=== PATIENT | female | born 1945 | race Caucasian/White ===

== ENCOUNTER → 2018-05-04 01:12 | Outpatient (CLI) | payer MEDICARE, SELFPAY ==
--- NOTE | 2018-05-04 10:30 | MERGE_ITS ---
*[facility]* *[facility]* [address] [place] [address] Date of study: 05/04/2018 Transthoracic Echocardiography M-mode, complete 2D, complete spectral Doppler, and color Doppler *STUDY CONCLUSIONS* Impressions: Cardiomyopathy, improved from the study of 10/2017. Summary: 1. Left ventricle: The cavity size was normal. Wall thickness was increased in a pattern of mild LVH. Systolic function was mildly to moderately reduced. The estimated ejection fraction was 40%. Diffuse hypokinesis. 2. Ventricular septum: Septal motion showed paradoxical motion consistent with Bundle Branch Block. 3. Aortic valve: There was trivial regurgitation. 4. Mitral valve: Mildly calcified annulus. Mildly thickened leaflets. There was mild regurgitation. 5. Left atrium: The atrium was mildly dilated. 6. Right ventricle: The cavity size was normal. Wall thickness was normal. Systolic function was reduced. 7. Pulmonary arteries: Pulmonary systolic pressure was moderately increased, in the range of 45mm Hg to 50mm Hg. *PATIENT PRESENTATION* Height: 167.6cm ((66in) ) S/D Pressure: 127 / 48 Weight: 108.9kg ((239.5lb) ) BSA: 2.3m^2 Test start time: 10:46 AM. Test stop time: 11:35 AM. PERFORMING Unknown ORDERING Tong Ray REFERRING Tong Ray PERFORMING [facility] SKI GUIDE RT Lucrecia (R)(CT)MAR *PROCEDURE DATA* Procedure information: This study was interpreted by [facility]. Pertinent images and digital data are archived for permanent storage and are available for subsequent review. Comparison was made to the study of 11/02/2017. Study status: Routine. Transthoracic echocardiography. M-mode, complete 2D, complete spectral Doppler, and color Doppler. A Transthoracic Echocardiogram was performed. Scanning was performed from the parasternal, apical, subcostal, and suprasternal notch acoustic windows. Images were obtained using an [id number] cardiac ultrasound machine. Image quality was adequate. Study completion: The patient tolerated the procedure well. There were no complications. History: PMH: Cardiomyopathy. CAD with no angina pectoris. *CARDIAC ANATOMY* Left ventricle: The cavity size was normal. Wall thickness was increased in a pattern of mild LVH. Systolic function was mildly to moderately reduced. The estimated ejection fraction was 40%. Diffuse hypokinesis. Aortic valve: Trileaflet; normal thickness leaflets. Mobility was not restricted. Doppler: Transvalvular velocity was within the normal range. There was no stenosis. There was trivial regurgitation. VTI ratio of LVOT to aortic valve: 0.53. Valve area (VTI): 1.7cm^2. Indexed valve area (VTI): 0.7cm^2/m^2. Peak velocity ratio of LVOT to aortic valve: 0.5. Valve area (Vmax): 1.6cm^2. Indexed valve area (Vmax): 0.7cm^2/m^2. Mean velocity ratio of LVOT to aortic valve: 0.6. Valve area (Vmean): 1.9cm^2. Indexed valve area (Vmean): 0.8cm^2/m^2. Mean gradient (S): 9.1mm Hg. Peak gradient (S): 18.9mm Hg. Aorta: Aortic root: The aortic root was normal in size. Ascending aorta: The ascending aorta was normal in size. Mitral valve: Mildly calcified annulus. Mildly thickened leaflets. Mobility was not restricted. Doppler: Transvalvular velocity was within the normal range. There was no evidence for stenosis. There was mild regurgitation. Valve area by pressure half-time: 3.3cm^2. Indexed valve area by pressure half-time: 1.4cm^2/m^2. Peak gradient (D): 2.1mm Hg. Left atrium: The atrium was mildly dilated. Right ventricle: The cavity size was normal. Wall thickness was normal. Systolic function was reduced. Ventricular septum: Septal motion showed paradoxical motion consistent with Bundle Branch Block. Pulmonic valve: Structurally normal valve. Doppler: Transvalvular velocity was within the normal range. There was no evidence for stenosis. There was trivial regurgitation. Peak gradient (S): 9.3mm Hg. Tricuspid valve: Structurally normal valve. Doppler: Transvalvular velocity was within the normal range. There was no evidence for stenosis. There was mild regurgitation. Pulmonary artery: Pulmonary systolic pressure was moderately increased, in the range of 45mm Hg to 50mm Hg. Right atrium: The atrium was normal in size. Pericardium: There was no pericardial effusion. Systemic veins: Inferior vena cava: Well visualized. The vessel was patent and normal in size. The respirophasic diameter changes were in the normal range (greater than or equal to 50%). Baseline ECG: Sinus bradycardia. Measurements Left ventricle Value 11/02/2017 Reference LV ID, ED, PLAX 5.0 cm 4.9 3.5 - 6.0 LV ID, ES, PLAX (H) 4.1 cm 4.1 2.1 - 4.0 LV PW thickness, ED, PLAX 1.1 cm 1.1 LV end-diastolic volume, 101 ml 128 1-p A2C LV ejection fraction, 1-p 34 % 43 A2C LV end-diastolic volume, 90 ml 105 1-p A4C LV ejection fraction, 1-p 34 % 34 A4C LV e', lateral 0.074 m/sec LV E/e', lateral 10 LV e', medial 0.058 m/sec LV E/e', medial 13 LV e', average 0.066 m/sec LV E/e', average 11 Ventricular septum Value 11/02/2017 Reference IVS thickness, ED, PLAX 1.1 cm 1.2 LVOT Value 11/02/2017 Reference LVOT ID, A-P 2.0 cm 2.0 LVOT area 3.2 cm^2 3.2 LVOT peak velocity, S 1.09 m/sec 1.22 LVOT mean velocity, S 0.87 m/sec LVOT VTI, S 27.6 cm 29.1 LVOT peak gradient, S 4.8 mm Hg 5.9 LVOT mean gradient, S 3.2 mm Hg 2.9 Stroke volume (SV), LVOT 89 ml DP Stroke index (SV/bsa), 39 ml/m^2 LVOT DP Aortic valve Value 11/02/2017 Reference Aortic valve peak 2.2 m/sec 2.1 velocity, S Aortic valve mean 1.44 m/sec 0.02 velocity, S Aortic valve VTI, S 52.5 cm Aortic mean gradient, S 9.1 mm Hg 10.2 Aortic peak gradient, S 18.9 mm Hg 18 VTI ratio, LVOT/AV 0.53 0.54 Aortic valve area, VTI 1.7 cm^2 1.7 Velocity ratio, peak, 0.5 0.57 LVOT/AV Aortic valve area, peak 1.6 cm^2 1.8 velocity Velocity ratio, mean, 0.6 LVOT/AV Aortic valve area, mean 1.9 cm^2 velocity Aortic valve area/bsa, 0.8 cm^2/m^2 mean velocity Aorta Value 11/02/2017 Reference Aortic root ID, ED 2.6 cm 2.6 Ascending aorta ID, A-P, S 3.1 cm 3.0 RVOT Value 11/02/2017 Reference RVOT VTI, S 19.0 cm 17.4 Left atrium Value 11/02/2017 Reference LA ID, A-P, ES 4.1 cm LA ID/bsa, A-P 1.8 cm/m^2 <=2.2 LA area, ES, A4C 20 cm^2 20 8.8 - 23.4 LA area, ES, A2C 21 cm^2 LA volume/bsa, ES, 1-p A4C 32 ml/m^2 29 LA volume, ES, 2-p 70 ml LA volume/bsa, ES, 2-p 31 ml/m^2 LA/aortic root ratio 1.61 1.43 Mitral valve Value 11/02/2017 Reference Mitral E-wave peak 0.73 m/sec 0.62 velocity Mitral A-wave peak 0.93 m/sec 0.85 velocity Mitral deceleration time 229 ms 290 150 - 230 Mitral pressure half-time 66 ms 84 Mitral peak gradient, D 2.1 mm Hg Mitral E/A ratio, peak 0.79 0.73 Mitral valve area, PHT, DP 3.3 cm^2 2.6 Pulmonary veins Value 11/02/2017 Reference Pulmonary vein peak 0.67 m/sec 0.53 velocity, S Pulmonary vein peak 0.41 m/sec 0.55 velocity, D Pulmonary vein velocity 1.64 0.96 ratio, peak, S/D Pulmonary vein A-wave 0.31 m/sec 0.33 reversal peak velocity Pulmonary vein A-wave 141 ms 141 reversal duration Tricuspid valve Value 11/02/2017 Reference Tricuspid regurg peak 4.1 m/sec 3.9 velocity Tricuspid peak RV-RA 68 mm Hg 59.7 gradient Right atrium Value 11/02/2017 Reference RA area, ES, A4C 17.9 cm^2 21 8.3 - 19.5 Pulmonic valve Value 11/02/2017 Reference Pulmonic peak gradient, S 9.3 mm Hg 6.6 Legend: (L) and (H) rakel values outside specified reference range. I have personally reviewed the images and have reviewed and edited the reported findings. Electronically signed by Tong Ray 05/04/2018 12:09
== END ==
PROVIDERS: PCP Nurse Practitioner Family; Visit Provider Student in an Organized Health Care Education/Training Program
DX: I25.10 Atherosclerotic heart disease of native coronary artery without angina pectoris (principal); I42.9 Cardiomyopathy, unspecified; I08.0 Rheumatic disorders of both mitral and aortic valves; Z98.61 Coronary angioplasty status
CPT/HCPCS: 93306

== ENCOUNTER 2018-06-21 01:09 | Outpatient (CLI) | payer MEDICARE, SELFPAY ==
--- NOTE | 2018-06-21 08:15 | DI.CTLCSR_ITS ---
SYMPTOMS/DIAGNOSIS: COPD STAGE III, SEVERE, J44.9; FORMER SMOKER, Z87.891, H/O 50-60 YEARS SMOKING, ? LUNG CA CT SCAN OF THE CHEST: Noncontrast CT scan of the chest was performed according to the low dose CT protocol. There are no priors for comparison. There is atherosclerosis of the thoracic aorta, but no aneurysmal dilatation is present. The heart size is within normal limits. No significant pericardial effusion is seen. Coronary artery calcifications are identified. No significant mediastinal or hilar adenopathy is seen on this noncontrast examination. No pleural effusion or pneumothorax is present. Moderately severe central lobular emphysematous changes are present in the lungs. No focal consolidating infiltrates are seen. Several noncalcified nodular densities are present in the lungs, the largest is 8 mm in diameter, the smallest is 4 mm in diameter. Note is made of a calcified granuloma in the left upper lobe laterally. The tracheobronchial tree is unremarkable. Upper abdominal images show multiple stones within the gallbladder. Findings consistent with DISH in the thoracic spine are noted. IMPRESSION: 1. Multiple pulmonary nodules. The largest measures 8 mm in diameter. Category 4B. 2. Moderately severe emphysematous changes in the lungs. 3. Cholelithiasis. Lung-RAD Category: 4B- Suspicious Lung- RAD Management of Findings: Chest CT, PET/CT, and/or tissue sampling
== END 2018-06-21 01:29 ==
PROVIDERS: PCP Nurse Practitioner Family; Visit Provider Nurse Practitioner Family
DX: Z12.2 Encounter for screening for malignant neoplasm of respiratory organs (principal); J44.9 Chronic obstructive pulmonary disease, unspecified; R91.8 Other nonspecific abnormal finding of lung field; J43.9 Emphysema, unspecified; K80.20 Calculus of gallbladder without cholecystitis without obstruction
CPT/HCPCS: G0297

== ENCOUNTER 2018-07-04 17:09 | Inpatient (IN) | payer MEDICARE, SELFPAY ==
[2018-07-04 17:13] VITALS: BP 163/46; PULSE 104; RESP 21; TEMP 37.8; O2SAT 90
[2018-07-04 17:17] VITALS: RESP 15
--- NOTE | 2018-07-04 17:31 | W.ED.GENAD ---
Discharge Plan Discharge Details Chief Complaint: SOB Reason For Visit: PNEUMONIA, COPD EXACERBATION Admit Date/Time: 07/04/18 19:42 Admit Provider: Nithin De Leon Attending Provider: Nithin De Leon Primary Care Provider: Gissel Carbone ED Provider: Atul Moralez Medical Decision Making 73-year-old female with oxygen dependent COPD presents with worsening cough shortness of breath of weeks time. She arrives afebrile with but with initial oxygenation in the 80s on home levels of 2 L. She is mildly tachycardic on with some clipped sentences due to dyspnea. Patient's differential diagnosis includes pneumonia, bronchitis, COPD exacerbation, consideration of fluid overload. She has history of dilated cardiomyopathy and stage C heart failure. Patient IV access established, given DuoNeb updraft, parenteral steroids, referred for laboratory testing and chest XR. While in the ED, the patient developed chest pain Prev Data: Cardiac catheterization from December 2017: Left main normal. Second diagonal 40%. Left circumflex 40%. RCA 40%. LVEDP 22. No intervention; Nuclear stress test from November 2017: Moderate to large defect involving the mid to apical anterior anteroseptal, inferior septal and apical hendricks; Echocardiogram from October 2017 reviewd. Normal sized LV. EF 35 to 40%. Mild RV dysfunction. PAPS 45 to 50 mmH. Today the patient has a negative troponin, persistent renal insufficiency, and BNP 1210. CXR with increased patchy opacification in the lung bases which may represent infiltrates. Possible small right pleural effusion. No cardiomegaly. Pt was diuresed with lasix, given aspirin, and required 2 SL NTG with control of complaint of chest discomfort. She has multimodal reasons for acute chest discomfort including fluid overload, underlying pneumonia. Case discussed with Dr De Leon and pt to be admitted. ECG Data Attestation: I personally reviewed and interpreted this ECG (s) as follows: Interpretation: Normal sinus rhythm with left bundle branch block pattern, no ST segment elevation present, similar to September 2011 HPI General Mode of arrival: wheelchair. Date/Time Provider Initiated Documentation: 07/04/18 17:22. Limitations to Documentation: no limitations. Information obtained by: patient. History of Present Illness described as moderate, Quality is described as constant, and is localized to the chest. Patient reports no radiation. Patient started experiencing this day(s) and it has been constant. No relieving factors improve symptom(s), No exacerbating factors reported . HPI Narrative: Shortness of breath: 73-year-old female presents from home with weeks to months of shortness of breath with cough and congestion. She has 2 L oxygen dependent uses inhalers at home. She not currently on steroids. States she has had a fever and increased production of sputum over the past few days time. She has not had chest pain or lower extremity edema. Related Data Home Medications Medication Instructions Recorded Confirmed aspirin [Aspir-81] 81 mg PO DAILY 08/06/13 07/04/18 nitroglycerin [Nitrostat] 0.4 mg PO PRN PRN 08/06/13 07/04/18 triamcinolone acetonide 1 applic TOPICAL PRN PRN 08/06/13 07/04/18 levalbuterol tartrate [Xopenex HFA] 45 mcg INHALATION Q4H PRN #1 01/24/14 07/04/18 inhaler cholecalciferol (vitamin D3) 2,000 unit PO DAILY 10/09/15 07/04/18 [Vitamin D3] hydroxyzine pamoate [Vistaril] 25 mg PO DAILY PRN 10/09/15 07/04/18 losartan 100 mg PO DAILY 10/09/15 07/04/18 omeprazole [Prilosec] 20 mg PO DAILY PRN 10/09/15 07/04/18 ketoconazole 60 gm TOPICAL BID #1 tube 02/22/16 07/04/18 acetaminophen 650 mg PO Q4H PRN #30 tablet.er 11/12/17 07/04/18 bisoprolol fumarate 10 mg PO DAILY #60 tab-cap 12/01/17 07/04/18 atorvastatin 40 mg PO DAILY #30 tab-cap 01/06/18 07/04/18 spironolactone 12.5 mg PO DAILY #30 tab-cap 01/06/18 07/04/18 Fluticasone/Salmeterol [Advair 1 ea INHALATION BID 02/12/18 07/04/18 500-50 Diskus] Pentoxifylline 400 mg PO TID 02/12/18 07/04/18 benzonatate 100 mg PO TID PRN PRN 02/12/18 07/04/18 clotrimazole 1 applic TOPICAL TID 02/12/18 07/04/18 gabapentin 100 mg PO HS 02/12/18 07/04/18 glipizide 5 mg PO DAILY 02/12/18 07/04/18 insulin detemir U-100 [Levemir 50 unit SQ QPM 02/12/18 07/04/18 U-100 Insulin] ipratropium-albuterol 3 ml INHALATION Q6H PRN PRN 02/12/18 07/04/18 metformin 1,000 mg PO DAILY 02/12/18 07/04/18 budesonide-formoterol [Symbicort] 2 puff INHALATION BID inh 02/18/18 07/04/18 furosemide 40 mg PO BID DIURETIC tab 02/18/18 07/04/18 Previous Rx's Medication Instructions Recorded ketoconazole 60 gm TOPICAL BID #1 tube 02/22/16 acetaminophen 650 mg PO Q4H PRN #30 tablet.er 11/12/17 bisoprolol fumarate 10 mg PO DAILY #60 tab-cap 12/01/17 atorvastatin 40 mg PO DAILY #30 tab-cap 01/06/18 spironolactone 12.5 mg PO DAILY #30 tab-cap 01/06/18 budesonide-formoterol [Symbicort] 2 puff INHALATION BID inh 02/18/18 furosemide 40 mg PO BID DIURETIC tab 02/18/18 Allergies Allergy/AdvReac Type Severity Reaction Status Date / Time peach Allergy Intermediate HIVES Unverified 07/04/18 20:44 Iodinated Contrast- Oral and Allergy Unknown Unverified 07/04/18 20:44 IV Dye [Iodinated Contrast Media - IV Dye] morphine AdvReac Intermediate Nausea Unverified 07/04/18 20:44 General Stated Complaint: SOB KRYSTAL: 3 Review of Systems Review of Systems 8 systems reviewed and otherwise PFSH Social History Smoking/Tobacco Use Status: Former Tobacco Use Surgical History 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) Exam Narrative Exam Narrative: GEN: awake, alert, oriented 3. Pleasant, well groomed, interactive. HEAD: Normocephalic, atraumatic ENT: Mucous membranes moist, oropharynx unremarkable, External ear exam unremarkable EYES: PERRL, EOMI NECK: Full ROM, no PATRICIA, no menigismus CHEST/RESP: Nontender, diminished throughout, cough with end expiratory wheeze bilaterally CARDIOVASCULAR: Regular, tachycardia, no murmur, rub natali. 2+ Rad pulse bilateral ABDOMEN: Soft, nontender, no mass. +Bowel sounds EXT: Full ROM, 1+ bilateral symmetric pretibial edema, no rash Neuro: Grossly normal neurologic exam, conversant, interactive. Psych: Speech fluent, thoughts congruent, affect normal Course Vital Signs Temperature 37.8 C H 07/04/18 17:13 Pulse 104 H 07/04/18 17:13 Respiratory Rate 21 07/04/18 17:13 Blood Pressure 163/46 H 07/04/18 17:13 Pulse Oximetry 90 L 07/04/18 17:13 Temperature 37.8 C H 07/04/18 17:13 Temperature Source Temporal Artery Scan 07/04/18 17:13 Pulse 104 H 07/04/18 17:13 Respiratory Rate 15 07/04/18 17:17 Respiratory Effort 07/04/18 17:17 Blood Pressure 163/46 H 07/04/18 17:13 Pulse Oximetry 90 L 07/04/18 17:13 Oxygen Delivery Method Nasal Cannula 07/04/18 17:13 Oxygen Flow Rate 5 07/04/18 17:13 Pain Level 9 07/04/18 17:13 Comment 07/04/18 17:13
--- NOTE | 2018-07-04 17:34 | ED.GENADUL_ITS ---
Discharge Plan Discharge Details Chief Complaint: SOB Reason For Visit: PNEUMONIA, COPD EXACERBATION Admit Date/Time: 07/04/18 19:42 Admit Provider: Nithin De Leon Attending Provider: Nithin De Leon Primary Care Provider: Gissel Carbone ED Provider: Atul Moralez Medical Decision Making 73-year-old female with oxygen dependent COPD presents with worsening cough shortness of breath of weeks time. She arrives afebrile with but with initial oxygenation in the 80s on home levels of 2 L. She is mildly tachycardic on with some clipped sentences due to dyspnea. Patient's differential diagnosis includes pneumonia, bronchitis, COPD exacerbation, consideration of fluid overload. She has history of dilated cardiomyopathy and stage C heart failure. Patient IV access established, given DuoNeb updraft, parenteral steroids, referred for laboratory testing and chest XR. While in the ED, the patient developed chest pain Prev Data: Cardiac catheterization from December 2017: Left main normal. Second diagonal 40%. Left circumflex 40%. RCA 40%. LVEDP 22. No intervention; Nuclear stress test from November 2017: Moderate to large defect involving the mid to apical anterior anteroseptal, inferior septal and apical hendricks; Echocardiogram from October 2017 reviewd. Normal sized LV. EF 35 to 40%. Mild RV dysfunction. PAPS 45 to 50 mmH. Today the patient has a negative troponin, persistent renal insufficiency, and BNP 1210. CXR with increased patchy opacification in the lung bases which may represent infiltrates. Possible small right pleural effusion. No cardiomegaly. Pt was diuresed with lasix, given aspirin, and required 2 SL NTG with control of complaint of chest discomfort. She has multimodal reasons for acute chest discomfort including fluid overload, underlying pneumonia. Case discussed with Dr De Leon and pt to be admitted. ECG Data Attestation: I personally reviewed and interpreted this ECG (s) as follows: Interpretation: Normal sinus rhythm with left bundle branch block pattern, no ST segment elevation present, similar to September 2011 HPI General Mode of arrival: wheelchair . Date/Time Provider Initiated Documentation: 07/04/18 17:22 . Limitations to Documentation: no limitations . Information obtained by: patient . History of Present Illness described as moderate, Quality is described as constant, and is localized to the chest. Patient reports no radiation. Patient started experiencing this day(s) and it has been constant. No relieving factors improve symptom(s ), No exacerbating factors reported . HPI Narrative: Shortness of breath: 73-year-old female presents from home with weeks to months of shortness of breath with cough and congestion. She has 2 L oxygen dependent uses inhalers at home. She not currently on steroids. States she has had a fever and increased production of sputum over the past few days time. She has not had chest pain or lower extremity edema. Related Data Home Medications Medication Instructions Recorded Confirmed aspirin [Aspir-81] 81 mg PO DAILY 08/06/13 07/04/18 nitroglycerin [Nitrostat] 0.4 mg PO PRN PRN 08/06/13 07/04/18 triamcinolone acetonide 1 applic TOPICAL PRN PRN 08/06/13 07/04/18 levalbuterol tartrate [Xopenex HFA] 45 mcg INHALATION Q4H PRN #1 01/24/14 inhaler cholecalciferol (vitamin D3) 2,000 unit PO DAILY 10/09/15 07/04/18 [Vitamin D3] hydroxyzine pamoate [Vistaril] 25 mg PO DAILY PRN 10/09/15 07/04/18 losartan 100 mg PO DAILY 10/09/15 07/04/18 omeprazole [Prilosec] 20 mg PO DAILY PRN 10/09/15 07/04/18 ketoconazole 60 gm TOPICAL BID #1 tube 02/22/16 07/04/18 acetaminophen 650 mg PO Q4H PRN #30 tablet.er 11/12/17 07/04/18 bisoprolol fumarate 10 mg PO DAILY #60 tab-cap 12/01/17 07/04/18 atorvastatin 40 mg PO DAILY #30 tab-cap 01/06/18 07/04/18 spironolactone 12.5 mg PO DAILY #30 tab-cap 01/06/18 07/04/18 Fluticasone/Salmeterol [Advair 1 ea INHALATION BID 02/12/18 07/04/18 500-50 Diskus] Pentoxifylline 400 mg PO TID 02/12/18 07/04/18 benzonatate 100 mg PO TID PRN PRN 02/12/18 07/04/18 clotrimazole 1 applic TOPICAL TID 02/12/18 07/04/18 gabapentin 100 mg PO HS 02/12/18 07/04/18 glipizide 5 mg PO DAILY 02/12/18 07/04/18 insulin detemir U-100 [Levemir 50 unit SQ QPM 02/12/18 07/04/18 U-100 Insulin] ipratropium-albuterol 3 ml INHALATION Q6H PRN PRN 02/12/18 07/04/18 metformin 1,000 mg PO DAILY 02/12/18 07/04/18 budesonide-formoterol [Symbicort] 2 puff INHALATION BID inh 02/18/18 07/04/18 furosemide 40 mg PO BID DIURETIC tab 02/18/18 07/04/18 Previous Rx's Medication Instructions Recorded ketoconazole 60 gm TOPICAL BID #1 tube 02/22/16 acetaminophen 650 mg PO Q4H PRN #30 tablet.er 11/12/17 bisoprolol fumarate 10 mg PO DAILY #60 tab-cap 12/01/17 atorvastatin 40 mg PO DAILY #30 tab-cap 01/06/18 spironolactone 12.5 mg PO DAILY #30 tab-cap 01/06/18 budesonide-formoterol [Symbicort] 2 puff INHALATION BID inh 02/18/18 furosemide 40 mg PO BID DIURETIC tab 02/18/18 Allergies Allergy/AdvReac Type Severity Reaction Status Date / Time peach Allergy Intermediate HIVES Unverified 07/04/18 20:44 Iodinated Contrast- Oral and Allergy Unknown Unverified 07/04/18 20:44 IV Dye [Iodinated Contrast Media - IV Dye] morphine AdvReac Intermediate Nausea Unverified 07/04/18 20:44 General Stated Complaint: SOB KRYSTAL: 3 Review of Systems Review of Systems 8 systems reviewed and otherwise PFSH Social History Smoking/Tobacco Use Status: Former Tobacco Use Surgical History 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) Exam Narrative Exam Narrative: GEN: awake, alert, oriented 3. Pleasant, well groomed, interactive. HEAD: Normocephalic, atraumatic ENT: Mucous membranes moist, oropharynx unremarkable, External ear exam unremarkable EYES: PERRL, EOMI NECK: Full ROM, no PATRICIA, no menigismus CHEST/RESP: Nontender, diminished throughout, cough with end expiratory wheeze bilaterally CARDIOVASCULAR: Regular, tachycardia, no murmur, rub natali. 2+ Rad pulse bilateral ABDOMEN: Soft, nontender, no mass. +Bowel sounds EXT: Full ROM, 1+ bilateral symmetric pretibial edema, no rash Neuro: Grossly normal neurologic exam, conversant, interactive. Psych: Speech fluent, thoughts congruent, affect normal Course Vital Signs Temperature 37.8 C H 07/04/18 17:13 Pulse 104 H 07/04/18 17:13 Respiratory Rate 21 07/04/18 17:13 Blood Pressure 163/46 H 07/04/18 17:13 Pulse Oximetry 90 L 07/04/18 17:13 Temperature 37.8 C H 07/04/18 17:13 Temperature Source Temporal Artery Scan 07/04/18 17:13 Pulse 104 H 07/04/18 17:13 Respiratory Rate 15 07/04/18 17:17 Respiratory Effort 07/04/18 17:17 Blood Pressure 163/46 H 07/04/18 17:13 Pulse Oximetry 90 L 07/04/18 17:13 Oxygen Delivery Method Nasal Cannula 07/04/18 17:13 Oxygen Flow Rate 5 07/04/18 17:13 Pain Level 9 07/04/18 17:13 Comment 07/04/18 17:13
[2018-07-04 17:44] LABS: Abs Immature Grans 0.02 k/cumm (0.0-0.09); Absolute Basophil Count 0.01 k/cumm (0.0-0.2); Absolute Eosinophil Count 0.06 k/cumm (0.0-0.7); Absolute Lymphocyte Count 1.67 k/cumm (1.2-3.4); Absolute Monocyte Count 1.11 k/cumm (0.11-0.7); Absolute Neutrophil Count 6.69 k/cumm (1.2-6.7); Basophils % 0.1; Eosinophils % 0.6; HCT 36.4 % (36.0-46.0); HGB 12.1 g/dL (12.0-15.5); Immature Grans % 0.2; Lymphocytes % 17.5; Mean Corp. HGB Concentration 33.2 g/dL (32.0-36.0); Mean Corpuscular Volume 96.3 fL (80-95); Mean Platelet Volume 10.7 fL (8.0-11.0); Monocytes % 11.6; Platelet Count 174 x1000/uL (130-400); RBC 3.78 m/cumm (4.00-5.20); RBC Distribution Width 13.2 % (11.7-14.6); White Blood Cell Count 9.56 k/cumm (4.4-10.8)
[2018-07-04 18:00] LABS: ALT 21 U/L (12-78); AST 14 U/L (15-37); Albumin 3.3 g/dL (3.4-5.0); Alkaline Phosphatase 92 U/L (46-116); Anion Gap 11.2 mmol/L (3-11); BUN 21 mg/dL (7-18); Bilirubin, Total 0.9 mg/dL (0.2-1.0); CO2 24.8 mmol/L (21.0-32.0); CREATININE 1.12 mg/dL (0.55-1.02); Calcium 8.7 mg/dL (8.5-10.1); Chloride 104 mmol/L (98-107); Estimated GFR 47.82 (mL/min/1.73m2); Glucose 135 mg/dL (70-100); Magnesium 1.9 mg/dL (1.8-2.4); NT-proBNP 1210 pg/mL; Potassium 3.8 mmol/L (3.5-5.1); Sodium 140 mmol/L (136-145); Total Protein 7.2 g/dL (6.4-8.2)
[2018-07-04 18:02] LABS: Troponin I < 0.02 ng/mL (0.00-0.06)
--- NOTE | 2018-07-04 18:08 | DI.RAD_ITS ---
SYMPTOMS/DIAGNOSIS: SHORT OF BREATH, CHEST PAIN PORTABLE AP CHEST: Comparison 02/12/18. The heart size and pulmonary vasculature are stable. There are bilateral infiltrates in the lower lobes and the right upper lobe. No definite gross effusions or pneumothoraces are identified. Degenerative changes are seen in the spine and shoulders bilaterally. IMPRESSION: Bilateral pulmonary infiltrates suspicious for pneumonia.
[2018-07-04 18:23] VITALS: RESP 8
[2018-07-04] MEDS: MAGNESIUM SULFATE 2 GM/50 ML BAG IVPB (18:23)
[2018-07-04] MEDS: Albuterol/Ipratropium 3 ML UPD VIAL UPD (18:23)
[2018-07-04] MEDS: methylPREDNISolone SUCC 125 MG VIAL IVP (18:24)
[2018-07-04] MEDS: Furosemide 40 MG/4 ML VIAL IVP (18:25)
[2018-07-04] MEDS: Aspirin 81 MG CHEW 162 MG PO (18:31)
--- NOTE | 2018-07-04 19:02 | DI.VRAD_ITS ---
EXAM: XR Chest, 1 View EXAM DATE/TIME: 07/04/2018 6:09 PM CLINICAL HISTORY: 73 years old, female; Signs and symptoms; Cough and shortness of breath; Patient HX: Cough, congestion, SOB TECHNIQUE: XR of the chest, 1 view. COMPARISON: CR CHEST 2 VIEWS PA,LAT 02/12/2018 2:47 PM FINDINGS: Lungs: There are patchy increased opacification in lung bases which may represent infiltrates. Pleural space: Possible small right pleural effusion. Heart/Mediastinum: Unremarkable. No cardiomegaly. Bones/joints: Unremarkable for patient's age. Degenerative changes of the spine. IMPRESSION: 1. Patchy increased opacification in lung bases which may represent infiltrates. Follow up is suggested. 2. Small right pleural effusion. Dictated and Authenticated by: Simón Ochoa MD. Ordering:SHANE CEVALLOS MD
[2018-07-04] MEDS: Enoxaparin 40 MG/0.4 ML SYR SC (20:34)
[2018-07-04 20:59] VITALS: PULSE 86
[2018-07-04 21:06] VITALS: BP 133/73; PULSE 85; RESP 29; TEMP 37.8; O2SAT 92
[2018-07-04] MEDS: Benzonatate 100 MG CAP PO (21:52)
[2018-07-04] MEDS: Acetaminophen 325 MG TAB PO (21:52)
[2018-07-04] MEDS: Pantoprazole 40 MG TABCR PO (21:52)
[2018-07-04] MEDS: Gabapentin 100 MG CAP PO (21:53)
--- NOTE | 2018-07-04 22:18 | W.PM.HP.N ---
Date of service: 07/04/18 Time of Service: 22:19 Assessment and Plan (1) Pneumonia: Current visit: Yes Status: Acute Continue ceftriaxone and azithromycin started in the emergency room. Check sputum culture and blood culture results. Continue aerosolized bronchodilators and IV corticosteroids along with pulmonary toiletry measures including incentive spirometry and Acapella flutter valve. (2) COPD exacerbation: Current visit: Yes Status: Acute As above (3) Acute on chronic systolic (congestive) heart failure: Current visit: Yes Status: Acute Lasix in the emergency room. I will resume her spironolactone and oral Lasix and repeat her BMP and proBNP in the morning. She may require further IV diuretics or possibly a continuous furosemide drip if she is not responding to current treatment. We will cycle her troponins tonight to ensure that there is been no acute ischemic event. She may need a repeat echocardiogram tomorrow to reassess her LV function If there is any sign of acute ischemic injury. History of Present Illness Chief Complaint: Dyspnea Narrative: 73-year-old female with a past medical history of COPD requiring home oxygen at 2-3 L/min per nasal cannula as well as a history of dilated cardiomyopathy (LVEF 40%, diffuse hypokinesis and mild LVH with trivial AI, mild MR, reduced RV systolic function, moderate pulmonary hypertension per echocardiogram dated May 04, 2018). Presents to the emergency department with progressive dyspnea over the last 2-3 days associated with low-grade fever of 101 and purulent sputum production. Upon evaluation in the emergency room she is found to have bibasilar infiltrates along with elevated proBNP of 1200 with a normal troponin level and no leukocytosis. Patient was given multiple DuoNeb aerosol treatments and IV Solu-Medrol and blood cultures were obtained and she was started on Rocephin and azithromycin and given a dose of Lasix. She feels somewhat better now but still gets dyspneic with any kind of physical effort including walking across the room to use the bathroom. She has had some atypical chest discomfort is associated with coughing and deep breathing. After her 2 DuoNeb treatments emergency room she had sharp right-sided chest pain. She was treated with sublingual nitroglycerin with relief of her discomfort. She has known diffuse coronary artery disease secondary to her diabetes mellitus. She had a cardiac catheterization December 31, 2017 at [facility] that showed diffuse multivessel disease but no focal stenosis over 40%. Dr. Corky Del Toro, business administration teacher at [facility] performed a cardiac catheterization and send a follow-up letter to Dr. Ray. Patient is now admitted to the hospital for treatment of community-acquired pneumonia and COPD exacerbation as well as exacerbation of her cardiomyopathy. Meds Home Medications Medication Instructions Recorded Confirmed Type aspirin [Aspir-81] 81 mg PO DAILY 08/06/13 07/04/18 History nitroglycerin [Nitrostat] 0.4 mg PO PRN PRN 08/06/13 07/04/18 History triamcinolone acetonide 1 applic TOPICAL PRN PRN 08/06/13 07/04/18 History levalbuterol tartrate [Xopenex HFA] 45 mcg INHALATION Q4H PRN #1 01/24/14 07/04/18 History inhaler cholecalciferol (vitamin D3) 2,000 unit PO DAILY 10/09/15 07/04/18 History [Vitamin D3] hydroxyzine pamoate [Vistaril] 25 mg PO DAILY PRN 10/09/15 07/04/18 History losartan 100 mg PO DAILY 10/09/15 07/04/18 History omeprazole [Prilosec] 20 mg PO DAILY PRN 10/09/15 07/04/18 History ketoconazole 60 gm TOPICAL BID #1 tube 02/22/16 07/04/18 Rx acetaminophen 650 mg PO Q4H PRN #30 tablet.er 11/12/17 07/04/18 Rx bisoprolol fumarate 10 mg PO DAILY #60 tab-cap 12/01/17 07/04/18 Rx atorvastatin 40 mg PO DAILY #30 tab-cap 01/06/18 07/04/18 Rx spironolactone 12.5 mg PO DAILY #30 tab-cap 01/06/18 07/04/18 Rx Fluticasone/Salmeterol [Advair 1 ea INHALATION BID 02/12/18 07/04/18 History 500-50 Diskus] Pentoxifylline 400 mg PO TID 02/12/18 07/04/18 History benzonatate 100 mg PO TID PRN PRN 02/12/18 07/04/18 History clotrimazole 1 applic TOPICAL TID 02/12/18 07/04/18 History gabapentin 100 mg PO HS 02/12/18 07/04/18 History glipizide 5 mg PO DAILY 02/12/18 07/04/18 History insulin detemir U-100 [Levemir 50 unit SQ QPM 02/12/18 07/04/18 History U-100 Insulin] ipratropium-albuterol 3 ml INHALATION Q6H PRN PRN 02/12/18 07/04/18 History metformin 1,000 mg PO DAILY 02/12/18 07/04/18 History budesonide-formoterol [Symbicort] 2 puff INHALATION BID inh 02/18/18 07/04/18 Rx furosemide 40 mg PO BID DIURETIC tab 02/18/18 07/04/18 Rx Allergies Allergy/AdvReac Type Severity Reaction Status Date / Time peach Allergy Intermediate HIVES Unverified 07/04/18 20:44 Iodinated Contrast- Oral and Allergy Unknown Unverified 07/04/18 20:44 IV Dye [Iodinated Contrast Media - IV Dye] morphine AdvReac Intermediate Nausea Unverified 07/04/18 20:44 Exam Const General: cooperative, disheveled and ill appearing Nutritional Appearance: obese Orientation: alert, awake and oriented x3 HENMT Head: normal to inspection General nose exam: external nose normal and nares normal Face and sinus: normal facial exam Mouth: oral mucosae normal Teeth and gingiva: abnormal tooth or associated gingiva (Missing multiple teeth from upper jaw) and poor dentition Throat: posterior oropharynx normal Eyes General: appearance normal, both eyes and all related structures EOM: EOM intact bilaterally Direct ophthalmoscopy: normal light reflex Neck Neck: normal visual inspection, full ROM, no lymphadenopathy, trachea midline, supple and no JVD Thyroid: thyroid normal Carotids: normal carotid upstroke Lymphatic: no lymphadenopathy noted Chest Chest: normal inspection of the chest Resp Effort & Inspection: able to speak in complete sentences Auscultation: rales bilaterally and wheezes expiratory wheezes Cardio Rate: regular rate Rhythm: regular rhythm Heart Sounds: S1 normal, S2 normal, normal, physiologic split S2 and no murmurs Bruits: no carotid bruits GI Inspection: obesity Palpation: soft Percussion: normal to percussion Auscultation: normal bowel sounds Neuro General: alert, awake, oriented x3, moves all extremities and no focal motor deficits Cranial Nerves: CN's II-XI intact bilaterally Cognition: normal cognition Speech: speech normal Gait: normal gait Motor: muscle tone normal throughout Extrem General: full ROM, no joint enlargement noted, no calf tenderness and edema (1+) Laterality: bilateral Psych Appearance: disheveled Mental Status: mental status grossly normal Speech and Movement: speech and movement normal Mood: congruent mood Affect: normal affect Attitude: cooperative Thought Process: normal Thought Content: normal Insight: insight good Judgment: judgment good Results Labs : 07/04/18 13:35 07/04/18 13:35 Laboratory Results - last 24 hr 07/04/18 07/04/18 13:35 13:35 WBC 9.56 RBC 3.78 L Hgb 12.1 Hct 36.4 MCV 96.3 H MCH 32.0 MCHC 33.2 RDW 13.2 Plt Count 174 MPV 10.7 Immature Gran % 0.2 Neutrophils % 70.0 Lymphocytes % 17.5 Monocytes % 11.6 Eosinophils % 0.6 Basophils % 0.1 Absolute Neutrophils 6.69 Absolute Lymphocytes 1.67 Absolute Monocytes 1.11 H Absolute Eosinophils 0.06 Absolute Basophils 0.01 Sodium 140 Potassium 3.8 Chloride 104 Carbon Dioxide 24.8 Anion Gap 11.2 H BUN 21 H Creatinine 1.12 H Estimated GFR/1.73 m2 47.82 Glucose 135 H Calcium 8.7 Magnesium 1.9 Total Bilirubin 0.9 AST 14 L ALT 21 Alkaline Phosphatase 92 Troponin I < 0.02 NT-Pro-B Natriuret Pep 1210 H Total Protein 7.2 Albumin 3.3 L
[2018-07-04] MEDS: Atorvastatin 40 MG TAB PO (22:19)
[2018-07-04 22:52] LABS: Troponin I < 0.02 ng/mL (0.00-0.06)
[2018-07-04 23:00] VITALS: PULSE 72
[2018-07-05] VITALS (11 sets, daily range): BP systolic 126–148; BP diastolic 55–89; PULSE 58–68; RESP 1–24; TEMP 35.7–36.9; O2SAT 90–94
[2018-07-05] MEDS: Water,Injection,Bacteriostatic 30 ML VIAL (00:32)
[2018-07-05] MEDS: AZITHROMYCIN 500 MG in Normal Saline 250 ML 250 MG IVPB (00:32)
[2018-07-05] MEDS: methylPREDNISolone SUCC 125 MG VIAL 80 MG IVP ×3 (00:33→15:38)
[2018-07-05] MEDS: Normal Saline Flush 10 ML SYR IVP ×4 (00:33→15:37)
[2018-07-05] MEDS: Furosemide 100 MG/10 ML VIAL 80 MG IVP (02:02)
[2018-07-05 02:38] LABS: Troponin I < 0.02 ng/mL (0.00-0.06)
[2018-07-05 07:11] LABS: Abs Immature Grans 0.01 k/cumm (0.0-0.09); Absolute Lymphocyte Count 0.57 k/cumm (1.2-3.4); Absolute Monocyte Count 0.12 k/cumm (0.11-0.7); HCT 36.8 % (36.0-46.0); HGB 12.1 g/dL (12.0-15.5); Immature Grans % 0.2; Lymphocytes % 8.9; Mean Corp. HGB Concentration 32.9 g/dL (32.0-36.0); Mean Corpuscular Hemoglobin 31.8 pg (27.0-33.0); Mean Corpuscular Volume 96.8 fL (80-95); Mean Platelet Volume 10.8 fL (8.0-11.0); Monocytes % 1.9; Platelet Count 177 x1000/uL (130-400); RBC Distribution Width 13.1 % (11.7-14.6); White Blood Cell Count 6.41 k/cumm (4.4-10.8)
[2018-07-05 07:41] LABS: Anion Gap 13.1 mmol/L (3-11); BUN 26 mg/dL (7-18); CO2 23.9 mmol/L (21.0-32.0); CREATININE 1.63 mg/dL (0.55-1.02); Calcium 8.9 mg/dL (8.5-10.1); Chloride 101 mmol/L (98-107); Estimated GFR 31.01 (mL/min/1.73m2); Magnesium 2.5 mg/dL (1.8-2.4); NT-proBNP 2306 pg/mL; Potassium 3.6 mmol/L (3.5-5.1); Sodium 138 mmol/L (136-145); TSH (W/Ref FT4) 0.65 uIU/mL (0.358-3.74)
[2018-07-05] MEDS: Albuterol/Ipratropium 3 ML UPD VIAL UPD ×3 (07:42→18:15)
[2018-07-05 07:53] LABS: Hemoglobin A1C 6.9 % (4.5-6.2)
[2018-07-05] MEDS: Insulin Aspart 300 UNITS/3 ML PEN SC ×3 (08:02→17:01)
[2018-07-05] MEDS: Bisoprolol 5 MG TAB 10 MG PO (08:03)
[2018-07-05] MEDS: Losartan 50 MG TAB 100 MG PO (08:03)
[2018-07-05] MEDS: metFORMIN 500 MG TAB 1000 MG PO (08:03)
[2018-07-05] MEDS: Aspirin E.C. 81 MG TABEC PO (08:03)
[2018-07-05 08:04] LABS: Glucose 430 mg/dL (70-100)
[2018-07-05] MEDS: Furosemide 40 MG TAB PO ×2 (08:04→15:37)
[2018-07-05] MEDS: Azithromycin 250 MG TAB PO (08:04)
[2018-07-05] MEDS: Spironolactone 25 MG TAB 12.5 MG PO (08:04)
[2018-07-05] MEDS: glipiZIDE 5 MG TAB PO (08:35)
--- NOTE | 2018-07-05 09:25 | PHARADMIT ---
Addendum entered by Kemal Almeida III 07/06/18 16:01: Pharmacy Note Subjective RT & MD reported patient is much improved in AM meeting. Objective VS-OK Lytes,H&H,PLTs-OK SCr-1.44 WBC-11.4 (on steroids) FSBS-296 BG-330 No BM yet Assessment MD to adjust Insulin regimen. Azithromycin PO & Rocephin continue. Plan Awaiting new hospitalist note Original Note: Admission Pharmacy Clinical Review pneumonia, COPD exacerbation Code Status DNR/DNI Current Weight 113 kg Renally Cleared and Narrow Therapeutic Index Meds Crcl ~39.8 mL/min using adjusted body weight -pentoxifylline: 200 mg Q12-24 hours if Crcl 10-50 mL/min (patients own meds, has not been brought in/checked by pharmacy yet) QTc Value / Action Taken BP Control, Fever BP 128/73 afebrile Electrolytes reviewed mag 2.5 DVT Prophylaxis enoxaparin Opiate Usage / Scheduled Bowel Regimen Ordered no/prn Plt/SCr for Heparin / Enoxaparin plt 177 SCr 1.63 INR for Warfarin n/a H/H stable, WBC/Bands h/h 12.1/36.8 wbc 6.41 Antibiotic appropriateness azithromycin and ceftriaxone Cultures and Sensitivities blood cultures pending Surgical ABX d/c within 24 hr n/a DM control / Insulin Dosing BG 430 scheduled detemir and aspart, and sliding scale aspart Heart Failure (Check EF%) (MONICA's, B-Block, Diuretics) bisoprolol, furosemide, losartan, spironolactone IV to PO Switch n/a Home Meds Reviewed -symbicort and advair: should not use more than one long acting beta 2 agonist (increased risk of toxicity) -hydroxyzine and ipratropium: increased risk of anticholinergic side effects/toxicity Home Meds Not Ordered symbicort, cholecalciferol, clotrimazole, advair, hydroxyzine(PRN), ketoconazole, levalbuterol(PRN), omeprazole (PRN/has pantoprazole) ordered, triamcinolone(PRN) Comments sliding scale aspart was increased today, scheduled aspart was added with meals, and an additional dose of detemir was given this morning, watch BG in the morning as MD may adjust insulin regimen more
--- NOTE | 2018-07-05 09:47 | PDOC.CMIN ---
- If Service Date Differs Date of service: 07/05/18 Time of Service: 09:47 Care Management Initial Assess REASON FOR HOSPITALIZATION:: Pneumonia, COPD Exacerbation PAST MEDICAL HISTORY/PAST SURGICAL HISTORY:: Acute on Chronic CHF, COPD, H/O cardiac catheterization, Total hip replacement (R), (L) humeral benign tumor excision, Hypertension, Angina pectoris, Asthma, GERD, Lower extremity edema, Hyperlipidemia, Diabetes mellitus PREVIOUS FUNCTIONAL STATUS/SOCIAL/FAMILY SUPPORTS:: Stacey resides alone in [facility]. 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 Stacey has multiple friends in the community whom are very supportive. Stacey states that she enjoys walking her dog Buttons, she is independent at baseline, and manages ADL's. CURRENT FUNCTIONAL STATUS:: Currently Stacey is sitting up in her chair when this ad writer visits. Stacey is pleasant and receptive to discussion. Stacey states that she would like this ad writer to contact Danuta Paniagua in regards to homemaker services as Stacey is hospitalized. ADVANCE DIRECTIVES:: On file - José oDan is agent Has patient been provided with information about the portal?: Yes Did the patient sign up for the portal?: No CODE STATUS:: DNR/DNI INSURANCE COVERAGE / FINANCIAL ISSUES:: Medicare, Financial ASST 100 CURRENT HOME/COMMUNITY SERVICES/EQUIPMENT:: Currently Stacey receives homemaking services through her [facility] moderate needs her casework specialist is Danuta Paniagua. Stacey has home oxygen through [facility] she states that she is having some difficulty obtaining home oxygen and that [facility] has contacted her in regards to the amount of oxygen she is using at home - RT Lawrence, to follow up with Topher at [facility] in regards to the above. Stacey also has a FWW and uses erin in action. José Doan [facility], is one of her main supports. PRIMARY CARE PHYSICIAN:: Gissel Carbone POTENTIAL DISCHARGE NEEDS:: F/U appointment with PCP. Resume homemaking services through [facility] moderate needs benefit. PATIENT/FAMILY EDUCATION NEEDS:: Review DC instructions, any limitations, and ongoing DC planning discussion. Discuss Ask me Three ANTICIPATED BARRIERS TO DISCHARGE:: None identified at this time. TRANSPORTATION:: ? Via SASH or taxi PLAN:: Stacey will return home with continued [employer] moderate needs homemaking services, as well as [facility] support services. Stacey will resume home oxygen use through [facility]. Either SAS or taxi will transport when ready.
--- NOTE | 2018-07-05 10:41 | INITIAL_ITS ---
- If Service Date Differs Date of service: 07/05/18 Time of Service: 09:47 Care Management Initial Assess REASON FOR HOSPITALIZATION:: Pneumonia, COPD Exacerbation PAST MEDICAL HISTORY/PAST SURGICAL HISTORY:: Acute on Chronic CHF, COPD, H/O cardiac catheterization, Total hip replacement (R), (L) humeral benign tumor excision, Hypertension, Angina pectoris, Asthma, GERD, Lower extremity edema, Hyperlipidemia, Diabetes mellitus PREVIOUS FUNCTIONAL STATUS/SOCIAL/FAMILY SUPPORTS:: Stacey resides alone in [facility]. 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 Stacey has multiple friends in the community whom are very supportive. Stacey states that she enjoys walking her dog Buttons, she is independent at baseline, and manages ADL' s. CURRENT FUNCTIONAL STATUS:: Currently Stacey is sitting up in her chair when this ghost writer visits. Stacey is pleasant and receptive to discussion. Stacey states that she would like this ghost writer to contact Danuta Paniagua in regards to homemaker services as Stacey is hospitalized. ADVANCE DIRECTIVES:: On file - José Doan is agent Has patient been provided with information about the portal?: Yes Did the patient sign up for the portal?: No CODE STATUS:: DNR/DNI INSURANCE COVERAGE / FINANCIAL ISSUES:: Medicare, Financial ASST 100 CURRENT HOME/COMMUNITY SERVICES/EQUIPMENT:: Currently Stacey receives homemaking services through her [facility] moderate needs her pillowcase maker is Danuta Paniagua. Stacey has home oxygen through [facility] she states that she is having some difficulty obtaining home oxygen and that [facility] has contacted her in regards to the amount of oxygen she is using at home - RT Lawrence, to follow up with Topher at [facility] in regards to the above. Stacey also has a FWW and uses erin in action. José Doan [facility], is one of her main supports. PRIMARY CARE PHYSICIAN:: Gissel Carbone POTENTIAL DISCHARGE NEEDS:: F/U appointment with PCP. Resume homemaking services through [facility] moderate needs benefit. PATIENT/FAMILY EDUCATION NEEDS:: Review DC instructions, any limitations, and ongoing DC planning discussion. Discuss Ask me Three ANTICIPATED BARRIERS TO DISCHARGE:: None identified at this time. TRANSPORTATION:: ? Via SASH or taxi PLAN:: Stacey will return home with continued [employer] moderate needs homemaking services, as well as [facility] support services. Stacey will resume home oxygen use through [facility]. Either [employer] or taxi will transport when ready.
--- NOTE | 2018-07-05 11:40 | DM INPTCON_ITS ---
DESCRIPTION/ASSESSMENT: Appreciate diabetes consult for Stacey Buenrostro who is hospitalized with Pneumonia and heart failure now taking prednisolone 80 mg q 8 hours. BLood sugar this AM 411; 225 last evening at admission. SHe manages diabetes with Glipizide, Metformin and detemir 50units. A1c 6.9, lowest it has been in several results. High blood sugars here presumably secondary to steroid administration. Stacey has been offered diabetes self management in the past and has declined. INTERVENTION: Given that Stacey is 73 years old with co-morbidities and blood sugar at goal based on A1c, no self management is offered at this time. However , given her temporary hyperglycemia, her basal insulin dose could be increased. Calculated increase may be as much as 90units/24 hours at dosage of 80mg prednisolone = .8 x weight in kg of 113kg. Suggest initiating NPH insulin to be offered with each steroid administration at 20 units assuming dosing is every 8 hours. PLAN: Will follow blood sugars.
[2018-07-05] MEDS: Insulin Aspart 300 UNITS/3 ML PEN 10 UNITS SC ×2 (11:53→17:01)
[2018-07-05] MEDS: guaiFENesin 600 MG TABCR PO ×2 (12:56→19:45)
--- NOTE | 2018-07-05 13:58 | CHAPLAIN ---
Stacey was sitting up in her chair when I visited. She is bothered by her cough that continues. She said her friends Jazmine (who works at [facility]) and Madison will be later to visit, and are strong supports for her. She has been a patient her before and is comfortable being here.
[2018-07-05] MEDS: Acetaminophen 325 MG TAB PO (15:37)
--- NOTE | 2018-07-05 16:37 | W.PM.PROGNOT ---
Assessment and Plan (1) COPD exacerbation: Current visit: Yes Status: Acute Patient appears quite bronchospastic on exam. Continue high dose IV steroids, antibiotics (Azithromycin, rocephin), nebs, antitussives. Wean oxygen as tolerated (2) Community acquired pneumonia: Current visit: Yes Status: Acute Continue azithromycin, rocephin. Would repeat CXR in 48 hours (3) Pleuritic chest pain: Current visit: Yes Status: Acute ACS ruled out. Ok to discontinue telemetry. (4) Steroid-induced hyperglycemia: Current visit: Yes Status: Acute Increase basal insulin; add scheduled prandial insulin and increase corrective scale. (5) Insulin dependent diabetes mellitus: Current visit: Yes Status: Chronic As above. Diabetes education consulted - and I did observe the patient eating a large portion of mashed potatoes and carrots, as well as drinking an apple juice. (6) Acute on chronic systolic (congestive) heart failure: Current visit: Yes Status: Acute Continue PO lasix (7) Acute and chronic respiratory failure with hypoxia: Current visit: Yes Status: Acute Subjective Interval history since last seen: The patient feels a little less short of breath. Her cough is productive of clear sputum. She gets chest pain every time she coughs. She had not had chest pain she experienced in the ED with nebulizer treatments since that one time. She denies dizziness, nausea, vomiting. She requests home health nursing on discharge. Exam Narrative Exam Narrative: General: Obese female, A&Ox3, coughing and appears uncomfortable every time she does HEENT: EOMI, MMM Heart: RRR, no m/r/g Lungs: Very tight/diminished breath sounds B, poor aearation, very quiet wheezing on expiration 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, +1 edema in BLE's, no clubbing or cyanosis Objective Objective Clinical Data: Abnormal lab results 07/04/18 07/04/18 07/05/18 Range/Units 13:35 13:35 06:40 RBC 3.78 L (4.00-5.20) m/cumm MCV 96.3 H (80-95) fL Absolute Lymphocytes (1.2-3.4) k/cumm Absolute Monocytes 1.11 H (0.11-0.7) k/cumm Anion Gap 11.2 H 13.1 H (3-11) mmol/L BUN 21 H 26 H (7-18) mg/dL Creatinine 1.12 H 1.63 H (0.55-1.02) mg/dL Glucose 135 H 430 H D (70-100) mg/dL Hemoglobin A1c (4.5-6.2) % Magnesium 2.5 H (1.8-2.4) mg/dL AST 14 L (15-37) U/L NT-Pro-B Natriuret Pep 1210 H 2306 H ( - 299) pg/mL Albumin 3.3 L (3.4-5.0) g/dL 07/05/18 07/05/18 Range/Units 06:40 06:40 RBC 3.80 L (4.00-5.20) m/cumm MCV 96.8 H (80-95) fL Absolute Lymphocytes 0.57 L (1.2-3.4) k/cumm Absolute Monocytes (0.11-0.7) k/cumm Anion Gap (3-11) mmol/L BUN (7-18) mg/dL Creatinine (0.55-1.02) mg/dL Glucose (70-100) mg/dL Hemoglobin A1c 6.9 H (4.5-6.2) % Magnesium (1.8-2.4) mg/dL AST (15-37) U/L NT-Pro-B Natriuret Pep ( - 299) pg/mL Albumin (3.4-5.0) g/dL Vital Signs Temperature 36.3 C L 07/05/18 15:53 Temperature Source Tympanic 07/05/18 15:53 Pulse 62 07/05/18 15:53 Pulse Rhythm Regular 07/05/18 08:00 Respiratory Rate 22 07/05/18 15:53 Respiratory Effort Labored 07/05/18 08:00 Respiratory Depth Shallow 07/05/18 08:00 Respiratory Pattern Tachypnea 07/05/18 08:00 Blood Pressure 128/89 07/05/18 15:53 Pulse Oximetry 90 L 07/05/18 15:53 Oxygen Delivery Method Nasal Cannula 07/05/18 15:53 Oxygen Flow Rate 4 07/05/18 15:53 Pain Level 9 07/05/18 15:40 Comment 07/04/18 21:06 Intake & Output 07/04/18 07/05/18 07/05/18 23:59 11:59 23:59 Intake Total 220 / 220 1941 / 1941 650 / 650 Output Total 300 / 300 2350 / 2350 700 / 700 Balance -80 / -80 -409 / -409 -50 / -50 Weight 113 kg 106.2 kg Intake: IV 331 / 331 Oral 220 / 220 1610 / 1610 650 / 650 Output: Urine 300 / 300 2350 / 2350 700 / 700 Other: Urine Color Yellow Yellow Straw Urine Appearance Clear Clear Urine Odor Normal Normal Comment void x 1 missing measuring hat. Voiding Methods Toilet Toilet Laboratory Results WBC 6.41 k/cumm (4.4-10.8) D 07/05/18 06:40 RBC 3.80 m/cumm (4.00-5.20) L 07/05/18 06:40 Hgb 12.1 g/dL (12.0-15.5) 07/05/18 06:40 Hct 36.8 % (36.0-46.0) 07/05/18 06:40 MCV 96.8 fL (80-95) H 07/05/18 06:40 MCH 31.8 pg (27.0-33.0) 07/05/18 06:40 MCHC 32.9 g/dL (32.0-36.0) 07/05/18 06:40 RDW 13.1 % (11.7-14.6) 07/05/18 06:40 Plt Count 177 x1000/uL (130-400) 07/05/18 06:40 MPV 10.8 fL (8.0-11.0) 07/05/18 06:40 Immature Gran % 0.2 07/05/18 06:40 Neutrophils % 89.0 07/05/18 06:40 Lymphocytes % 8.9 07/05/18 06:40 Monocytes % 1.9 07/05/18 06:40 Eosinophils % 0.0 07/05/18 06:40 Basophils % 0.0 07/05/18 06:40 Absolute Neutrophils 5.70 k/cumm (1.2-6.7) 07/05/18 06:40 Absolute Lymphocytes 0.57 k/cumm (1.2-3.4) L 07/05/18 06:40 Absolute Monocytes 0.12 k/cumm (0.11-0.7) 07/05/18 06:40 Absolute Eosinophils 0.00 k/cumm (0.0-0.7) 07/05/18 06:40 Absolute Basophils 0.00 k/cumm (0.0-0.2) 07/05/18 06:40 Sodium 138 mmol/L (136-145) 07/05/18 06:40 Potassium 3.6 mmol/L (3.5-5.1) 07/05/18 06:40 Chloride 101 mmol/L (98-107) 07/05/18 06:40 Carbon Dioxide 23.9 mmol/L (21.0-32.0) 07/05/18 06:40 Anion Gap 13.1 mmol/L (3-11) H 07/05/18 06:40 BUN 26 mg/dL (7-18) H 07/05/18 06:40 Creatinine 1.63 mg/dL (0.55-1.02) H 07/05/18 06:40 Estimated GFR/1.73 m2 31.01 (mL/min/1.73m2) 07/05/18 06:40 Glucose 430 mg/dL (70-100) H D 07/05/18 06:40 Hemoglobin A1c 6.9 % (4.5-6.2) H 07/05/18 06:40 Calcium 8.9 mg/dL (8.5-10.1) 07/05/18 06:40 Magnesium 2.5 mg/dL (1.8-2.4) H 07/05/18 06:40 Total Bilirubin 0.9 mg/dL (0.2-1.0) 07/04/18 13:35 AST 14 U/L (15-37) L 07/04/18 13:35 ALT 21 U/L (12-78) 07/04/18 13:35 Alkaline Phosphatase 92 U/L (46-116) 07/04/18 13:35 Troponin I < 0.02 ng/mL (0.00-0.06) 07/05/18 02:05 NT-Pro-B Natriuret Pep 2306 pg/mL (-299) H 07/05/18 06:40 Total Protein 7.2 g/dL (6.4-8.2) 07/04/18 13:35 Albumin 3.3 g/dL (3.4-5.0) L 07/04/18 13:35 TSH 0.65 uIU/mL (0.358-3.74) 07/05/18 06:40
[2018-07-05] MEDS: Enoxaparin 40 MG/0.4 ML SYR SC (19:46)
[2018-07-05] MEDS: Gabapentin 100 MG CAP PO (21:30)
[2018-07-05] MEDS: Atorvastatin 40 MG TAB PO (21:30)
[2018-07-05] MEDS: Pantoprazole 40 MG TABCR PO (21:30)
[2018-07-06 01:08] VITALS: O2SAT 92
[2018-07-06] MEDS: methylPREDNISolone SUCC 125 MG VIAL 80 MG IVP ×3 (01:42→15:47)
[2018-07-06] MEDS: Normal Saline Flush 10 ML SYR IVP ×4 (01:43→19:24)
[2018-07-06] MEDS: Albuterol/Ipratropium 3 ML UPD VIAL UPD ×3 (06:29→18:14)
[2018-07-06 06:59] VITALS: RESP 20
[2018-07-06 07:07] LABS: Abs Immature Grans 0.02 k/cumm (0.0-0.09); Absolute Monocyte Count 0.36 k/cumm (0.11-0.7); Absolute Neutrophil Count 9.96 k/cumm (1.2-6.7); HCT 34.6 % (36.0-46.0); HGB 11.6 g/dL (12.0-15.5); Immature Grans % 0.2; Lymphocytes % 6.3; Mean Corp. HGB Concentration 33.5 g/dL (32.0-36.0); Mean Corpuscular Hemoglobin 31.8 pg (27.0-33.0); Mean Corpuscular Volume 94.8 fL (80-95); Monocytes % 3.3; Neutrophils % 90.2; Platelet Count 184 x1000/uL (130-400); RBC 3.65 m/cumm (4.00-5.20); RBC Distribution Width 12.7 % (11.7-14.6); White Blood Cell Count 11.04 k/cumm (4.4-10.8)
[2018-07-06 07:15] VITALS: O2SAT 93
[2018-07-06 07:15] LABS: Anion Gap 9.1 mmol/L (3-11); BUN 34 mg/dL (7-18); CO2 26.9 mmol/L (21.0-32.0); CREATININE 1.44 mg/dL (0.55-1.02); Calcium 8.6 mg/dL (8.5-10.1); Chloride 102 mmol/L (98-107); Estimated GFR 35.78 (mL/min/1.73m2); Glucose 330 mg/dL (70-100); Magnesium 2.2 mg/dL (1.8-2.4); Sodium 138 mmol/L (136-145)
[2018-07-06] MEDS: Losartan 50 MG TAB 100 MG PO (08:12)
[2018-07-06] MEDS: glipiZIDE 5 MG TAB PO (08:12)
[2018-07-06] MEDS: metFORMIN 500 MG TAB 1000 MG PO (08:12)
[2018-07-06] MEDS: guaiFENesin 600 MG TABCR PO ×2 (08:12→19:24)
[2018-07-06] MEDS: Spironolactone 25 MG TAB 12.5 MG PO (08:12)
[2018-07-06] MEDS: Aspirin E.C. 81 MG TABEC PO (08:12)
[2018-07-06] MEDS: Bisoprolol 5 MG TAB 10 MG PO (08:12)
[2018-07-06] MEDS: Furosemide 40 MG TAB PO ×2 (08:13→15:47)
[2018-07-06] MEDS: Insulin Aspart 300 UNITS/3 ML PEN 10 UNITS SC (08:13)
[2018-07-06] MEDS: Azithromycin 250 MG TAB PO (08:13)
[2018-07-06] MEDS: Insulin Aspart 300 UNITS/3 ML PEN SC ×3 (08:14→16:38)
--- NOTE | 2018-07-06 10:41 | PDOC.CMPRO ---
- If Service Date Differs Date of service: 07/06/18 Time of Service: 10:41 Care Management Progress Note S/O: Stacey is sitting up in her chair when this typewriter repairer visits this morning. She states that she has a letter from [facility] that she would like this typewriter repairer to look at, and that she has a friend bringing it in. LOLIS discussed home health services at time of DC, she would like to have Tanya Ferguson as her RN which CM has notified JULIA Galvez, of. LOLIS also discussed the better breathing program through home health and Stacey states that she is not interested in this. A: 73 y/o female admitted 07/04/18 for pneumonia, COPD Exacerbation. P: Stacey will return home with new home health RN services, she will require a F2F. Stacey will F/U with PCP and plan of care as prescribed. She has a friend that will transport her when ready.
--- NOTE | 2018-07-06 10:55 | CMPROGNOTE_ITS ---
- If Service Date Differs Date of service: 07/06/18 Time of Service: 10:41 Care Management Progress Note S/O: Stacey is sitting up in her chair when this internal communications writer visits this morning. She states that she has a letter from [facility] that she would like this internal communications writer to look at, and that she has a friend bringing it in. LOLIS discussed home health services at time of DC, she would like to have Tanya Ferguson as her RN which CM has notified JULIA Galvez, of. LOLIS also discussed the better breathing program through home health and Stacey states that she is not interested in this. A: 73 y/o female admitted 07/04/18 for pneumonia, COPD Exacerbation. P: Stacey will return home with new home health RN services, she will require a F2F. Stacey will F/U with PCP and plan of care as prescribed. She has a friend that will transport her when ready.
[2018-07-06] MEDS: Insulin Aspart 300 UNITS/3 ML PEN 15 UNITS SC ×2 (12:35→16:39)
[2018-07-06 13:39] VITALS: BP 151/53; PULSE 72; RESP 22; TEMP 36.3; O2SAT 94
[2018-07-06 18:44] VITALS: RESP 8
--- NOTE | 2018-07-06 19:20 | PGE_ITS ---
Assessment and Plan (1) COPD exacerbation: Current visit: Yes Status: Acute Improving. Start to lower steroids. Continue antibiotics, nebs, antitussives. Add symbicort. (2) Community acquired pneumonia: Current visit: Yes Status: Acute Continue azithromycin, rocephin. Repeat CXR tomorrow. (3) Pleuritic chest pain: Current visit: Yes Status: Acute Seems to have resolved. (4) Steroid-induced hyperglycemia: Current visit: Yes Status: Acute Much better today. Basal insulin was increased this am. (5) Insulin dependent diabetes mellitus: Current visit: Yes Status: Chronic As above. Diabetes education consulted (6) Acute on chronic systolic (congestive) heart failure: Current visit: Yes Status: Acute Continue PO lasix (7) Acute and chronic respiratory failure with hypoxia: Current visit: Yes Status: Acute Clinically getting better. Assess ambulatory pulse ox in am. Subjective Interval history since last seen: Ms Buenrostro states she feels better, but not yet back to normal. Cough medicine is not helping. She denies any dizziness, chest pain, nausea, vomiting. She would like to go home today, but recognizes that she still gets very short of breath with ambulation. Exam Narrative Exam Narrative: General: Obese female, A&Ox3, coughing, looks better HEENT: EOMI, MMM Heart: RRR, no m/r/g Lungs: improved aeration bilaterally; it is better on the right than on the left ; quiet wheezing on expiration bilaterally. 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, +1 edema in BLE's, no clubbing or cyanosis Objective Objective Clinical Data: Abnormal lab results 07/06/18 07/06/18 Range/Units 06:25 06:25 WBC 11.04 H D (4.4-10.8) k/cumm RBC 3.65 L (4.00-5.20) m/cumm Hgb 11.6 L (12.0-15.5) g/dL Hct 34.6 L (36.0-46.0) % Absolute Neutrophils 9.96 H (1.2-6.7) k/cumm Absolute Lymphocytes 0.70 L (1.2-3.4) k/cumm BUN 34 H (7-18) mg/dL Creatinine 1.44 H (0.55-1.02) mg/dL Glucose 330 H D (70-100) mg/dL Vital Signs Temperature 36.3 C L 07/06/18 13:39 Temperature Source Tympanic 07/06/18 13:39 Pulse 72 07/06/18 13:39 Pulse Rhythm Regular 07/06/18 16:38 Respiratory Rate 22 07/06/18 13:39 Respiratory Effort 07/06/18 16:38 Respiratory Depth Shallow 07/06/18 16:38 Respiratory Pattern Tachypnea 07/05/18 08:00 Blood Pressure 151/53 H 07/06/18 13:39 Pulse Oximetry 94 L 07/06/18 13:39 Oxygen Delivery Method Nasal Cannula 07/06/18 13:39 Oxygen Flow Rate 3 07/06/18 13:39 Pain Level 0 07/06/18 13:39 Comment 07/04/18 21:06 Intake & Output 07/05/18 07/06/18 07/06/18 23:59 11:59 23:59 Intake Total 1180 / 1180 260 / 260 490 / 490 Output Total 1450 / 1450 1100 / 1100 2200 / 2200 Balance -270 / -270 -840 / -840 -1710 / -1710 Weight 108.3 kg Intake: IV 50 / 50 20 Oral 1130 / 1130 240 / 240 480 / 480 Output: Urine 1450 / 1450 1100 / 1100 2200 / 2200 Other: Urine Color Yellow Yellow Yellow Urine Appearance Clear Clear Clear Urine Odor Normal Normal Voiding Methods Toilet Toilet Toilet Laboratory Results WBC 11.04 k/cumm (4.4-10.8) H D 07/06/18 06:25 RBC 3.65 m/cumm (4.00-5.20) L 07/06/18 06:25 Hgb 11.6 g/dL (12.0-15.5) L 07/06/18 06:25 Hct 34.6 % (36.0-46.0) L 07/06/18 06:25 MCV 94.8 fL (80-95) 07/06/18 06:25 MCH 31.8 pg (27.0-33.0) 07/06/18 06:25 MCHC 33.5 g/dL (32.0-36.0) 07/06/18 06:25 RDW 12.7 % (11.7-14.6) 07/06/18 06:25 Plt Count 184 x1000/uL (130-400) 07/06/18 06:25 MPV 11.0 fL (8.0-11.0) 07/06/18 06:25 Immature Gran % 0.2 07/06/18 06:25 Neutrophils % 90.2 07/06/18 06:25 Lymphocytes % 6.3 07/06/18 06:25 Monocytes % 3.3 07/06/18 06:25 Eosinophils % 0.0 07/06/18 06:25 Basophils % 0.0 07/06/18 06:25 Absolute Neutrophils 9.96 k/cumm (1.2-6.7) H 07/06/18 06:25 Absolute Lymphocytes 0.70 k/cumm (1.2-3.4) L 07/06/18 06:25 Absolute Monocytes 0.36 k/cumm (0.11-0.7) 07/06/18 06:25 Absolute Eosinophils 0.00 k/cumm (0.0-0.7) 07/06/18 06:25 Absolute Basophils 0.00 k/cumm (0.0-0.2) 07/06/18 06:25 Sodium 138 mmol/L (136-145) 07/06/18 06:25 Potassium 4.0 mmol/L (3.5-5.1) 07/06/18 06:25 Chloride 102 mmol/L (98-107) 07/06/18 06:25 Carbon Dioxide 26.9 mmol/L (21.0-32.0) 07/06/18 06:25 Anion Gap 9.1 mmol/L (3-11) 07/06/18 06:25 BUN 34 mg/dL (7-18) H 07/06/18 06:25 Creatinine 1.44 mg/dL (0.55-1.02) H 07/06/18 06:25 Estimated GFR/1.73 m2 35.78 (mL/min/1.73m2) 07/06/18 06:25 Glucose 330 mg/dL (70-100) H D 07/06/18 06:25 Hemoglobin A1c 6.9 % (4.5-6.2) H 07/05/18 06:40 Calcium 8.6 mg/dL (8.5-10.1) 07/06/18 06:25 Magnesium 2.2 mg/dL (1.8-2.4) 07/06/18 06:25 Total Bilirubin 0.9 mg/dL (0.2-1.0) 07/04/18 13:35 AST 14 U/L (15-37) L 07/04/18 13:35 ALT 21 U/L (12-78) 07/04/18 13:35 Alkaline Phosphatase 92 U/L (46-116) 07/04/18 13:35 Troponin I < 0.02 ng/mL (0.00-0.06) 07/05/18 02:05 NT-Pro-B Natriuret Pep 2306 pg/mL (-299) H 07/05/18 06:40 Total Protein 7.2 g/dL (6.4-8.2) 07/04/18 13:35 Albumin 3.3 g/dL (3.4-5.0) L 07/04/18 13:35 TSH 0.65 uIU/mL (0.358-3.74) 07/05/18 06:40
[2018-07-06] MEDS: Enoxaparin 40 MG/0.4 ML SYR SC (19:24)
[2018-07-06 19:50] VITALS: BP 106/60; PULSE 70; RESP 20; TEMP 36.2; O2SAT 93
[2018-07-06] MEDS: Atorvastatin 40 MG TAB PO (21:38)
[2018-07-06] MEDS: Pantoprazole 40 MG TABCR PO (21:38)
[2018-07-06] MEDS: Gabapentin 100 MG CAP PO (21:38)
[2018-07-06] MEDS: Budesonide/Formoterol 160/4.5 6 GM 60 PUFF INH IH (22:29)
[2018-07-07] MEDS: methylPREDNISolone SUCC 125 MG VIAL 60 MG IVP ×2 (00:41→08:27)
[2018-07-07] MEDS: Normal Saline Flush 10 ML SYR IVP ×3 (00:42→20:46)
[2018-07-07 07:20] VITALS: BP 150/58; PULSE 57; RESP 19; TEMP 37.2; O2SAT 95
[2018-07-07 07:27] LABS: Abs Immature Grans 0.02 k/cumm (0.0-0.09); Absolute Lymphocyte Count 0.69 k/cumm (1.2-3.4); Absolute Monocyte Count 0.31 k/cumm (0.11-0.7); Absolute Neutrophil Count 7.98 k/cumm (1.2-6.7); HCT 34.7 % (36.0-46.0); HGB 11.5 g/dL (12.0-15.5); Immature Grans % 0.2; Lymphocytes % 7.7; Mean Corp. HGB Concentration 33.1 g/dL (32.0-36.0); Mean Corpuscular Hemoglobin 31.9 pg (27.0-33.0); Mean Corpuscular Volume 96.1 fL (80-95); Mean Platelet Volume 10.6 fL (8.0-11.0); Monocytes % 3.4; Neutrophils % 88.7; Platelet Count 192 x1000/uL (130-400); RBC 3.61 m/cumm (4.00-5.20); RBC Distribution Width 12.9 % (11.7-14.6)
[2018-07-07 07:33] LABS: Anion Gap 8.6 mmol/L (3-11); BUN 36 mg/dL (7-18); CO2 27.4 mmol/L (21.0-32.0); CREATININE 1.25 mg/dL (0.55-1.02); Calcium 8.5 mg/dL (8.5-10.1); Chloride 104 mmol/L (98-107); Estimated GFR 42.13 (mL/min/1.73m2); Glucose 184 mg/dL (70-100); Magnesium 2.2 mg/dL (1.8-2.4); Potassium 3.8 mmol/L (3.5-5.1); Sodium 140 mmol/L (136-145)
[2018-07-07 07:35] VITALS: O2SAT 95
[2018-07-07] MEDS: Budesonide/Formoterol 160/4.5 6 GM 60 PUFF INH IH ×2 (07:43→20:44)
[2018-07-07] MEDS: Bisoprolol 5 MG TAB 10 MG PO (08:27)
[2018-07-07] MEDS: Losartan 50 MG TAB 100 MG PO (08:27)
[2018-07-07] MEDS: Aspirin E.C. 81 MG TABEC PO (08:27)
[2018-07-07] MEDS: guaiFENesin 600 MG TABCR PO ×2 (08:27→20:45)
[2018-07-07] MEDS: metFORMIN 500 MG TAB 1000 MG PO (08:27)
[2018-07-07] MEDS: Furosemide 40 MG TAB PO ×2 (08:28→17:24)
[2018-07-07] MEDS: Insulin Aspart 300 UNITS/3 ML PEN SC (08:28)
[2018-07-07] MEDS: Spironolactone 25 MG TAB 12.5 MG PO (08:28)
[2018-07-07] MEDS: Insulin Aspart 300 UNITS/3 ML PEN 15 UNITS SC ×3 (08:28→17:31)
[2018-07-07] MEDS: glipiZIDE 5 MG TAB PO (08:28)
[2018-07-07] MEDS: Azithromycin 250 MG TAB PO (09:20)
[2018-07-07 10:30] VITALS: PULSE 78; PULSE 82; RESP 24; O2SAT 81; O2SAT 93
[2018-07-07] MEDS: Albuterol/Ipratropium 3 ML UPD VIAL UPD ×2 (12:49→17:24)
--- NOTE | 2018-07-07 16:11 | CMPROGNOTE_ITS ---
- If Service Date Differs Date of service: 07/07/18 Time of Service: 16:10 Care Management Progress Note S/O:Stacey is sitting up in her chair visiting with friends this afternoon when this insurance writer visits. Per Stacey may require an increase in home oxygen at time of DC, therefore will require qualification with RT tomorrow. DC plan remains unchanged at this time. A: 73 y/o female admitted 07/04/18 for pneumonia, COPD Exacerbation. P: Stacey will return home with new home health RN services, she will require a F2F. Stacey will F/U with PCP and plan of care as prescribed. She has a friend that will transport her when ready.
[2018-07-07 16:45] VITALS: BP 119/49; PULSE 64; TEMP 35.8; O2SAT 95
[2018-07-07 17:24] VITALS: O2SAT 92
--- NOTE | 2018-07-07 17:25 | W.PM.PROGNOT ---
Assessment and Plan (1) COPD exacerbation: Current visit: Yes Status: Acute Continues to improve. Would like to go home tomorrow on symbicort rather than advair - thinks it works better. Change steroids to PO with anticipation of discharge home tomorrow. Ambulate with pulse ox prior. (2) Community acquired pneumonia: Current visit: Yes Status: Acute Continue azithromycin, rocephin. Repeat CXR pending. (3) Pleuritic chest pain: Current visit: Yes Status: Acute Resolved. No further w/u. (4) Steroid-induced hyperglycemia: Current visit: Yes Status: Acute Decreasing basal insulin. (5) Insulin dependent diabetes mellitus: Current visit: Yes Status: Chronic As above (6) Acute on chronic systolic (congestive) heart failure: Current visit: Yes Status: Acute Euvolemic - continue PO diuresis (7) Acute and chronic respiratory failure with hypoxia: Current visit: Yes Status: Acute Ambulate patient w/ pulse ox in am Subjective Interval history since last seen: Feels much better today - however, desaturated quite a bit when she walked on 4 L - 81%. She thinks she will be ready to go home tomorrow. She denies any dizziness, chest pain, shortness of breath, nausea, vomiting. 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, +1 edema in BLE's, no clubbing or cyanosis Objective Objective Clinical Data: Abnormal lab results 07/07/18 07/07/18 Range/Units 07:00 07:00 RBC 3.61 L (4.00-5.20) m/cumm Hgb 11.5 L (12.0-15.5) g/dL Hct 34.7 L (36.0-46.0) % MCV 96.1 H (80-95) fL Absolute Neutrophils 7.98 H (1.2-6.7) k/cumm Absolute Lymphocytes 0.69 L (1.2-3.4) k/cumm BUN 36 H (7-18) mg/dL Creatinine 1.25 H (0.55-1.02) mg/dL Glucose 184 H D (70-100) mg/dL Vital Signs Temperature 35.8 C L 07/07/18 16:45 Temperature Source Tympanic 07/07/18 16:45 Pulse 64 07/07/18 16:45 Pulse Rhythm Regular 07/07/18 08:11 Respiratory Rate 19 07/07/18 07:20 Respiratory Effort 07/07/18 08:11 Respiratory Depth Shallow 07/07/18 08:11 Respiratory Pattern Normal 07/07/18 08:11 Blood Pressure 119/49 L 07/07/18 16:45 Pulse Oximetry 95 07/07/18 16:45 Oxygen Delivery Method Nasal Cannula 07/07/18 16:45 Oxygen Flow Rate 3 07/07/18 16:45 Pain Level 0 07/06/18 21:58 Comment 07/04/18 21:06 Intake & Output 07/06/18 07/07/18 07/07/18 23:59 11:59 23:59 Intake Total 990 / 990 810 / 810 480 / 480 Output Total 2900 / 2900 900 / 900 1100 / 1100 Balance -1910 / -1910 -90 / -90 -620 / -620 Weight 108.3 kg Intake: IV 60 / 60 20 / 20 Oral 930 / 930 790 / 790 480 / 480 Output: Urine 2900 / 2900 900 / 900 1100 / 1100 Other: Urine Color Yellow Yellow Yellow Urine Appearance Clear Clear Clear Urine Odor Normal Normal None Stool Size Moderate Stool Characteristics Soft Voiding Methods Toilet Toilet Toilet Laboratory Results WBC 9.00 k/cumm (4.4-10.8) 07/07/18 07:00 RBC 3.61 m/cumm (4.00-5.20) L 07/07/18 07:00 Hgb 11.5 g/dL (12.0-15.5) L 07/07/18 07:00 Hct 34.7 % (36.0-46.0) L 07/07/18 07:00 MCV 96.1 fL (80-95) H 07/07/18 07:00 MCH 31.9 pg (27.0-33.0) 07/07/18 07:00 MCHC 33.1 g/dL (32.0-36.0) 07/07/18 07:00 RDW 12.9 % (11.7-14.6) 07/07/18 07:00 Plt Count 192 x1000/uL (130-400) 07/07/18 07:00 MPV 10.6 fL (8.0-11.0) 07/07/18 07:00 Immature Gran % 0.2 07/07/18 07:00 Neutrophils % 88.7 07/07/18 07:00 Lymphocytes % 7.7 07/07/18 07:00 Monocytes % 3.4 07/07/18 07:00 Eosinophils % 0.0 07/07/18 07:00 Basophils % 0.0 07/07/18 07:00 Absolute Neutrophils 7.98 k/cumm (1.2-6.7) H 07/07/18 07:00 Absolute Lymphocytes 0.69 k/cumm (1.2-3.4) L 07/07/18 07:00 Absolute Monocytes 0.31 k/cumm (0.11-0.7) 07/07/18 07:00 Absolute Eosinophils 0.00 k/cumm (0.0-0.7) 07/07/18 07:00 Absolute Basophils 0.00 k/cumm (0.0-0.2) 07/07/18 07:00 Sodium 140 mmol/L (136-145) 07/07/18 07:00 Potassium 3.8 mmol/L (3.5-5.1) 07/07/18 07:00 Chloride 104 mmol/L (98-107) 07/07/18 07:00 Carbon Dioxide 27.4 mmol/L (21.0-32.0) 07/07/18 07:00 Anion Gap 8.6 mmol/L (3-11) 07/07/18 07:00 BUN 36 mg/dL (7-18) H 07/07/18 07:00 Creatinine 1.25 mg/dL (0.55-1.02) H 07/07/18 07:00 Estimated GFR/1.73 m2 42.13 (mL/min/1.73m2) 07/07/18 07:00 Glucose 184 mg/dL (70-100) H D 07/07/18 07:00 Hemoglobin A1c 6.9 % (4.5-6.2) H 07/05/18 06:40 Calcium 8.5 mg/dL (8.5-10.1) 07/07/18 07:00 Magnesium 2.2 mg/dL (1.8-2.4) 07/07/18 07:00 Total Bilirubin 0.9 mg/dL (0.2-1.0) 07/04/18 13:35 AST 14 U/L (15-37) L 07/04/18 13:35 ALT 21 U/L (12-78) 07/04/18 13:35 Alkaline Phosphatase 92 U/L (46-116) 07/04/18 13:35 Troponin I < 0.02 ng/mL (0.00-0.06) 07/05/18 02:05 NT-Pro-B Natriuret Pep 2306 pg/mL (-299) H 07/05/18 06:40 Total Protein 7.2 g/dL (6.4-8.2) 07/04/18 13:35 Albumin 3.3 g/dL (3.4-5.0) L 07/04/18 13:35 TSH 0.65 uIU/mL (0.358-3.74) 07/05/18 06:40
--- NOTE | 2018-07-07 18:47 | DI.RAD_ITS ---
SYMPTOM/DIAGNOSIS: F/U PNEUMONIA PORTABLE AP CHEST: Comparison is made with 07/04/18. The heart size is at the upper limits of normal. There has been some interval clearing of previously noted bilateral pulmonary densities. The lung bases are not optimally penetrated. There is a question of tiny bilateral pleural effusions. IMPRESSION: Improvement in bilateral infiltrates.
--- NOTE | 2018-07-07 19:38 | DI.VRAD_ITS ---
EXAM: XR Chest, 1 View CLINICAL HISTORY: 73 years old, female; Pain; Chest pain; On breathing; Patient HX: F/u pna TECHNIQUE: Frontal view of the chest. COMPARISON: SC XR PORTABLE CHEST AP 07/04/2018 6:12 PM FINDINGS: Lungs: Interval improved aeration in right lower lobe. Residual right lower lobe parenchymal disease again seen consistent with residual infiltrate. Mild improved aeration in left lung base is present. Remainder of the lungs are clear. Pleural space: Unremarkable. No pneumothorax. Heart: Unremarkable. No cardiomegaly. Mediastinum: Unremarkable. Bones/joints: Unremarkable. IMPRESSION: 1. Interval improved aeration in right lower lobe. Residual right lower lobe parenchymal disease again seen consistent with residual infiltrate. 2. Mild improved aeration in left lung base is present. Dictated and Authenticated by: Wilman Arizmendi MD. Ordering:INDERJIT URIBE MD
[2018-07-07] MEDS: predniSONE 20 MG TAB 60 MG PO (20:41)
[2018-07-07] MEDS: Enoxaparin 40 MG/0.4 ML SYR SC (20:44)
[2018-07-07 21:21] VITALS: BP 121/54; PULSE 62; RESP 18; TEMP 36.4; O2SAT 92
[2018-07-07] MEDS: Atorvastatin 40 MG TAB PO (21:48)
[2018-07-07] MEDS: Gabapentin 100 MG CAP PO (21:48)
[2018-07-07] MEDS: Pantoprazole 40 MG TABCR PO (21:48)
[2018-07-08 00:05] VITALS: RESP 19
[2018-07-08] MEDS: Albuterol/Ipratropium 3 ML UPD VIAL UPD ×3 (00:05→12:00)
[2018-07-08 00:27] VITALS: O2SAT 92
[2018-07-08 06:00] VITALS: RESP 19
[2018-07-08 07:10] VITALS: O2SAT 85
[2018-07-08 07:20] VITALS: O2SAT 92
[2018-07-08] MEDS: Budesonide/Formoterol 160/4.5 6 GM 60 PUFF INH IH (07:21)
[2018-07-08 07:30] VITALS: BP 125/52; PULSE 70; RESP 20; TEMP 36; O2SAT 91
[2018-07-08] MEDS: Losartan 50 MG TAB 100 MG PO (08:22)
[2018-07-08] MEDS: Spironolactone 25 MG TAB 12.5 MG PO (08:22)
[2018-07-08] MEDS: Bisoprolol 5 MG TAB 10 MG PO (08:22)
[2018-07-08] MEDS: metFORMIN 500 MG TAB 1000 MG PO (08:22)
[2018-07-08] MEDS: Insulin Aspart 300 UNITS/3 ML PEN SC ×2 (08:23→12:12)
[2018-07-08] MEDS: guaiFENesin 600 MG TABCR PO (08:23)
[2018-07-08] MEDS: Azithromycin 250 MG TAB PO (08:23)
[2018-07-08] MEDS: Furosemide 40 MG TAB PO (08:23)
[2018-07-08] MEDS: predniSONE 20 MG TAB 60 MG PO (08:23)
[2018-07-08] MEDS: glipiZIDE 5 MG TAB PO (08:23)
[2018-07-08] MEDS: Aspirin E.C. 81 MG TABEC PO (08:23)
[2018-07-08] MEDS: Insulin Aspart 300 UNITS/3 ML PEN 15 UNITS SC ×2 (08:23→12:12)
--- NOTE | 2018-07-08 11:48 | W.PM.DS.N ---
Date of service: 07/08/18 Time of Service: 11:52 DS: Diagnosis Discharge Diagnosis (1) COPD exacerbation: Status: Acute (2) Community acquired pneumonia: Status: Acute (3) Pleuritic chest pain: Status: Acute (4) Steroid-induced hyperglycemia: Status: Acute (5) Insulin dependent diabetes mellitus: Status: Chronic (6) Acute on chronic systolic (congestive) heart failure: Status: Acute (7) Acute and chronic respiratory failure with hypoxia: Status: Acute Discharge Plan Disposition Patient Disposition: HOME W/HOME HEALTH SERVICE Condition: Improving Discharge Details Reason For Visit: PNEUMONIA, COPD EXACERBATION Admit Date/Time: 07/04/18 19:30 Admit Provider: Nithin De Leon Attending Provider: Nithin De Leon Primary Care Provider: Gissel Carbone Hospital Course Hospital Course: Ms Stacey Buenrostro is a 73 year old female with PMHx of Oxygen-dependent COPD, chronic hypoxic respiratory failure, previously on 2-3 L of O2 by [place], as well as chronic systolic CHF due to dilated [employer] with EF of 40% who was admitted to [facility] on 07/04/18 for an exacerbation of her COPD due to a community acquired pneumonia with worsening of her oxygen requirement. The patient completed a 5 day course of antibiotics, improved significantly with systemic steroids, symbicort therapy as well as nebulizer treatments. She was continued on her diuresis and at this time is euvolemic. Her ambulatory pulse ox measurements, however, indicate that she requires 3 L of oxygen at rest and 6L with ambulation. Otherwise, clinically, she is nearly at her baseline. She will be going home with a slow steroid taper. Her oxygen supply company is being notified of changes to her prescription. The patient is going home with home health nursing. Home Meds and New Rx's Prescriptions: New prednisone 20 mg Tablet 20 - 40 mg PO DIRECTED Qty: 14 RF: 0 budesonide-formoterol [Symbicort] 160-4.5 mcg/actuation Hfa Aerosol Inhaler 2 puff Inhalation BID Qty: 1 RF: 0 Continue levalbuterol tartrate [Xopenex HFA] 15 GM HFA aerosol inhaler 45 mcg Inhalation Q4H PRN Qty: 1 RF: 0 bisoprolol fumarate 5 MG tablet 10 mg PO DAILY Qty: 60 RF: 11 atorvastatin 40 MG tablet 40 mg PO DAILY Qty: 30 RF: 11 spironolactone 25 MG tablet 12.5 mg PO DAILY Qty: 30 RF: 11 aspirin [Aspir-81] 81 MG tablet,delayed release (DR/EC) 81 mg PO DAILY RF: 0 triamcinolone acetonide 5 GM paste 1 applic Topical PRN PRNRF: 0 nitroglycerin [Nitrostat] 0.4 MG tablet, sublingual 0.4 mg PO PRN PRNRF: 0 omeprazole [Prilosec] 20 MG capsule,delayed release(DR/EC) 20 mg PO DAILY PRNRF: 0 losartan 100 MG tablet 100 mg PO DAILY RF: 0 hydroxyzine pamoate [Vistaril] 25 MG capsule 25 mg PO DAILY PRNRF: 0 cholecalciferol (vitamin D3) [Vitamin D3] 2,000 UNIT capsule 2,000 unit PO DAILY RF: 0 ketoconazole 30 GM cream 60 gm Topical BID Qty: 1 RF: 0 acetaminophen 650 MG tablet extended release 650 mg PO Q4H PRN (Reason: Pain) Qty: 30 RF: 0 ipratropium-albuterol 3 ML solution for nebulization 3 ml Inhalation Q6H PRN PRNRF: 0 benzonatate 100 MG capsule 100 mg PO TID PRN PRNRF: 0 metformin 1,000 MG tablet 1,000 mg PO DAILY RF: 0 gabapentin 100 MG capsule 100 mg PO HS RF: 0 clotrimazole 15 GM cream 1 applic Topical TID RF: 0 glipizide 5 MG tablet 5 mg PO DAILY RF: 0 Pentoxifylline 400 MG Tablet.Er 400 mg PO TID RF: 0 furosemide 40 MG tablet 40 mg PO BID DIURETIC RF: 0 Changed insulin detemir U-100 [Levemir U-100 Insulin] 100 UNIT/ML solution 60 unit subcut QPM Qty: 10 RF: 0 Discontinued Fluticasone/Salmeterol [Advair 500-50 Diskus] 1 EACH Blst.W.Dev 1 ea Inhalation BID RF: 0 budesonide-formoterol [Symbicort] 60 PUFF HFA aerosol inhaler 2 puff Inhalation BID RF: 0 Discharge Instructions Instructions: Prednisone (By mouth), Using Oxygen at Home (DC), COPD (Chronic Obstructive Pulmonary Disease) (DC) Additional Instructions: Home health Nursing. Return to the hospital with any fever, bleeding, chest pain, or shortness of breath. Use 3L of oxygen at rest and 6 L with activity. Stand Alone Forms: Nursing Discharge Form Referrals: Rosemary Chapman MD [ NON-[facility] STAFF PHYSICIAN] - (Sunday 08/12 at 10:30 am) Gissel Carbone [Primary Care Provider] - 07/11/18 1:00 pm Activity:: Activity as Tolerated Equipment/Supplies:: No Equipment Needed Diet:: Cardiac Diabetic Discharge Orders Discharge Orders: Discharge Order (Routine); Ordered 07/08/18 Ordered By: Noemi Fallon 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, +1 edema in BLE's, no clubbing or cyanosis DS: Data Vitals/I&O Vitals and I&O: Vital Signs Temperature 36.0 C L 07/08/18 07:30 Temperature Source Tympanic 07/08/18 07:30 Pulse 70 07/08/18 07:30 Pulse Rhythm Regular 07/08/18 08:42 Respiratory Rate 20 07/08/18 07:30 Respiratory Effort Non-Labored 07/08/18 08:42 Respiratory Depth Normal 07/08/18 08:42 Respiratory Pattern Normal 07/08/18 08:42 Blood Pressure 125/52 L 07/08/18 07:30 Pulse Oximetry 91 L 07/08/18 07:30 Oxygen Delivery Method Room Air 07/08/18 07:30 Oxygen Flow Rate 0 07/08/18 07:30 Fraction of Inspired Oxygen (FIO2) 3 07/08/18 07:30 Pain Level 0 07/08/18 07:30 Comment 07/08/18 07:30 Intake & Output 07/07/18 07/07/18 07/08/18 11:59 23:59 11:59 Intake Total 810 / 810 1040 / 1040 575 / 575 Output Total 900 / 900 1800 / 1800 2550 / 2550 Balance - / -90 - / - -1974 / Weight 106.7 kg Intake: IV 50 / 50 Oral 790 / 790 990 / 990 575 / 575 Output: Urine 900 / 900 1800 / 1800 2550 / 2550 Other: Urine Color Yellow Yellow Yellow Urine Appearance Clear Clear Clear Urine Odor Normal None Strong Comment pt voided x2 Stool Size Moderate Stool Characteristics Soft Voiding Methods Toilet Toilet Toilet Completed studies during hospitalization [Text1]: CXR 07/08/18: Improvement in bilateral infiltrates. CXR 07/04/18: Bilateral pulmonary infiltrates suspicious for pneumonia. Labs on day of discharge: Preliminary micro results at discharge 07/07/18 04:40 Sputum Culture - Preliminary Sputum Normal Erika 07/04/18 20:10 Blood Culture - Preliminary Blood NO GROWTH 72 HOURS 07/04/18 19:50 Blood Culture - Preliminary Blood NO GROWTH 72 HOURS
--- NOTE | 2018-07-08 11:48 | PDOC.CMDIS ---
- If Service Date Differs Date of service: 07/08/18 Time of Service: 11:49 LACE Index Scoring Tool - Questions: Length of Stay (in days): 4 - 6 Acuity (Admit via E.D.?): Yes Comorbidities: Diabetes w/o Complication, Congestive Heart Failure, Chronic Pulmonary Disease E.D. Visits: 4 - Answers: Total Score: 16 Risk of Readmission: High Risk Care Management Discharge Reason for Hospitalization: Pneumonia, COPD Exacerbation Discharge Plan: Stacey will return home today with new home health RN services. She will require an increase in her home oxygen, therefore RT Lawrence, is assisting with this at this time. Stacey will have continued CFC moderate needs, CM has left a VM for her CM [place]. Stacey states that either a friend will transport or she will go via taxi. CM has also left a VM at [facility] to discuss whether Stacey has a concentrator at home or not. Patient/Family Education Needs: Review DC instructions, any limitations, and discuss Ask Me Three Services Needed at Discharge: Home Health Care Services (RN), Homemaking Services ([facility] Moderate Needs), Oxygen Therapy ([facility])
--- NOTE | 2018-07-08 11:53 | DSE_ITS ---
Date of service: 07/08/18 Time of Service: 11:52 DS: Diagnosis Discharge Diagnosis (1) COPD exacerbation: Status: Acute (2) Community acquired pneumonia: Status: Acute (3) Pleuritic chest pain: Status: Acute (4) Steroid-induced hyperglycemia: Status: Acute (5) Insulin dependent diabetes mellitus: Status: Chronic (6) Acute on chronic systolic (congestive) heart failure: Status: Acute (7) Acute and chronic respiratory failure with hypoxia: Status: Acute Discharge Plan Disposition Patient Disposition: HOME W/HOME HEALTH SERVICE Condition: Improving Discharge Details Reason For Visit: PNEUMONIA, COPD EXACERBATION Admit Date/Time: 07/04/18 19:30 Admit Provider: Nithin De Leon Attending Provider: Nithin De Leon Primary Care Provider: Gissel Carbone Hospital Course Hospital Course: Ms Stacey Buenrostro is a 73 year old female with PMHx of Oxygen-dependent COPD, chronic hypoxic respiratory failure, previously on 2-3 L of O2 by [place], as well as chronic systolic CHF due to dilated MEAT GRINDER with EF of 40% who was admitted to [facility] on 07/04/18 for an exacerbation of her COPD due to a community acquired pneumonia with worsening of her oxygen requirement. The patient completed a 5 day course of antibiotics, improved significantly with systemic steroids, symbicort therapy as well as nebulizer treatments. She was continued on her diuresis and at this time is euvolemic. Her ambulatory pulse ox measurements, however, indicate that she requires 3 L of oxygen at rest and 6L with ambulation. Otherwise, clinically, she is nearly at her baseline. She will be going home with a slow steroid taper. Her oxygen supply company is being notified of changes to her prescription. The patient is going home with home health nursing. Home Meds and New Rx's Prescriptions: New prednisone 20 mg Tablet 20 - 40 mg PO DIRECTED Qty: 14 RF: 0 budesonide-formoterol [Symbicort] 160-4.5 mcg/actuation Hfa Aerosol Inhaler 2 puff Inhalation BID Qty: 1 RF: 0 Continue levalbuterol tartrate [Xopenex HFA] 15 GM HFA aerosol inhaler 45 mcg Inhalation Q4H PRN Qty: 1 RF: 0 bisoprolol fumarate 5 MG tablet 10 mg PO DAILY Qty: 60 RF: 11 atorvastatin 40 MG tablet 40 mg PO DAILY Qty: 30 RF: 11 spironolactone 25 MG tablet 12.5 mg PO DAILY Qty: 30 RF: 11 aspirin [Aspir-81] 81 MG tablet,delayed release (DR/EC) 81 mg PO DAILY RF: 0 triamcinolone acetonide 5 GM paste 1 applic Topical PRN PRNRF: 0 nitroglycerin [Nitrostat] 0.4 MG tablet, sublingual 0.4 mg PO PRN PRNRF: 0 omeprazole [Prilosec] 20 MG capsule,delayed release(DR/EC) 20 mg PO DAILY PRNRF: 0 losartan 100 MG tablet 100 mg PO DAILY RF: 0 hydroxyzine pamoate [Vistaril] 25 MG capsule 25 mg PO DAILY PRNRF: 0 cholecalciferol (vitamin D3) [Vitamin D3] 2,000 UNIT capsule 2,000 unit PO DAILY RF: 0 ketoconazole 30 GM cream 60 gm Topical BID Qty: 1 RF: 0 acetaminophen 650 MG tablet extended release 650 mg PO Q4H PRN (Reason: Pain) Qty: 30 RF: 0 ipratropium-albuterol 3 ML solution for nebulization 3 ml Inhalation Q6H PRN PRNRF: 0 benzonatate 100 MG capsule 100 mg PO TID PRN PRNRF: 0 metformin 1,000 MG tablet 1,000 mg PO DAILY RF: 0 gabapentin 100 MG capsule 100 mg PO HS RF: 0 clotrimazole 15 GM cream 1 applic Topical TID RF: 0 glipizide 5 MG tablet 5 mg PO DAILY RF: 0 Pentoxifylline 400 MG Tablet.Er 400 mg PO TID RF: 0 furosemide 40 MG tablet 40 mg PO BID DIURETIC RF: 0 Changed insulin detemir U-100 [Levemir U-100 Insulin] 100 UNIT/ML solution 60 unit subcut QPM Qty: 10 RF: 0 Discontinued Fluticasone/Salmeterol [Advair 500-50 Diskus] 1 EACH Blst.W.Dev 1 ea Inhalation BID RF: 0 budesonide-formoterol [Symbicort] 60 PUFF HFA aerosol inhaler 2 puff Inhalation BID RF: 0 Discharge Instructions Instructions: Prednisone (By mouth), Using Oxygen at Home (DC), COPD (Chronic Obstructive Pulmonary Disease) (DC) Additional Instructions: Home health Nursing. Return to the hospital with any fever, bleeding, chest pain, or shortness of breath. Use 3L of oxygen at rest and 6 L with activity. Stand Alone Forms: Nursing Discharge Form Referrals: Rosemary Chapman MD [ NON-[facility] STAFF PHYSICIAN] - (Sunday 08/12 at 10:30 am) Gissel Carbone [Primary Care Provider] - 07/11/18 1:00 pm Activity:: Activity as Tolerated Equipment/Supplies:: No Equipment Needed Diet:: Cardiac Diabetic Discharge Orders Discharge Orders: Discharge Order (Routine); Ordered 07/08/18 Ordered By: Noemi Fallon 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, +1 edema in BLE's, no clubbing or cyanosis DS: Data Vitals/I&O Vitals and I&O: Vital Signs Temperature 36.0 C L 07/08/18 07:30 Temperature Source Tympanic 07/08/18 07:30 Pulse 70 07/08/18 07:30 Pulse Rhythm Regular 07/08/18 08:42 Respiratory Rate 20 07/08/18 07:30 Respiratory Effort Non-Labored 07/08/18 08:42 Respiratory Depth Normal 07/08/18 08:42 Respiratory Pattern Normal 07/08/18 08:42 Blood Pressure 125/52 L 07/08/18 07:30 Pulse Oximetry 91 L 07/08/18 07:30 Oxygen Delivery Method Room Air 07/08/18 07:30 Oxygen Flow Rate 0 07/08/18 07:30 Fraction of Inspired Oxygen (FIO2) 3 07/08/18 07:30 Pain Level 0 07/08/18 07:30 Comment 07/08/18 07:30 Intake & Output 07/07/18 07/07/18 07/08/18 11:59 23:59 11:59 Intake Total 810 / 810 1040 / 1040 575 / 575 Output Total 900 / 900 1800 / 1800 2550 / 2550 Balance - / -90 - / - -1974 / Weight 106.7 kg Intake: IV 50 / 50 Oral 790 / 790 990 / 990 575 / 575 Output: Urine 900 / 900 1800 / 1800 2550 / 2550 Other: Urine Color Yellow Yellow Yellow Urine Appearance Clear Clear Clear Urine Odor Normal None Strong Comment pt voided x2 Stool Size Moderate Stool Characteristics Soft Voiding Methods Toilet Toilet Toilet Completed studies during hospitalization [Text1]: CXR 07/08/18: Improvement in bilateral infiltrates. CXR 07/04/18: Bilateral pulmonary infiltrates suspicious for pneumonia. Labs on day of discharge: Preliminary micro results at discharge 07/07/18 04:40 Sputum Culture - Preliminary Sputum Normal Erika 07/04/18 20:10 Blood Culture - Preliminary Blood NO GROWTH 72 HOURS 07/04/18 19:50 Blood Culture - Preliminary Blood NO GROWTH 72 HOURS
--- NOTE | 2018-07-08 12:01 | CMDISCH_ITS ---
- If Service Date Differs Date of service: 07/08/18 Time of Service: 11:49 LACE Index Scoring Tool - Questions: Length of Stay (in days): 4 - 6 Acuity (Admit via E.D.?): Yes Comorbidities: Diabetes w/o Complication, Congestive Heart Failure, Chronic Pulmonary Disease E.D. Visits: 4 - Answers: Total Score: 16 Risk of Readmission: High Risk Care Management Discharge Reason for Hospitalization: Pneumonia, COPD Exacerbation Discharge Plan: Stacey will return home today with new home health RN services. She will require an increase in her home oxygen, therefore RT Lawrence, is assisting with this at this time. Stacey will have continued CFC moderate needs , CM has left a VM for her CM [place]. Stacey states that either a friend will transport or she will go via taxi. CM has also left a VM at [facility] to discuss whether Stacey has a concentrator at home or not. Patient/Family Education Needs: Review DC instructions, any limitations, and discuss Ask Me Three Services Needed at Discharge: Home Health Care Services (RN), Homemaking Services ([facility] Moderate Needs), Oxygen Therapy ([facility])
--- NOTE | 2018-07-08 12:26 | PDOC.HHF2F ---
1. Encounter Date and Reason I certify that JONNY MUNGUIA was seen by Noemi Fallon on 07/08/18 and that I had a [id number] encounter with this patient that meets the physician face to face encounter requirements. 2. Clinical Findings Supporting Skilled Need and Homebound Status I certify that home health services are medically necessary, include either intermittent fdc and/or physical/speech therapy, and that this patient is homebound in that absences from the home require considerable and taxing effort and are infrequent or of short duration, or are attributable to the need to receive medical care. [X] (a) Attached documentation from encounter provides clinical findings supporting skilled need and homebound status (including what assistance patient requires to leave the home). 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 3. Certification and Authentication I certify that I composed the above information based on my clinical judgement relating to this patient's medical condition and, if applicable, clinical findings communicated to me by the NPP or inpatient physician who performed the Home Health Referral. All further orders will be obtained through ___Dr Carbone (Community Based Physician - PCP)
== END 2018-07-08 13:51 | disposition home health service (06) | DRG 190 ==
LOC: ER 20:02 → MS 07-05 11:29
PROVIDERS: Admitting Provider Internal Medicine; Emergency Provider Emergency Medicine; PCP Nurse Practitioner Family; Visit Provider Internal Medicine
DX: J44.0 Chronic obstructive pulmonary disease with (acute) lower respiratory infection (principal); J18.9 Pneumonia, unspecified organism; I50.23 Acute on chronic systolic (congestive) heart failure; J96.21 Acute and chronic respiratory failure with hypoxia; I42.0 Dilated cardiomyopathy; J44.1 Chronic obstructive pulmonary disease with (acute) exacerbation; Z99.81 Dependence on supplemental oxygen; I25.10 Atherosclerotic heart disease of native coronary artery without angina pectoris; E11.65 Type 2 diabetes mellitus with hyperglycemia; Z79.4 Long term (current) use of insulin; T38.0X5A Adverse effect of glucocorticoids and synthetic analogues, initial encounter
CPT/HCPCS: 36415; 80048; 80053; 87040; 93005; 94640; 96365; 96366; 96375; 99223; 99232; 99239; 99285; J1650; 71045; 83036; 83735; 83880; 84443; 84484; 85025; 87070; 87205; 93010; J0456; J0696; J1940; J2930; J3490; J7512; J7620

== ENCOUNTER 2018-07-19 00:50 | Outpatient (CLI) | payer MEDICARE, SELFPAY ==
--- NOTE | 2018-07-19 08:47 | DI.RAD_ITS ---
SYMPTOMS/DIAGNOSIS: COMMUNITY-ACQUIRED PNEUMONIA PA AND LATERAL CHEST: Comparison is made with June,. The heart is mildly enlarged. The lungs appear clear. No infiltrate or effusion is seen. The previously noted infiltrate is resolved. IMPRESSION: Interval clearing of previously noted infiltrate.
== END 2018-07-19 01:10 ==
PROVIDERS: PCP Nurse Practitioner Family; Visit Provider Nurse Practitioner Family
DX: J18.9 Pneumonia, unspecified organism (principal)
CPT/HCPCS: 71046

== ENCOUNTER → 2018-09-28 10:08 | Outpatient (BNVA) | payer MEDICARE, SELFPAY | PROVIDERS: Visit Provider Student in an Organized Health Care Education/Training Program | DX: I42.0 Dilated cardiomyopathy (principal); I25.10 Atherosclerotic heart disease of native coronary artery without angina pectoris; I10 Essential (primary) hypertension; I27.20 Pulmonary hypertension, unspecified; E11.9 Type 2 diabetes mellitus without complications; Z79.4 Long term (current) use of insulin; J44.9 Chronic obstructive pulmonary disease, unspecified; Z87.891 Personal history of nicotine dependence | CPT/HCPCS: 99214 ==

== ENCOUNTER 2018-12-05 01:38 | Outpatient (CLI) | payer MEDICARE, SELFPAY ==
--- NOTE | 2018-12-05 13:10 | DI.CT_ITS ---
SYMPTOMS/DIAGNOSIS: CHRONIC OBSTRUCTIVE LUNG DISEASE, J44.9, F/U LOW DOSE EXAM FOR MULTIPLE LUNG NODULES CT SCAN OF THE CHEST: CT scan of the chest was performed without intravenous contrast material. Comparison is 06/21/18. There is atherosclerosis of the thoracic aorta. No aneurysmal dilatation is seen. The heart size is within normal limits. Coronary artery calcifications are present. No significant thoracic adenopathy, pleural effusion or pneumothorax is identified. Central lobular emphysematous changes are present in the lungs. There has been no change in number or size of the pulmonary nodules since 06/21/16. No new infiltrates are seen. The tracheobronchial tree is unremarkable. Chronic changes are seen in the thoracic spine. These appear stable. IMPRESSION: Stable pulmonary nodules. Stable emphysematous changes in the lungs.
== END 2018-12-05 01:58 ==
PROVIDERS: PCP Nurse Practitioner Family; Visit Provider Internal Medicine
DX: J44.9 Chronic obstructive pulmonary disease, unspecified (principal); J43.9 Emphysema, unspecified; R91.8 Other nonspecific abnormal finding of lung field
CPT/HCPCS: 71250

== ENCOUNTER 2019-01-12 13:31 | Outpatient (REF) | payer MEDICARE, SELFPAY ==
[2019-01-12 18:48] LABS: HCT 37.4 % (36.0-46.0); Mean Corp. HGB Concentration 32.1 g/dL (32.0-36.0); Mean Corpuscular Hemoglobin 31.2 pg (27.0-33.0); Mean Corpuscular Volume 97.1 fL (80-95); Mean Platelet Volume 11.2 fL (8.0-11.0); Platelet Count 212 x1000/uL (130-400); RBC 3.85 m/cumm (4.00-5.20); RBC Distribution Width 15.2 % (11.7-14.6); White Blood Cell Count 8.79 k/cumm (4.4-10.8)
[2019-01-12 18:58] LABS: Anion Gap 9.9 mmol/L (3-11); BUN 20 mg/dL (7-18); CO2 30.1 mmol/L (21.0-32.0); CREATININE 1.22 mg/dL (0.55-1.02); Calcium 8.9 mg/dL (8.5-10.1); Chloride 102 mmol/L (98-107); Estimated GFR 43.33 (mL/min/1.73m2); Glucose 193 mg/dL (70-100); NT-proBNP 793 pg/mL; Potassium 3.7 mmol/L (3.5-5.1); Sodium 142 mmol/L (136-145)
== END 2019-01-12 13:51 ==
LOC: NCHCN 13:31
PROVIDERS: PCP Nurse Practitioner Family; Visit Provider Nurse Practitioner Family
DX: N18.3 Chronic kidney disease, stage 3 (moderate) (principal); I42.0 Dilated cardiomyopathy; E11.9 Type 2 diabetes mellitus without complications; Z79.4 Long term (current) use of insulin
CPT/HCPCS: 80048; 85027; 83880

== ENCOUNTER 2019-01-21 22:24 | Emergency (ER) | payer MEDICARE, SELFPAY ==
[2019-01-21 22:32] VITALS: BP 128/53; PULSE 71; RESP 26; TEMP 38; O2SAT 90
--- NOTE | 2019-01-21 22:35 | DI.RAD_ITS ---
SYMPTOMS/DIAGNOSIS: SHORTNESS OF BREATH, COUGH PORTABLE AP CHEST: Comparison 07/19/18. The heart size and pulmonary vasculature are within normal limits. No gross effusions or pneumothoraces are identified. There are increased lung markings predominantly in the bases, left greater than right. The lungs appear hyperlucent in the apices raising the question of underlying COPD. The bones appear intact. IMPRESSION: Bilateral basilar infiltrates. These are nonspecific. Pneumonia, edema or atelectasis should be considered.
--- NOTE | 2019-01-21 22:36 | W.ED.GENAD ---
Discharge Plan Disposition Patient Disposition: HOME Condition: Stable Discharge Details Chief Complaint: SOB Clinical Impression: COPD exacerbation Primary Care Provider: Gissel Carbone ED Provider: Albert Hernandez Home Meds and New Rx's Prescriptions: New prednisone 20 mg tablet 60 mg PO DAILY 4 Days Qty: 12 RF: 0 amoxicillin-pot clavulanate [Augmentin] 875-125 mg tablet 1 tab PO BID Qty: 14 RF: 0 azithromycin 250 mg tablet 250 mg PO DAILY 4 Days Qty: 4 RF: 0 No Action sertraline 25 mg tablet 25 mg PO DAILY RF: 0 levalbuterol tartrate [Xopenex HFA] 15 GM HFA aerosol inhaler 45 mcg Inhalation Q4H PRN Qty: 1 RF: 0 atorvastatin 40 MG tablet 40 mg PO DAILY Qty: 30 RF: 11 spironolactone 25 MG tablet 12.5 mg PO DAILY Qty: 30 RF: 11 bisoprolol fumarate 5 mg tablet 10 mg PO DAILY Qty: 60 RF: 11 triamcinolone acetonide 5 GM paste 1 applic Topical PRN PRNRF: 0 nitroglycerin [Nitrostat] 0.4 MG tablet, sublingual 0.4 mg PO PRN PRNRF: 0 losartan 100 MG tablet 50 mg PO DAILY RF: 0 hydroxyzine pamoate [Vistaril] 25 MG capsule 25 mg PO DAILY PRNRF: 0 ketoconazole 30 GM cream 60 gm Topical BID Qty: 1 RF: 0 acetaminophen 650 MG tablet extended release 650 mg PO Q4H PRN (Reason: Pain) Qty: 30 RF: 0 ipratropium-albuterol 3 ML solution for nebulization 3 ml Inhalation Q6H PRN PRNRF: 0 metformin 1,000 MG tablet 1,000 mg PO DAILY RF: 0 gabapentin 100 MG capsule 100 mg PO HS RF: 0 clotrimazole 15 GM cream 1 applic Topical TID RF: 0 glipizide 5 MG tablet 5 mg PO DAILY RF: 0 Pentoxifylline 400 MG Tablet.Er 400 mg PO TID RF: 0 furosemide 40 MG tablet 40 mg PO BID DIURETIC RF: 0 Levemir U-100 Insulin 100 UNIT/ML solution 60 unit subcut QPM Qty: 10 RF: 0 Symbicort 160-4.5 mcg/actuation Hfa Aerosol Inhaler 2 puff Inhalation BID Qty: 1 RF: 0 Discharge Instructions Instructions: COPD (Chronic Obstructive Pulmonary Disease) (ED) Additional Instructions: follow up with your primary care provider next week if you feel you are becoming more ill or difficulty breathing return to the emergency department Medical Decision Making 73 yo female with hx of copd on home o2, htn, herd, hld, dm, who comes in with worsening shortness of breath over the course of this past week with increased cough and low grade fevers to 100. She arrives and only can speak in 3-4 word sentences, 90% on 5L NC. She has diffuse wheezing on exam consistent with copd, will tx with nebs and steroids. She denies any chest pressure or pain so doubt acs at this time. No evidence of dvt on exam or pleuritic pain and exam consistent with copd so doubt PE at this time. Will obtain xray to eval for infiltrate pt feels much better, still has mild tachypnea in the 24-26 range. Labs show no acute abnormalities from prior lab work, mild leukocytosis. I do not see a clear infiltrate on xray but pt states she doesn't want to be admitted despite my recommendation she be admitted. She states she wants to go home and understands risks including and disability of worsening copd and has capacity to make her own decisions. I will treat her with prednisone course and also abx and advised to return if symptoms worsen/changes her mind and f/u with pcp Differential Diagnosis copd, pna, chf Medical Records Medical records reviewed: Yes I reviewed the patient's medical records. Imaging Data Radiologic Study: Attestation: I personally reviewed and interpreted this imaging study as follows: Imaging: X-Ray My impression: no acute findings Lab Data Lab results reviewed: Yes I reviewed the patient's lab results. HPI General Mode of arrival: wheelchair. Date/Time Provider Initiated Documentation: 01/21/19 22:30. Limitations to Documentation: no limitations. Information obtained by: patient. History of Present Illness 73 year old F presents to the emergency department with the chief complaint of shortnes of breath, described as severe, Patient started experiencing this day(s) (5) and it has been constant. No relieving factors improve symptom(s), No exacerbating factors reported . Patient notes cough. Related Data Home Medications Medication Instructions Recorded Confirmed nitroglycerin [Nitrostat] 0.4 mg PO PRN PRN 08/06/13 01/21/19 triamcinolone acetonide 1 applic TOPICAL PRN PRN 08/06/13 01/21/19 levalbuterol tartrate [Xopenex HFA] 45 mcg INHALATION Q4H PRN #1 01/24/14 01/21/19 inhaler hydroxyzine pamoate [Vistaril] 25 mg PO DAILY PRN 10/09/15 01/21/19 losartan 50 mg PO DAILY 10/09/15 01/21/19 ketoconazole 60 gm TOPICAL BID #1 tube 02/22/16 01/21/19 acetaminophen 650 mg PO Q4H PRN #30 tablet.er 11/12/17 01/21/19 atorvastatin 40 mg PO DAILY #30 tab-cap 01/06/18 01/21/19 spironolactone 12.5 mg PO DAILY #30 tab-cap 01/06/18 01/21/19 Pentoxifylline 400 mg PO TID 02/12/18 01/21/19 clotrimazole 1 applic TOPICAL TID 02/12/18 01/21/19 gabapentin 100 mg PO HS 02/12/18 01/21/19 glipizide 5 mg PO DAILY 02/12/18 01/21/19 ipratropium-albuterol 3 ml INHALATION Q6H PRN PRN 02/12/18 01/21/19 metformin 1,000 mg PO DAILY 02/12/18 01/21/19 furosemide 40 mg PO BID DIURETIC tab 02/18/18 01/21/19 Levemir U-100 Insulin 60 unit SUBCUT QPM #10 ml 07/08/18 01/21/19 budesonide-formoterol [Symbicort] 2 puff INHALATION BID #1 inh 07/08/18 01/21/19 sertraline 25 mg tablet 25 mg PO DAILY 08/04/18 01/21/19 bisoprolol fumarate 5 mg tablet 10 mg PO DAILY #60 tab 12/14/18 01/21/19 amoxicillin-pot clavulanate 1 tab PO BID #14 tab 01/21/19 [Augmentin] azithromycin 250 mg PO DAILY 4 Days #4 tab 01/21/19 prednisone 60 mg PO DAILY 4 Days #12 tab 01/21/19 Previous Rx's Medication Instructions Recorded ketoconazole 60 gm TOPICAL BID #1 tube 02/22/16 acetaminophen 650 mg PO Q4H PRN #30 tablet.er 11/12/17 atorvastatin 40 mg PO DAILY #30 tab-cap 01/06/18 spironolactone 12.5 mg PO DAILY #30 tab-cap 01/06/18 furosemide 40 mg PO BID DIURETIC tab 02/18/18 Levemir U-100 Insulin 60 unit SUBCUT QPM #10 ml 07/08/18 budesonide-formoterol [Symbicort] 2 puff INHALATION BID #1 inh 07/08/18 bisoprolol fumarate 5 mg tablet 10 mg PO DAILY #60 tab 12/14/18 amoxicillin-pot clavulanate 1 tab PO BID #14 tab 01/21/19 [Augmentin] azithromycin 250 mg PO DAILY 4 Days #4 tab 01/21/19 prednisone 60 mg PO DAILY 4 Days #12 tab 01/21/19 Allergies Allergy/AdvReac Type Severity Reaction Status Date / Time peach Allergy Intermediate HIVES Unverified 01/21/19 22:32 Iodinated Contrast- Oral and Allergy Unknown Unverified 01/21/19 22:32 IV Dye [Iodinated Contrast Media - IV Dye] morphine AdvReac Intermediate Nausea Unverified 01/21/19 22:32 General Stated Complaint: SOB KRYSTAL: 2 Review of Systems Review of Systems All systems reviewed & are unremarkable except as noted in HPI and below Constitutional Denies weakness Eyes Denies loss of vision ENT Denies change in voice Gastrointestinal Denies abdominal pain, Denies nausea and Denies vomiting Musculoskeletal Denies joint swelling Integumentary/Breasts Denies rash Neurologic Denies loss of vision and Denies weakness [facility] Medical History Palliative care patient (Acute) Dependence on continuous supplemental oxygen (Chronic) Chronic anxiety (Chronic) Counseling regarding advance directives and goals of care (Acute) Acute and chronic respiratory failure with hypoxia (Chronic) Insulin dependent diabetes mellitus (Chronic) Hypertension (Chronic) History of EKG (Chronic) Angina pectoris (Chronic) History of COPD (Chronic) History of asthma (Chronic) Gastroesophageal reflux disease (Chronic) Lower extremity edema (Chronic) Hyperlipidemia (Chronic) History of diabetes mellitus (Chronic) Osteoarthritis of right hip (Acute) Surgical History H/O cardiac catheterization (Chronic) 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) History of Surgical Procedure (Chronic) Family History Mother Diabetes Father Myocardial infarction Brother Cancer Social History Smoking/Tobacco Use Status: Former Tobacco Use Tobacco: How many years used: 50 Alcohol Intake: current Alcohol Intake frequency: holidays/special occasions only Drug use: Never Substance use type: does not use Adopted: No Caregiver/Support person: No Foster care: No Household members: none Housing: apartment Number of Children: 0 number of grandchildren: 0 Pets and animals: Yes Pets and animals: dog(s) Sexually active: No What type of physical activity do you participate in: walking and occasional exercise Duration: < 15 minutes/day Do you feel safe at home: Yes Do you feel safe in your relationship?: Yes Exam Const General: other (tachypneic) Orientation: alert HENMT Head: normal to inspection Ears: external ears normal General nose exam: external nose normal Mouth: moist mucous membranes Eyes General: appearance normal, both eyes and all related structures Neck Neck: normal visual inspection Resp Effort & Inspection: audible wheezes Cardio Jugular venous pressure: no JVD Skin General skin exam: no rashes or lesions noted Neuro General: alert and oriented x3 Extrem General: normal to inspection Psych Mental Status: mental status grossly normal Course Vital Signs Temperature 38.0 C H 01/21/19 22:32 Pulse 71 01/21/19 22:32 Respiratory Rate 26 H 01/21/19 22:32 Blood Pressure 128/53 L 01/21/19 22:32 Pulse Oximetry 90 L 01/21/19 22:32 Temperature 38.0 C H 01/21/19 22:32 Temperature Source Temporal Artery Scan 01/21/19 22:32 Pulse 71 01/21/19 22:32 Respiratory Rate 26 H 01/21/19 22:32 Respiratory Effort Labored 01/21/19 22:32 Blood Pressure 128/53 L 01/21/19 22:32 Pulse Oximetry 90 L 01/21/19 22:32 Oxygen Delivery Method Nasal Cannula 01/21/19 22:32 Oxygen Flow Rate 5 01/21/19 22:32
[2019-01-21] MEDS: methylPREDNISolone SUCC 125 MG VIAL (22:45)
[2019-01-21] MEDS: Albuterol/Ipratropium 3 ML UPD VIAL (22:45)
[2019-01-21] MEDS: Normal Saline Flush 10 ML SYR IVP (22:45)
[2019-01-21 22:51] LABS: Abs Immature Grans 0.03 k/cumm (0.0-0.09); Absolute Basophil Count 0.01 k/cumm (0.0-0.2); Absolute Eosinophil Count 0.08 k/cumm (0.0-0.7); Absolute Lymphocyte Count 1.35 k/cumm (1.2-3.4); Absolute Monocyte Count 1.08 k/cumm (0.11-0.7); Absolute Neutrophil Count 10.98 k/cumm (1.2-6.7); Basophils % 0.1; Eosinophils % 0.6; HCT 33.8 % (36.0-46.0); HGB 10.9 g/dL (12.0-15.5); Immature Grans % 0.2; Mean Corp. HGB Concentration 32.2 g/dL (32.0-36.0); Mean Corpuscular Hemoglobin 31.5 pg (27.0-33.0); Mean Corpuscular Volume 97.7 fL (80-95); Mean Platelet Volume 10.6 fL (8.0-11.0); Neutrophils % 81.1; Platelet Count 189 x1000/uL (130-400); RBC 3.46 m/cumm (4.00-5.20); RBC Distribution Width 15.2 % (11.7-14.6); White Blood Cell Count 13.54 k/cumm (4.4-10.8)
[2019-01-21 23:09] LABS: ALT 25 U/L (12-78); AST 15 U/L (15-37); Albumin 3.4 g/dL (3.4-5.0); Alkaline Phosphatase 93 U/L (46-116); Anion Gap 11.3 mmol/L (3-11); BUN 19 mg/dL (7-18); Bilirubin, Total 1.2 mg/dL (0.2-1.0); CO2 27.7 mmol/L (21.0-32.0); CREATININE 1.32 mg/dL (0.55-1.02); Calcium 8.4 mg/dL (8.5-10.1); Chloride 101 mmol/L (98-107); Estimated GFR 39.56 (mL/min/1.73m2); Glucose 191 mg/dL (70-100); Magnesium 1.4 mg/dL (1.8-2.4); NT-proBNP 2466 pg/mL; Potassium 3.6 mmol/L (3.5-5.1); Sodium 140 mmol/L (136-145); Total Protein 7.2 g/dL (6.4-8.2)
[2019-01-21] MEDS: cefTRIAXone 2 GM/50 ML BAG IVPB (23:18)
[2019-01-21 23:25] LABS: INR 1.1 (0.9-1.1); PTT Activated 22.4 sec (21.0-31.4); Prothrombin Time 11.1 sec (9.3-11.0)
[2019-01-21] MEDS: Azithromycin 250 MG TAB 500 MG PO (23:38)
--- NOTE | 2019-01-21 23:43 | DI.VRAD_ITS ---
EXAM: XR Chest, 1 View EXAM DATE/TIME: 01/21/2019 10:36 PM CLINICAL HISTORY: 73 years old, female; Signs and symptoms; Cough and shortness of breath; Patient HX: SOB with cough TECHNIQUE: Imaging protocol: XR of the chest, 1 view. COMPARISON: CR XR CHEST 2V PA LATERAL 07/19/2018 8:34 AM FINDINGS: Lungs: Patchy alveolar density in the right lung base and to a lesser degree the left lung base, concerning for mild basilar infiltrates or edema. Pleural space: No pleural effusion or pneumothorax. Heart/Mediastinum: Heart size normal. No mediastinal widening. Pulmonary vaculature normal. No tracheal shift. Bones/joints: No acute osseous abnormalities are identified. IMPRESSION: Patchy mild bilateral interstitial and alveolar opacities consistent with basilar infiltrates or edema. Dictated and Authenticated by: Corky Flores MD. Ordering:NOMAN Price MD
== END 2019-01-22 00:05 | disposition home or self-care (01) ==
PROVIDERS: Emergency Provider Emergency Medicine; PCP Nurse Practitioner Family
DX: J44.1 Chronic obstructive pulmonary disease with (acute) exacerbation (principal); I10 Essential (primary) hypertension; E11.9 Type 2 diabetes mellitus without complications; Z79.4 Long term (current) use of insulin; Z99.81 Dependence on supplemental oxygen
CPT/HCPCS: 36415; 80053; 87449; 96365; 99284; 71045; 83735; 83880; 85025; 85610; 85730; J2930; J3490; J7620

== ENCOUNTER 2019-01-24 15:19 | Inpatient (IN) | payer MEDICARE, SELFPAY ==
[2019-01-24] VITALS (30 sets, daily range): BP systolic 141–168; BP diastolic 44–72; PULSE 61–86; RESP 8–28; TEMP 34–37; O2SAT 85–99
--- NOTE | 2019-01-24 15:35 | DI.RAD_ITS ---
SYMPTOM/DIAGNOSIS: WORSENING SOB WITH KNOWN PNEUMONIA PORTABLE AP CHEST: Comparison is made with 01/21/19. The heart size and pulmonary vasculature are stable and within normal limits. The lungs show no focal consolidating infiltrates or effusions. No pneumothorax is identified. No acute osseous abnormality is identified. IMPRESSION: No definite acute pulmonary process.
--- NOTE | 2019-01-24 15:37 | W.ED.GENAD ---
Discharge Plan Disposition Patient Disposition: [facility] INPATIENT Condition: Good Discharge Details Chief Complaint: SOB Clinical Impression: COPD exacerbation, Community acquired pneumonia Primary Care Provider: Gissel Carbone ED Provider: Bebo Cárdenas Home Meds and New Rx's Prescriptions: No Action sertraline 25 mg tablet 25 mg PO DAILY RF: 0 levalbuterol tartrate [Xopenex HFA] 15 GM HFA aerosol inhaler 45 mcg Inhalation Q4H PRN Qty: 1 RF: 0 atorvastatin 40 MG tablet 40 mg PO DAILY Qty: 30 RF: 11 spironolactone 25 MG tablet 12.5 mg PO DAILY Qty: 30 RF: 11 bisoprolol fumarate 5 mg tablet 10 mg PO DAILY Qty: 60 RF: 11 triamcinolone acetonide 5 GM paste 1 applic Topical PRN PRNRF: 0 nitroglycerin [Nitrostat] 0.4 MG tablet, sublingual 0.4 mg PO PRN PRNRF: 0 losartan 100 MG tablet 100 mg PO DAILY RF: 0 hydroxyzine pamoate [Vistaril] 25 MG capsule 25 mg PO DAILY PRNRF: 0 ketoconazole 30 GM cream 60 gm Topical BID Qty: 1 RF: 0 acetaminophen 650 MG tablet extended release 650 mg PO Q4H PRN (Reason: Pain) Qty: 30 RF: 0 ipratropium-albuterol 3 ML solution for nebulization 3 ml Inhalation Q6H PRN PRNRF: 0 metformin 1,000 MG tablet 1,000 mg PO DAILY RF: 0 gabapentin 100 MG capsule 100 mg PO HS RF: 0 clotrimazole 15 GM cream 1 applic Topical TID RF: 0 glipizide 5 MG tablet 5 mg PO DAILY RF: 0 Pentoxifylline 400 MG Tablet.Er 400 mg PO TID RF: 0 furosemide 40 MG tablet 40 mg PO BID DIURETIC RF: 0 Levemir U-100 Insulin 100 UNIT/ML solution 60 unit subcut QPM Qty: 10 RF: 0 Symbicort 160-4.5 mcg/actuation Hfa Aerosol Inhaler 2 puff Inhalation BID Qty: 1 RF: 0 prednisone 20 mg tablet 60 mg PO DAILY 4 Days Qty: 12 RF: 0 amoxicillin-pot clavulanate [Augmentin] 875-125 mg tablet 1 tab PO BID Qty: 14 RF: 0 azithromycin 250 mg tablet 250 mg PO DAILY 4 Days Qty: 4 RF: 0 Medical Decision Making This is a pleasant 73-year-old female who presents today for evaluation of shortness of breath for greater than a week, notably worsening over the last 4 days. She is on 4 L of home O2 at baseline for COPD. She has had a cough with productive yellow sputum. She was here 4 days ago where she did not want to stay overnight, she was sent home with prednisone breathing treatments Augmentin and azithromycin and has been taking these as directed. She denies any fevers. Her cough and shortness of breath is notably worsen. Exam demonstrates notably decreased breath sounds, she was 76% on her baseline 4 L upon her arrival to the ER, is gradually come up to the mid 80s on 5 to 6 L. We will start BiPAP, repeat laboratory evaluation, evaluate for cardiac etiology, and portable chest x-ray to reassess in her pneumonia status. Concern for severe COPD exacerbation in conjunction with community-acquired pneumonia. 5:24 PM Chest x-ray is read by virtual radiologist is negative however I do feel that there is evidence of some mild concerning infiltrates, especially in conjunction with her symptomatology. And in conjunction with her previous x-ray. Laboratory work-up demonstrates normal troponin, he baseline level proBNP, normal electrolytes, renal function is stable, EKG is unchanged from prior EKGs. ABG demonstrates no evidence of acidosis, she does not oxygenate particularly well with a PO2 of 58 however after initial BiPAP trial the patient refuses any additional BiPAP and is now high flow secondary to patient noncompliance. I did discuss the case with the medical care person at bedside who cares for the patient's medical needs at home, it does appear that she has not been getting her antibiotics or steroids as directed on outpatient basis. We will give her again Solu-Medrol, doxycycline and Rocephin for treatment of community-acquired pneumonia. With her notable hypoxemia which is now stabilized but is not appropriate for discharge I feel that admission is certainly warranted for the patient. I discussed the case with Dr. Alonso and he agrees with the assessment and plan. Diagnosis COPD exacerbation, community-acquired pneumonia. I have extensively reviewed the treatment plan with the patient. I have addressed all patient concerns at this time. I have also discussed the plan with the admitting physician and they agree with the current assessment and plan and have agreed to assume responsibility for the patient. All parties demonstrate verbal understanding and agreement with our assessment and plan at this time. EKG 15: 36 Rate 66, IL 158, QTc 469, QRS 150, sinus rhythm, left bundle branch block, negative for SCARBOSSA criterion. Unchanged from previous EKGs HPI General Date/Time Provider Initiated Documentation: 01/24/19 15:20. HPI Narrative: This is a 73-year-old female with a past medical history of severe COPD, congestive heart failure, diabetes, hypertension, high cholesterol, who presents today for evaluation of notable shortness of breath. Patient was seen and assessed here in the ER roughly 4 days ago, at that time his concern for COPD exacerbation in conjunction with pneumonia per x-ray results. Per records it appears that the patient did not want to stay and left home against the recommendation of the practicing ED physician. Since then shortness of breath is continued and worsened, she continues to have cough with productive yellow sputum. She does complain of mild chest pain, but states that this is been going on for greater than a month, and she does take regular nitroglycerin for it. She denies any severe chest pain right now. She has been on Augmentin, azithromycin, and prednisone on an outpatient basis when she was discharged from the ED. She normally is on 4 L of oxygen at all times, and has been taking breathing treatments but states that these have not been helping. She denies any history of cardiac disease or MS. She denies any other complaints or modifying factors. She denies any calf tenderness, recent long trips, car rides, or surgeries. She denies any admissions within the last 90 days. Related Data Home Medications Medication Instructions Recorded Confirmed nitroglycerin [Nitrostat] 0.4 mg PO PRN PRN 08/06/13 01/24/19 triamcinolone acetonide 1 applic TOPICAL PRN PRN 08/06/13 01/24/19 levalbuterol tartrate [Xopenex HFA] 45 mcg INHALATION Q4H PRN #1 01/24/14 01/24/19 inhaler hydroxyzine pamoate [Vistaril] 25 mg PO DAILY PRN 10/09/15 01/24/19 losartan 100 mg PO DAILY 10/09/15 01/24/19 ketoconazole 60 gm TOPICAL BID #1 tube 02/22/16 01/24/19 acetaminophen 650 mg PO Q4H PRN #30 tablet.er 11/12/17 01/24/19 atorvastatin 40 mg PO DAILY #30 tab-cap 01/06/18 01/24/19 spironolactone 12.5 mg PO DAILY #30 tab-cap 01/06/18 01/24/19 Pentoxifylline 400 mg PO TID 02/12/18 01/24/19 clotrimazole 1 applic TOPICAL TID 02/12/18 01/24/19 gabapentin 100 mg PO HS 02/12/18 01/24/19 glipizide 5 mg PO DAILY 02/12/18 01/24/19 ipratropium-albuterol 3 ml INHALATION Q6H PRN PRN 02/12/18 01/24/19 metformin 1,000 mg PO DAILY 02/12/18 01/24/19 furosemide 40 mg PO BID DIURETIC tab 02/18/18 01/24/19 Levemir U-100 Insulin 60 unit SUBCUT QPM #10 ml 07/08/18 01/24/19 budesonide-formoterol [Symbicort] 2 puff INHALATION BID #1 inh 07/08/18 01/24/19 sertraline 25 mg tablet 25 mg PO DAILY 08/04/18 01/24/19 bisoprolol fumarate 5 mg tablet 10 mg PO DAILY #60 tab 12/14/18 01/24/19 amoxicillin-pot clavulanate 1 tab PO BID #14 tab 01/21/19 01/24/19 [Augmentin] azithromycin 250 mg PO DAILY 4 Days #4 tab 01/21/19 01/24/19 prednisone 60 mg PO DAILY 4 Days #12 tab 01/21/19 01/24/19 Previous Rx's Medication Instructions Recorded ketoconazole 60 gm TOPICAL BID #1 tube 02/22/16 acetaminophen 650 mg PO Q4H PRN #30 tablet.er 11/12/17 atorvastatin 40 mg PO DAILY #30 tab-cap 01/06/18 spironolactone 12.5 mg PO DAILY #30 tab-cap 01/06/18 furosemide 40 mg PO BID DIURETIC tab 02/18/18 Levemir U-100 Insulin 60 unit SUBCUT QPM #10 ml 07/08/18 budesonide-formoterol [Symbicort] 2 puff INHALATION BID #1 inh 07/08/18 bisoprolol fumarate 5 mg tablet 10 mg PO DAILY #60 tab 12/14/18 amoxicillin-pot clavulanate 1 tab PO BID #14 tab 01/21/19 [Augmentin] azithromycin 250 mg PO DAILY 4 Days #4 tab 01/21/19 prednisone 60 mg PO DAILY 4 Days #12 tab 01/21/19 Allergies Allergy/AdvReac Type Severity Reaction Status Date / Time peach Allergy Intermediate HIVES Unverified 01/24/19 15:49 Iodinated Contrast- Oral and Allergy Unknown Unverified 01/24/19 15:49 IV Dye [Iodinated Contrast Media - IV Dye] morphine AdvReac Intermediate Nausea Unverified 01/24/19 15:49 General KRYSTAL: 2 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) History of Surgical Procedure (Chronic) Social History Smoking/Tobacco Use Status: Former Tobacco Use Tobacco: How many years used: 50 Alcohol Intake: current Alcohol Intake frequency: holidays/special occasions only Drug use: Never Substance use type: does not use Adopted: No Caregiver/Support person: No Foster care: No Household members: none Housing: apartment Number of Children: 0 number of grandchildren: 0 Pets and animals: Yes Pets and animals: dog(s) Sexually active: No What type of physical activity do you participate in: walking and occasional exercise Duration: < 15 minutes/day Do you feel safe at home: Yes Do you feel safe in your relationship?: Yes Exam Narrative Exam Narrative: 1.Const: Well-nourished, Well-developed, appearing stated age 2.Eyes: PERRL, no conjunctival injection, and symmetrical lids. 3.ENT: Atraumatic external nose and ears. Moist MM. Neck: Symmetric, trachea midline, No thyromegaly. 4.CVS: +S1/S2, No murmurs or gallops. Peripheral pulses 2+ and equal in all extremities. Brisk capillary refill in all extremities. 5.RESP: Notably labored breathing, severely diminished lung sounds throughout, no focal wheezes or crackles that I can appreciate. Tripoding is present to 6.GI: Soft, Nontender/Nondistended, No hepatosplenomegaly. No guarding or rebound. 7.MSK: Normocephalic/Atraumatic, Extremities w/o deformity or ttp No cyanosis or clubbing, Normal movement of all extremities 8.Skin: Warm, Dry. No rashes or lesions. 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 Sensation grossly intact, no focal neurologic deficits. 10.Psych: (AAO) x3. Appropriate mood and affect
[2019-01-24] MEDS: Albuterol/Ipratropium 3 ML UPD VIAL (15:52)
[2019-01-24 16:00] LABS: HCT 34.7 % (36.0-46.0); Mean Corp. HGB Concentration 31.7 g/dL (32.0-36.0); Mean Corpuscular Hemoglobin 31.2 pg (27.0-33.0); Mean Corpuscular Volume 98.3 fL (80-95); RBC 3.53 m/cumm (4.00-5.20)
[2019-01-24 16:01] LABS: Mean Platelet Volume 11.5 fL (8.0-11.0); Platelet Count 221 x1000/uL (130-400)
[2019-01-24 16:09] LABS: Diff Comment Manual Differential; Ovalocytes 2+; Polychromasia Present
[2019-01-24 16:19] LABS: ALT 28 U/L (12-78); AST 14 U/L (15-37); Albumin 3.3 g/dL (3.4-5.0); Alkaline Phosphatase 85 U/L (46-116); Anion Gap 12.1 mmol/L (3-11); BUN 33 mg/dL (7-18); Bilirubin, Total 0.4 mg/dL (0.2-1.0); CO2 25.9 mmol/L (21.0-32.0); CREATININE 1.54 mg/dL (0.55-1.02); Calcium 8.8 mg/dL (8.5-10.1); Chloride 99 mmol/L (98-107); Estimated GFR 33.11 (mL/min/1.73m2); Glucose 380 mg/dL (70-100); NT-proBNP 1655 pg/mL; Potassium 4.1 mmol/L (3.5-5.1); Sodium 137 mmol/L (136-145); Total Protein 7.2 g/dL (6.4-8.2)
[2019-01-24 16:21] LABS: Troponin I < 0.02 ng/mL (0.00-0.06)
--- NOTE | 2019-01-24 16:23 | DI.VRAD_ITS ---
EXAM: XR Chest, 1 View EXAM DATE/TIME: 01/24/2019 3:36 PM CLINICAL HISTORY: 73 years old, female; Signs and symptoms; Other: Worsening SOB with known pneumonia TECHNIQUE: Imaging protocol: XR of the chest, 1 view. COMPARISON: SC XR PORTABLE CHEST AP 01/21/2019 10:51 PM FINDINGS: Lungs: Unremarkable. No consolidation. Pleural space: Unremarkable. No pleural effusion. No pneumothorax. Heart/Mediastinum: Unremarkable. No cardiomegaly. Bones/joints: Unremarkable. IMPRESSION: No acute findings. Dictated and Authenticated by: Anthony Galeana MD. Ordering:CLARA Lagunas MD
[2019-01-24 16:41] LABS: BE 1.4 mmol/L (-3-3); HCO3 25 mmol/L (22-28); pCO2 36 mmHg (34-47); pH 7.45 (7.35-7.45); pO2 58 mmHg (83-108); sO2 90 % (94-98); tCO2 23 mmol/L (22-29)
[2019-01-24 16:43] LABS: FIO2L 5 L; Site Right Radial
[2019-01-24] MEDS: methylPREDNISolone SUCC 125 MG VIAL IVP (16:45)
[2019-01-24] MEDS: cefTRIAXone 2 GM/50 ML BAG 100 GM (16:50)
[2019-01-24] MEDS: DOXYCYCLINE 100 MG in Normal Saline 100 ML IVPB (17:20)
--- NOTE | 2019-01-24 18:10 | W.PM.HP.N ---
Date of service: 01/24/19 Time of Service: 18:10 Assessment and Plan (1) COPD (chronic obstructive pulmonary disease): Current visit: Yes Status: Chronic COPD exacerbation. I do not see pneumonia (also per Vrads), but bronchitis at least. In any case will continue antibiotics but I think mono coverage with Rocephin will be adequate. Will contrinue updrafts, steroids and supplemental oxygen. Will cover hyperglycemia with sliding scale insulin. Reviewed advance directives and patient states she wishes to be DNR. Her arborer confirms. History of Present Illness Chief Complaint: Cough, SOB Narrative: 73 female with h/o COPD. 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 Treatment steroids and Z-pack (note not taking as prescribed). Returns with worsening SOB. In ER sats 70s in 3-4 word distress. Given updrafts, steroids and initially BiPAP, now on hi flow cannula. Given Rocephin and Doxy, admitted for further management. States she feels significantly better though not at baseline. 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) History of Surgical Procedure (Chronic) Social History Smoking/Tobacco Use Status: Former Tobacco Use Tobacco: How many years used: 50 Alcohol Intake: current Alcohol Intake frequency: holidays/special occasions only Drug use: Never Substance use type: does not use Adopted: No Caregiver/Support person: No Foster care: No Household members: none Housing: apartment Number of Children: 0 number of grandchildren: 0 Pets and animals: Yes Pets and animals: dog(s) Sexually active: No What type of physical activity do you participate in: walking and occasional exercise Duration: < 15 minutes/day Do you feel safe at home: Yes Do you feel safe in your relationship?: Yes Meds Home Medications Medication Instructions Recorded Confirmed Type nitroglycerin [Nitrostat] 0.4 mg PO PRN PRN 08/06/13 01/24/19 History triamcinolone acetonide 1 applic TOPICAL PRN PRN 08/06/13 01/24/19 History levalbuterol tartrate [Xopenex HFA] 45 mcg INHALATION Q4H PRN #1 01/24/14 01/24/19 History inhaler hydroxyzine pamoate [Vistaril] 25 mg PO DAILY PRN 10/09/15 01/24/19 History losartan 100 mg PO DAILY 10/09/15 01/24/19 History ketoconazole 60 gm TOPICAL BID #1 tube 02/22/16 01/24/19 Rx acetaminophen 650 mg PO Q4H PRN #30 tablet.er 11/12/17 01/24/19 Rx atorvastatin 40 mg PO DAILY #30 tab-cap 01/06/18 01/24/19 Rx spironolactone 12.5 mg PO DAILY #30 tab-cap 01/06/18 01/24/19 Rx Pentoxifylline 400 mg PO TID 02/12/18 01/24/19 History clotrimazole 1 applic TOPICAL TID 02/12/18 01/24/19 History gabapentin 100 mg PO HS 02/12/18 01/24/19 History glipizide 5 mg PO DAILY 02/12/18 01/24/19 History ipratropium-albuterol 3 ml INHALATION Q6H PRN PRN 02/12/18 01/24/19 History metformin 1,000 mg PO DAILY 02/12/18 01/24/19 History furosemide 40 mg PO BID DIURETIC tab 02/18/18 01/24/19 Rx Levemir U-100 Insulin 60 unit SUBCUT QPM #10 ml 07/08/18 01/24/19 Rx budesonide-formoterol [Symbicort] 2 puff INHALATION BID #1 inh 07/08/18 01/24/19 Rx sertraline 25 mg tablet 25 mg PO DAILY 08/04/18 01/24/19 History bisoprolol fumarate 5 mg tablet 10 mg PO DAILY #60 tab 12/14/18 01/24/19 Rx amoxicillin-pot clavulanate 1 tab PO BID #14 tab 01/21/19 01/24/19 Rx [Augmentin] azithromycin 250 mg PO DAILY 4 Days #4 tab 01/21/19 01/24/19 Rx prednisone 60 mg PO DAILY 4 Days #12 tab 01/21/19 01/24/19 Rx Allergies Allergy/AdvReac Type Severity Reaction Status Date / Time peach Allergy Intermediate HIVES Unverified 01/24/19 15:49 Iodinated Contrast- Oral and Allergy Unknown Unverified 01/24/19 15:49 IV Dye [Iodinated Contrast Media - IV Dye] morphine AdvReac Intermediate Nausea Unverified 01/24/19 15:49 Exam Narrative Exam Narrative: 158/54, 66, 21, 92%. HEENT unremarkable. Neck syupple. Lungs diminished. Heart distant, RRR; abdomen soft nontender; extremities w/o edema; neuro ox3, moves all 4s Results Labs : 01/24/19 15:40 01/24/19 15:40 Laboratory Results - last 24 hr 01/24/19 01/24/19 01/24/19 15:33 15:40 15:40 WBC 10.00 RBC 3.53 L Hgb 11.0 L Hct 34.7 L MCV 98.3 H MCH 31.2 MCHC 31.7 L RDW 15.0 H Plt Count 221 MPV 11.5 H Immature Gran % 0.0 Neutrophils % 92.0 Lymphocytes % 6.0 Monocytes % 2.0 Eosinophils % 0.0 Basophils % 0.0 Absolute Neutrophils 9.20 H Absolute Lymphocytes 0.60 L Absolute Monocytes 0.20 Absolute Eosinophils 0.00 Absolute Basophils 0.00 Differential Comment Manual differential RBC Morphology See below Polychromasia Present Ovalocytes 2+ Sample Site Right radial pCO2 36 pO2 58 L O2 Saturation 90 L ABG pH 7.45 ABG HCO3 25 ABG Total CO2 23 ABG Base Excess 1.4 Oxygen Liter Flow 5 Sodium 137 Potassium 4.1 Chloride 99 Carbon Dioxide 25.9 Anion Gap 12.1 H BUN 33 H D Creatinine 1.54 H Estimated GFR/1.73 m2 33.11 Glucose 380 H D Calcium 8.8 Total Bilirubin 0.4 AST 14 L ALT 28 Alkaline Phosphatase 85 Troponin I < 0.02 NT-Pro-B Natriuret Pep 1655 H Total Protein 7.2 Albumin 3.3 L Last Vital Signs Temp 37 C 01/24/19 15:39 Pulse 66 01/24/19 17:31 Resp 21 01/24/19 17:31 BP 158/54 H 01/24/19 17:31 Pulse Ox 92 L 01/24/19 17:31
--- NOTE | 2019-01-24 18:15 | HPE_ITS ---
Date of service: 01/24/19 Time of Service: 18:10 Assessment and Plan (1) COPD (chronic obstructive pulmonary disease): Current visit: Yes Status: Chronic COPD exacerbation. I do not see pneumonia (also per Vrads), but bronchitis at least. In any case will continue antibiotics but I think mono coverage with R ocephin will be adequate. Will contrinue updrafts, steroids and supplemental oxygen. Will cover hyperglycemia with sliding scale insulin. Reviewed advance directives and patient states she wishes to be DNR. Her oracle adf consultant confirms. History of Present Illness Chief Complaint: Cough, SOB Narrative: 73 female with h/o COPD. 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 Treatment steroids and Z-pack (note not taking as prescribed). Returns with worsening SOB. In ER sats 70s in 3-4 word distress. Given updrafts, steroi ds and initially BiPAP, now on hi flow cannula. Given Rocephin and Doxy, admitted for further management. States she feels significantly better though not at baseline. 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) History of Surgical Procedure (Chronic) Social History Smoking/Tobacco Use Status: Former Tobacco Use Tobacco: How many years used: 50 Alcohol Intake: current Alcohol Intake frequency: holidays/special occasions only Drug use: Never Substance use type: does not use Adopted: No Caregiver/Support person: No Foster care: No Household members: none Housing: apartment Number of Children: 0 number of grandchildren: 0 Pets and animals: Yes Pets and animals: dog(s) Sexually active: No What type of physical activity do you participate in: walking and occasional exercise Duration: < 15 minutes/day Do you feel safe at home: Yes Do you feel safe in your relationship?: Yes Meds Home Medications Medication Instructions Recorded Confirmed Type nitroglycerin [Nitrostat] 0.4 mg PO PRN PRN 08/06/13 01/24/19 History triamcinolone acetonide 1 applic TOPICAL PRN PRN 08/06/13 01/24/19 History levalbuterol tartrate [Xopenex HFA] 45 mcg INHALATION Q4H PRN #1 01/24/14 01/24/19 History inhaler hydroxyzine pamoate [Vistaril] 25 mg PO DAILY PRN 10/09/15 01/24/19 History losartan 100 mg PO DAILY 10/09/15 01/24/19 History ketoconazole 60 gm TOPICAL BID #1 tube 02/22/16 01/24/19 Rx acetaminophen 650 mg PO Q4H PRN #30 tablet.er 11/12/17 01/24/19 Rx atorvastatin 40 mg PO DAILY #30 tab-cap 01/06/18 01/24/19 Rx spironolactone 12.5 mg PO DAILY #30 tab-cap 01/06/18 01/24/19 Rx Pentoxifylline 400 mg PO TID 02/12/18 01/24/19 History clotrimazole 1 applic TOPICAL TID 02/12/18 01/24/19 History gabapentin 100 mg PO HS 02/12/18 01/24/19 History glipizide 5 mg PO DAILY 02/12/18 01/24/19 History ipratropium-albuterol 3 ml INHALATION Q6H PRN PRN 02/12/18 01/24/19 History metformin 1,000 mg PO DAILY 02/12/18 01/24/19 History furosemide 40 mg PO BID DIURETIC tab 02/18/18 01/24/19 Rx Levemir U-100 Insulin 60 unit SUBCUT QPM #10 ml 07/08/18 01/24/19 Rx budesonide-formoterol [Symbicort] 2 puff INHALATION BID #1 inh 07/08/18 01/24/19 Rx sertraline 25 mg tablet 25 mg PO DAILY 08/04/18 01/24/19 History bisoprolol fumarate 5 mg tablet 10 mg PO DAILY #60 tab 12/14/18 01/24/19 Rx amoxicillin-pot clavulanate 1 tab PO BID #14 tab 01/21/19 01/24/19 Rx [Augmentin] azithromycin 250 mg PO DAILY 4 Days #4 tab 01/21/19 01/24/19 Rx prednisone 60 mg PO DAILY 4 Days #12 tab 01/21/19 01/24/19 Rx Allergies Allergy/AdvReac Type Severity Reaction Status Date / Time peach Allergy Intermediate HIVES Unverified 01/24/19 15:49 Iodinated Contrast- Oral and Allergy Unknown Unverified 01/24/19 15:49 IV Dye [Iodinated Contrast Media - IV Dye] morphine AdvReac Intermediate Nausea Unverified 01/24/19 15:49 Exam Narrative Exam Narrative: 158/54, 66, 21, 92%. HEENT unremarkable. Neck syupple. Lungs diminished. Heart distant, RRR; abdomen soft nontender; extremities w/o edema; neuro ox3, moves all 4s Results Labs : 01/24/19 15:40 01/24/19 15:40 Laboratory Results - last 24 hr 01/24/19 01/24/19 01/24/19 15:33 15:40 15:40 WBC 10.00 RBC 3.53 L Hgb 11.0 L Hct 34.7 L MCV 98.3 H MCH 31.2 MCHC 31.7 L RDW 15.0 H Plt Count 221 MPV 11.5 H Immature Gran % 0.0 Neutrophils % 92.0 Lymphocytes % 6.0 Monocytes % 2.0 Eosinophils % 0.0 Basophils % 0.0 Absolute Neutrophils 9.20 H Absolute Lymphocytes 0.60 L Absolute Monocytes 0.20 Absolute Eosinophils 0.00 Absolute Basophils 0.00 Differential Comment Manual differential RBC Morphology See below Polychromasia Present Ovalocytes 2+ Sample Site Right radial pCO2 36 pO2 58 L O2 Saturation 90 L ABG pH 7.45 ABG HCO3 25 ABG Total CO2 23 ABG Base Excess 1.4 Oxygen Liter Flow 5 Sodium 137 Potassium 4.1 Chloride 99 Carbon Dioxide 25.9 Anion Gap 12.1 H BUN 33 H D Creatinine 1.54 H Estimated GFR/1.73 m2 33.11 Glucose 380 H D Calcium 8.8 Total Bilirubin 0.4 AST 14 L ALT 28 Alkaline Phosphatase 85 Troponin I < 0.02 NT-Pro-B Natriuret Pep 1655 H Total Protein 7.2 Albumin 3.3 L Last Vital Signs Temp 37 C 01/24/19 15:39 Pulse 66 01/24/19 17:31 Resp 21 01/24/19 17:31 BP 158/54 H 01/24/19 17:31 Pulse Ox 92 L 01/24/19 17:31
[2019-01-24] MEDS: Nystatin POWDER 60 GM JAR TP (19:58)
[2019-01-24] MEDS: Gabapentin 100 MG CAP PO (22:04)
[2019-01-24] MEDS: methylPREDNISolone SUCC 40 MG VIAL IM (23:12)
[2019-01-24] MEDS: Albuterol/Ipratropium 3 ML UPD VIAL UPD (23:12)
[2019-01-24 23:56] LABS: Glucose 526 mg/dL (70-100)
[2019-01-25] VITALS (9 sets, daily range): BP systolic 126–154; BP diastolic 47–74; PULSE 54–62; RESP 18–21; TEMP 34–37.1; O2SAT 85–97
[2019-01-25] MEDS: Insulin Aspart 100 UNITS/ML UNIT 18 UNITS SC (01:01)
[2019-01-25] MEDS: Albuterol/Ipratropium 3 ML UPD VIAL UPD ×3 (05:59→17:56)
[2019-01-25] MEDS: Insulin Aspart 300 UNITS/3 ML PEN SC ×5 (08:12→17:26)
[2019-01-25] MEDS: Spironolactone 25 MG TAB 12.5 MG PO (09:05)
[2019-01-25] MEDS: methylPREDNISolone SUCC 40 MG VIAL IV ×2 (09:05→15:56)
[2019-01-25] MEDS: Bisoprolol 5 MG TAB 10 MG PO (09:05)
[2019-01-25] MEDS: Furosemide 40 MG TAB PO ×2 (09:06→15:54)
[2019-01-25] MEDS: Sertraline 25 MG TAB PO (09:06)
[2019-01-25] MEDS: glipiZIDE 5 MG TAB PO (09:06)
[2019-01-25] MEDS: Atorvastatin 40 MG TAB PO (09:06)
[2019-01-25] MEDS: Nystatin POWDER 60 GM JAR TP ×2 (09:09→19:51)
[2019-01-25] MEDS: Normal Saline Flush 10 ML SYR IVP ×3 (09:09→16:15)
--- NOTE | 2019-01-25 09:53 | PDOC.CMIN ---
Care Management Initial Assess REASON FOR HOSPITALIZATION:: COPD Exacerbation PAST MEDICAL HISTORY/PAST SURGICAL HISTORY:: H/O cardiac catheterization, Total replacement of hip, History of Surgical Procedure PREVIOUS FUNCTIONAL STATUS/SOCIAL/FAMILY SUPPORTS:: Stacey resides at [place] with her dog Buttons. 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 She reports supportive folks in her life; José Doan of [facility], Madison from [facility] and Jeanne her friend. No family supports provided. CURRENT FUNCTIONAL STATUS:: Stacey was sleeping soundly when LOLIS and Dr. Mejias attempted to meet with her in the morning. In the afternoon, Stacey was ambulating to the commode when CM attempted to meet with her. Late afternoon, CM was able to connect with Stacey who was sitting on the side of her bed, pleasant in interaction. She shared no concerns about discharging but did state she was looking forward to returning home as soon as possible. She reported enjoying working with Dr. Mejias and being helpful she could have at least weekly nursing with Tanya. ADVANCE DIRECTIVES:: COLST per October note of Dr. 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 PATIENT/FAMILY EDUCATION NEEDS:: Review of discharge instructions, discuss Ask Me Three. ANTICIPATED BARRIERS TO DISCHARGE:: None identified. TRANSPORTATION:: Via private vehicle. PLAN:: Stacey will continue to be closely monitored and treated per MD. CM will continue to follow. She will resume community based services and follow up with her PCP. Undetermined if she will have new orders for [facility] on discharge. Transportation via private vehicle with her caregiver.
--- NOTE | 2019-01-25 11:09 | CHAPLAIN ---
Stacey and I remembered each other from her last admission. She said she is feeling better, but she was coughing a lot, out of breath and not able to walk to the bathroom because she felt weak. After she was hospitalized last time, Stacey said she recovered enough to walk her dog and walk from her apartment to the [employer]. Now she is feeling very weak again, she said. Stacey's friend Madison will be in to visit her. Madison lives with her and provides care, Stacey said.
--- NOTE | 2019-01-25 12:52 | PHARADMIT ---
Admission Pharmacy Clinical Review COPD EXACERBATION, CHF Code Status DNR/DNI Current Weight Wgt- 102 kg Renally Cleared and Narrow Therapeutic Index Meds CrCl~ 29.7mL/min Meds-OK QTc Value / Action Taken QTc-469 (Lasix, Sertraline ) BP Control, Fever BP- 154/56 Tmax- 37C Electrolytes reviewed Na- 137 K+4.1 DVT Prophylaxis Pentoxifylline, Opiate Usage / Scheduled Bowel Regimen Ordered No No Plt/SCr for Heparin / Enoxaparin Plts-2215 SCr-1.54 INR for Warfarin NA H/H stable, WBC/Bands H&H- 11.0/34.7 WBC- 10.00 Antibiotic appropriateness Rocephin, (for Bronchitis ?) Cultures and Sensitivities none Surgical ABX d/c within 24 hr na DM control / Insulin Dosing BG- 526 Glipizide Aspart, Detemir Heart Failure (Check EF%) (MONICA's, B-Block, Diuretics) EF-35% Bisoprolol, Lasix, Spironolactone IV to PO Switch No Home Meds Reviewed Yes Home Meds Not Ordered Losartan, Metformin, Ketoconazole crm, Symbicoort, Clotrimazole Crm, TAC Crm Comments
--- NOTE | 2019-01-25 14:37 | INITIAL_ITS ---
Care Management Initial Assess REASON FOR HOSPITALIZATION:: COPD Exacerbation PAST MEDICAL HISTORY/PAST SURGICAL HISTORY:: H/O cardiac catheterization, Total replacement of hip, History of Surgical Procedure PREVIOUS FUNCTIONAL STATUS/SOCIAL/FAMILY SUPPORTS:: Stacey resides at [facility] with her dog Buttons. 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 She reports supportive folks in her life; José Doan of [facility], Madison from [facility] and Jeanne her friend. No family supports provided. CURRENT FUNCTIONAL STATUS:: Stacey was sleeping soundly when LOLIS and Dr. Mejias attempted to meet with her in the morning. In the afternoon, Stacey was ambulating to the commode when CM attempted to meet with her. Late afternoon, CM was able to connect with Stacey who was sitting on the side of her bed, pleasant in interaction. She shared no concerns about discharging but did state she was looking forward to returning home as soon as possible. She reported enjoying working with Dr. Mejias and being helpful she could have at least weekly nursing with Tanya. ADVANCE DIRECTIVES:: COLST per October note of Dr. Mejias; LOLIS requested copy through [facility], AD on file at [facility]; José Doan as agent, Jeanne Melgar as alternate Has patient been provided with information about the portal?: Yes Did the patient sign up for the portal?: No CODE STATUS:: DNR/DNI INSURANCE COVERAGE / FINANCIAL ISSUES:: Medicare CURRENT HOME/COMMUNITY SERVICES/EQUIPMENT:: Raised toilet seat, grab bars, tub seat/bench, hand held shower, motorized wheelchair, wheeled walker, glucometer, oxygen therapy, homemaker services; [facility]: Commercial Loan Officer: Lida Fishman RN through [facility], complex care nurse, [facility], handicap accessible [facility], Palliative Care PRIMARY CARE PHYSICIAN:: Gissel Carbone POTENTIAL DISCHARGE NEEDS:: Coordinated discharge with resumption of service supports, follow up appointments, Palliative Care-update of COLST or provision of document. PATIENT/FAMILY EDUCATION NEEDS:: Review of discharge instructions, discuss Ask Me Three. ANTICIPATED BARRIERS TO DISCHARGE:: None identified. TRANSPORTATION:: Via private vehicle. PLAN:: Stacey will continue to be closely monitored and treated per MD. CM will continue to follow. She will resume community based services and follow up with her PCP. Undetermined if she will have new orders for [facility] on discharge. Transpo rtation via private vehicle with her caregiver.
--- NOTE | 2019-01-25 15:05 | PGE_ITS ---
Date of Service Date of service: 01/25/19 Time of Service: 15:01 Assessment and Plan (1) COPD (chronic obstructive pulmonary disease): Current visit: Yes Status: Chronic Acute Exacerbation of Chronic Obstructive Pulmonary Disease. Continue Ceftriaxone day #2, Steroids, frequent nebs, and IGC. Monitor closely. Supplemental Oxygen and BiPAP as needed. (2) CHF (congestive heart failure): Current visit: Yes Status: Chronic Biventricular CHF, with LVEF 35%. Dilated Cardiomyopathy of Unclear Etiology. Last ECHO 04/2018. Appears euvolemic, continue home regimen of diuretics, BB, and Spironolactone. Creatinine appears mildly above baseline - hold ARB. Monitor daily weights, I/O's. (3) Hypertension: Current visit: No Status: Chronic Continue BB, Spironolactone. ARB on hold as above. (4) Insulin dependent diabetes mellitus: Current visit: No Status: Chronic Continue basal insulin and sliding scale, and initiate pre-meal carb counting coverage as well. Monitor blood sugars carefully as patient has a history of steroid induced hypoglycemia. (5) DVT prophylaxis: Current visit: Yes Status: Acute SC Heparin, PPI for GI Prophylaxis. (6) Advance directive on file: Current visit: Yes Status: Acute DNR/DNI. Subjective Interval history since last seen: 73 year old woman with a prior history of COPD, admitted from [facility] Emergency Department with a diagnosis of Acute COPD Exacerbation. Ms. Buenrostro has a prior history of COPD and PHTN. She also suffers from IDDM, Dilated CMP with an LVEF of 35%, GERD, HTN, and nonobstructive CAD. She initially presented to the ED 4 days prior to her admission with complains of dyspnea. She was treated with steroids and macrolide therapy (Zpak). Unfortunately her medications were not taken as prescribed, and she returned with worsening dyspnea, and found upon presentation to be dyspneic. She initially required therapy with BiPAP, and was given additional antibiotics and steroids, then referred for admission. This morning the patient reports continued dyspnea but improved since presentation. No overnight events reported. Afebrile. Exam Narrative Exam Narrative: General: Patient appears comfortable, AAOX3, NAD Neck: Supple CV: Regular, nontachycardic, S1S2, No rubs, murmurs, or gallops. Pulmonary: Clear to auscultation bilaterally, no crackles, wheezing, or rhonchi Abdomen: + Bowel Sounds, soft, nontender, nondistended Vascular: No lower extremity edema Neurologic: CN II-XII grossly intact. No focal deficits. Psych: Normal mood and affect. Objective Objective Clinical Data: Abnormal lab results 01/24/19 01/24/19 01/24/19 Range/Units 15:33 15:40 15:40 RBC 3.53 L (4.00-5.20) m/cumm Hgb 11.0 L (12.0-15.5) g/dL Hct 34.7 L (36.0-46.0) % MCV 98.3 H (80-95) fL MCHC 31.7 L (32.0-36.0) g/dL RDW 15.0 H (11.7-14.6) % MPV 11.5 H (8.0-11.0) fL Absolute Neutrophils 9.20 H (1.2-6.7) k/cumm Absolute Lymphocytes 0.60 L (1.2-3.4) k/cumm pO2 58 L (83-108) mmHg O2 Saturation 90 L (94-98) % Anion Gap 12.1 H (3-11) mmol/L BUN 33 H D (7-18) mg/dL Creatinine 1.54 H (0.55-1.02) mg/dL Glucose 380 H D (70-100) mg/dL AST 14 L (15-37) U/L NT-Pro-B Natriuret Pep 1655 H ( - 299) pg/mL Albumin 3.3 L (3.4-5.0) g/dL 01/24/19 Range/Units 23:25 RBC (4.00-5.20) m/cumm Hgb (12.0-15.5) g/dL Hct (36.0-46.0) % MCV (80-95) fL MCHC (32.0-36.0) g/dL RDW (11.7-14.6) % MPV (8.0-11.0) fL Absolute Neutrophils (1.2-6.7) k/cumm Absolute Lymphocytes (1.2-3.4) k/cumm pO2 (83-108) mmHg O2 Saturation (94-98) % Anion Gap (3-11) mmol/L BUN (7-18) mg/dL Creatinine (0.55-1.02) mg/dL Glucose 526 H* D (70-100) mg/dL AST (15-37) U/L NT-Pro-B Natriuret Pep ( - 299) pg/mL Albumin (3.4-5.0) g/dL Vital Signs Temperature 36.6 C 01/25/19 11:45 Temperature Source Tympanic 01/25/19 11:45 Pulse 54 L 01/25/19 11:45 Pulse Rhythm Regular 01/25/19 09:22 Pulse 69 01/24/19 17:31 Respiratory Rate 20 01/25/19 11:45 Respiratory Effort 01/25/19 09:22 Respiratory Depth Normal 01/25/19 09:22 Respiratory Pattern Normal 01/25/19 09:22 Blood Pressure 149/74 H 01/25/19 11:45 Blood Pressure Mean 80 01/24/19 17:31 Blood Pressure Position Sitting 01/24/19 15:39 Pulse Oximetry 96 01/25/19 11:45 Oxygen Delivery Method Hi Flow Nasal Cannula 01/25/19 11:45 Oxygen Flow Rate 35 01/25/19 11:45 Fraction of Inspired Oxygen (FIO2) 44 01/25/19 11:45 Pain Level 0 01/24/19 18:02 Comment 01/25/19 07:26 Intake & Output 01/24/19 01/25/19 01/25/19 23:59 11:59 23:59 Intake Total 100 / 100 360 / 360 Output Total 450 / 450 400 / 400 Balance -350 / -350 -40 / -40 Weight 105.7 kg 102 kg Intake: IV 100 / 100 Oral 360 / 360 Output: Urine 450 / 450 400 / 400 Other: Urine Color Yellow Yellow Urine Appearance Clear Clear Urine Odor None Comment urine mixed wtih stool Stool Size Small Stool Characteristics Soft Voiding Methods Bedside Commode Bedside Commode Laboratory Results WBC 10.00 k/cumm (4.4-10.8) 01/24/19 15:40 RBC 3.53 m/cumm (4.00-5.20) L 01/24/19 15:40 Hgb 11.0 g/dL (12.0-15.5) L 01/24/19 15:40 Hct 34.7 % (36.0-46.0) L 01/24/19 15:40 MCV 98.3 fL (80-95) H 01/24/19 15:40 MCH 31.2 pg (27.0-33.0) 01/24/19 15:40 MCHC 31.7 g/dL (32.0-36.0) L 01/24/19 15:40 RDW 15.0 % (11.7-14.6) H 01/24/19 15:40 Plt Count 221 x1000/uL (130-400) 01/24/19 15:40 MPV 11.5 fL (8.0-11.0) H 01/24/19 15:40 Immature Gran % 0.0 01/24/19 15:40 Neutrophils % 92.0 01/24/19 15:40 Lymphocytes % 6.0 01/24/19 15:40 Monocytes % 2.0 01/24/19 15:40 Eosinophils % 0.0 01/24/19 15:40 Basophils % 0.0 01/24/19 15:40 Absolute Neutrophils 9.20 k/cumm (1.2-6.7) H 01/24/19 15:40 Absolute Lymphocytes 0.60 k/cumm (1.2-3.4) L 01/24/19 15:40 Absolute Monocytes 0.20 k/cumm (0.11-0.7) 01/24/19 15:40 Absolute Eosinophils 0.00 k/cumm (0.0-0.7) 01/24/19 15:40 Absolute Basophils 0.00 k/cumm (0.0-0.2) 01/24/19 15:40 Differential Comment Manual differential 01/24/19 15:40 RBC Morphology See below 01/24/19 15:40 Polychromasia Present 01/24/19 15:40 Ovalocytes 2+ 01/24/19 15:40 Sample Site Right radial 01/24/19 15:33 pCO2 36 mmHg (34-47) 01/24/19 15:33 pO2 58 mmHg (83-108) L 01/24/19 15:33 O2 Saturation 90 % (94-98) L 01/24/19 15:33 ABG pH 7.45 (7.35-7.45) 01/24/19 15:33 ABG HCO3 25 mmol/L (22-28) 01/24/19 15:33 ABG Total CO2 23 mmol/L (22-29) 01/24/19 15:33 ABG Base Excess 1.4 mmol/L (-3-3) 01/24/19 15:33 Oxygen Liter Flow 5 L 01/24/19 15:33 Sodium 137 mmol/L (136-145) 01/24/19 15:40 Potassium 4.1 mmol/L (3.5-5.1) 01/24/19 15:40 Chloride 99 mmol/L (98-107) 01/24/19 15:40 Carbon Dioxide 25.9 mmol/L (21.0-32.0) 01/24/19 15:40 Anion Gap 12.1 mmol/L (3-11) H 01/24/19 15:40 BUN 33 mg/dL (7-18) H D 01/24/19 15:40 Creatinine 1.54 mg/dL (0.55-1.02) H 01/24/19 15:40 Estimated GFR/1.73 m2 33.11 (mL/min/1.73m2) 01/24/19 15:40 Glucose 526 mg/dL (70-100) H* D 01/24/19 23:25 Calcium 8.8 mg/dL (8.5-10.1) 01/24/19 15:40 Total Bilirubin 0.4 mg/dL (0.2-1.0) 01/24/19 15:40 AST 14 U/L (15-37) L 01/24/19 15:40 ALT 28 U/L (12-78) 01/24/19 15:40 Alkaline Phosphatase 85 U/L (46-116) 01/24/19 15:40 Troponin I < 0.02 ng/mL (0.00-0.06) 01/24/19 15:40 NT-Pro-B Natriuret Pep 1655 pg/mL (-299) H 01/24/19 15:40 Total Protein 7.2 g/dL (6.4-8.2) 01/24/19 15:40 Albumin 3.3 g/dL (3.4-5.0) L 01/24/19 15:40 Objective Narrative Objective Narrative: Exam(s) 01/24/2019 a RAD:XR portable chest AP SYMPTOM/DIAGNOSIS: WORSENING SOB WITH KNOWN PNEUMONIA PORTABLE AP CHEST: Comparison is made with 01/21/19. The heart size and pulmonary vasculature are stable and within normal limits. The lungs show no focal consolidating infiltrates or effusions. No pneumothorax is identified. No acute osseous abnormality is identified. IMPRESSION: No definite acute pulmonary process.
[2019-01-25] MEDS: cefTRIAXone 1 GM/50 ML BAG IVPB (15:59)
[2019-01-25] MEDS: Pantoprazole 40 MG VIAL IVP (16:15)
[2019-01-25] MEDS: Heparin 5,000 UNITS/ML VIAL 5000 UNITS SC (16:18)
[2019-01-25] MEDS: Budesonide 0.5 MG/2 ML UPD VIAL UPD (19:53)
[2019-01-25] MEDS: Gabapentin 100 MG CAP PO (21:34)
[2019-01-26 00:01] VITALS: PULSE 90; RESP 20; RESP 8; O2SAT 93
[2019-01-26] MEDS: Albuterol/Ipratropium 3 ML UPD VIAL UPD ×3 (00:01→11:42)
[2019-01-26] MEDS: Normal Saline Flush 10 ML SYR IVP ×2 (00:02→08:20)
[2019-01-26] MEDS: Heparin 5,000 UNITS/ML VIAL 5000 UNITS SC ×3 (00:02→15:42)
[2019-01-26 06:38] VITALS: RESP 4
[2019-01-26 06:50] VITALS: O2SAT 93
[2019-01-26 06:58] LABS: Absolute Basophil Count 0.01 k/cumm (0.0-0.2); Absolute Lymphocyte Count 0.83 k/cumm (1.2-3.4); Absolute Monocyte Count 0.43 k/cumm (0.11-0.7); Absolute Neutrophil Count 6.96 k/cumm (1.2-6.7); Basophils % 0.1; HCT 34.2 % (36.0-46.0); HGB 11.1 g/dL (12.0-15.5); Immature Grans % 1.2; Mean Corp. HGB Concentration 32.5 g/dL (32.0-36.0); Mean Corpuscular Hemoglobin 31.1 pg (27.0-33.0); Mean Corpuscular Volume 95.8 fL (80-95); Mean Platelet Volume 10.3 fL (8.0-11.0); Monocytes % 5.2; Neutrophils % 83.5; Platelet Count 218 x1000/uL (130-400); RBC 3.57 m/cumm (4.00-5.20); RBC Distribution Width 14.3 % (11.7-14.6); White Blood Cell Count 8.33 k/cumm (4.4-10.8)
[2019-01-26 07:09] LABS: Anion Gap 9.8 mmol/L (3-11); BUN 30 mg/dL (7-18); CO2 28.2 mmol/L (21.0-32.0); CREATININE 1.33 mg/dL (0.55-1.02); Calcium 8.9 mg/dL (8.5-10.1); Chloride 100 mmol/L (98-107); Estimated GFR 39.22 (mL/min/1.73m2); Glucose 229 mg/dL (70-100); Magnesium 2.1 mg/dL (1.8-2.4); Potassium 3.8 mmol/L (3.5-5.1); Sodium 138 mmol/L (136-145)
[2019-01-26 07:24] VITALS: BP 161/68; PULSE 64; RESP 20; TEMP 36.4; O2SAT 92
[2019-01-26 07:40] VITALS: O2SAT 92
[2019-01-26] MEDS: Budesonide 0.5 MG/2 ML UPD VIAL UPD (07:41)
[2019-01-26] MEDS: Spironolactone 25 MG TAB 12.5 MG PO (08:20)
[2019-01-26] MEDS: Insulin Aspart 300 UNITS/3 ML PEN SC ×4 (08:22→11:57)
[2019-01-26] MEDS: Atorvastatin 40 MG TAB PO (08:23)
[2019-01-26] MEDS: glipiZIDE 5 MG TAB PO (08:23)
[2019-01-26] MEDS: Bisoprolol 5 MG TAB 10 MG PO (08:23)
[2019-01-26] MEDS: guaiFENesin/CODEINE PHOSPHATE 10 ML CUP PO (08:23)
[2019-01-26] MEDS: Sertraline 25 MG TAB PO (08:23)
[2019-01-26] MEDS: Potassium Chloride 20 MEQ TABCR PO (08:23)
[2019-01-26] MEDS: Furosemide 40 MG TAB PO ×2 (08:23→15:41)
[2019-01-26] MEDS: methylPREDNISolone SUCC 40 MG VIAL IV ×2 (08:24)
[2019-01-26] MEDS: Nystatin POWDER 60 GM JAR TP (08:24)
[2019-01-26] MEDS: Pantoprazole 40 MG VIAL IVP (08:24)
[2019-01-26] MEDS: Losartan 25 MG TAB 50 MG PO (08:45)
--- NOTE | 2019-01-26 10:14 | DSE_ITS ---
Date of service: 01/26/19 Time of Service: 10:02 DS: Diagnosis Discharge Diagnosis (1) COPD (chronic obstructive pulmonary disease): Status: Chronic (2) CHF (congestive heart failure): Status: Chronic (3) Hypertension: Status: Chronic (4) Insulin dependent diabetes mellitus: Status: Chronic (5) Advance directive on file: Status: Acute Discharge Plan Disposition Patient Disposition: HOME Condition: Improving Discharge Details Reason For Visit: COPD EXCERBATION Admit Date/Time: 01/24/19 17:23 Admit Provider: Dashawn Alonso Attending Provider: Dashawn Alonso Primary Care Provider: Gissel Carbone Hospital Course Hospital Course: Chief Complaint: Dyspnea HPI: 73 year old woman with a prior history of COPD, admitted from [facility] Emergency Department with a diagnosis of Acute COPD Exacerbation. Ms. Buenrotsro has a prior history of COPD and PHTN. She also suffers from IDDM, Biventricular Dilated CMP with an LVEF of 35%, GERD, HTN, and nonobstructive CAD. She initially presented to the ED 4 days prior to her admission with complains of dyspnea. She was treated with steroids and macrolide therapy (Zpak). Unfortunately her medications were not taken as prescribed, and she returned with worsening dyspnea, and found upon presentation to be dyspneic. She initially required therapy with BiPAP, and was given additional antibiotics and steroids, then referred for admission. On the morning after admission Ms. Buenrostro reported continued dyspnea but improved since presentation, and this morning she actually states that she is at her baseline. Respiratory reports that she is back to her baseline home oxygen requirement. He exam has improved dramatically. The patient is requesting to be discharged today. No overnight events reported. Afebrile. Hospital Course: (1) COPD (chronic obstructive pulmonary disease): Acute Exacerbation of Chronic Obstructive Pulmonary Disease. Patient has shown a faster than expected recovery, and is requesting to be discharged. It would be preferable to extend her one additional day of IV steroids, but as Ms. Buenrostro is insistent she will be discharged to conclude her treatment as an outpatient. She was maintained on 2 days of Ceftriaxone, and will conclude therapy with an oral cephalosporin (Cefpodoxime if insurance coverage is not an issue), and finish a course of Prednisone. Also recommend frequent nebs, and IGC. Patient to follow- up with her new PCP, scheduled appointment in 4 days. (2) CHF (congestive heart failure): Biventricular CHF, with LVEF 35%. Dilated Cardiomyopathy of Unclear Etiology. Last ECHO 04/2018. Appears euvolemic, continue home regimen of diuretics, BB, and Spironolactone. ARB restarted this morning. (3) Hypertension: Continue BB, Spironolactone. ARB restarted as above. (4) Insulin dependent diabetes mellitus: Continue basal insulin. Patient recommended to monitor sugars at home closely as she has a history of steroid induced hyperglycemia. (5) DVT prophylaxis: Patient was maintained on SC Heparin, PPI for GI Prophylaxis. (6) Advance directive on file: DNR/DNI. Ms. Buenrostro follows with Palliative Medicine, and will meet with Dr. Mejias prior to her discharge. She will also be scheduled for Home Health with Visiting Nursing. Home Meds and New Rx's Prescriptions: New codeine-guaifenesin 10-100 mg/5 mL Liquid 10 ml PO Q4H PRN PRNQty: 300 RF: 0 Nexium Packet [address] for susp in packet 40 mg PO DAILY Qty: 30 RF: 0 prednisone 10 mg tablet 10 mg PO DAILY Qty: 51 RF: 0 cefpodoxime 200 mg tablet 200 mg PO BID Qty: 7 RF: 0 Continued sertraline 25 mg tablet 25 mg PO DAILY RF: 0 levalbuterol tartrate [Xopenex HFA] 15 GM HFA aerosol inhaler 45 mcg Inhalation Q4H PRN Qty: 1 RF: 0 atorvastatin 40 MG tablet 40 mg PO DAILY Qty: 30 RF: 11 spironolactone 25 MG tablet 12.5 mg PO DAILY Qty: 30 RF: 11 bisoprolol fumarate 5 mg tablet 10 mg PO DAILY Qty: 60 RF: 11 triamcinolone acetonide 5 GM paste 1 applic Topical PRN PRNRF: 0 nitroglycerin [Nitrostat] 0.4 MG tablet, sublingual 0.4 mg PO PRN PRNRF: 0 losartan 100 MG tablet 100 mg PO DAILY RF: 0 hydroxyzine pamoate [Vistaril] 25 MG capsule 25 mg PO DAILY PRNRF: 0 ketoconazole 30 GM cream 60 gm Topical BID Qty: 1 RF: 0 acetaminophen 650 MG tablet extended release 650 mg PO Q4H PRN (Reason: Pain) Qty: 30 RF: 0 metformin 1,000 MG tablet 1,000 mg PO DAILY RF: 0 gabapentin 100 MG capsule 100 mg PO HS RF: 0 clotrimazole 15 GM cream 1 applic Topical TID RF: 0 glipizide 5 MG tablet 5 mg PO DAILY RF: 0 Pentoxifylline 400 MG Tablet.Er 400 mg PO TID RF: 0 furosemide 40 MG tablet 40 mg PO BID DIURETIC RF: 0 Levemir U-100 Insulin 100 UNIT/ML solution 60 unit subcut QPM Qty: 10 RF: 0 Symbicort 160-4.5 mcg/actuation Hfa Aerosol Inhaler 2 puff Inhalation BID Qty: 1 RF: 0 Changed ipratropium-albuterol 3 ML solution for nebulization 3 ml Inhalation Q4H PRNQty: 0 RF: 0 Discontinued amoxicillin-pot clavulanate [Augmentin] 875-125 mg tablet 1 tab PO BID Qty: 14 RF: 0 Discharge Instructions Additional Instructions: Please see your primary care provider over the next week. Take your antibiotics, steroids, and nebulizers as prescribed. Monitor your blood sugar - it is normal to have higher numbers as you are on steroids right now, but over the next week your values should come down. If your blood sugars are consistently over 300 please contact your primary care provider. Stand Alone Forms: Nursing Discharge Form Referrals: Carlin Rojas NP [NURSE PRACTITIONER] - 02/07/19 3:15 pm Activity:: No Strenuous Activity Equipment/Supplies:: No Equipment Needed Diet:: Carb Counting Discharge Orders Discharge Orders: Discharge Order (Routine); Ordered 01/26/19 Ordered By: Erik Linares Exam Narrative Exam Narrative: General: Patient appears comfortable, AAOX3, NAD Neck: Supple CV: Regular, nontachycardic, S1S2, No rubs, murmurs, or gallops. Pulmonary: Decreased breath sounds diffusely, but with vastly improved air entry today. Wheezing appears nearly resolved. No rhonchi. Minimal bibasilar crackles. Abdomen: + Bowel Sounds, soft, nontender, nondistended, obese in contour Vascular: B/l LE edema Psych: Normal mood and affect. DS: Data Vitals/I&O Vitals and I&O: Vital Signs Temperature 36.4 C L 01/26/19 07:24 Temperature Source Tympanic 01/26/19 07:24 Pulse 64 05/02/19 07:24 Pulse Rhythm Regular 01/26/19 09:52 Pulse 69 01/24/19 17:31 Respiratory Rate 20 01/26/19 07:24 Respiratory Effort Non-Labored 01/26/19 09:52 Respiratory Depth Normal 01/26/19 09:52 Respiratory Pattern Normal 01/26/19 09:52 Blood Pressure 161/68 H 01/26/19 07:24 Blood Pressure Mean 80 01/24/19 17:31 Blood Pressure Position Sitting 01/24/19 15:39 Pulse Oximetry 92 L 01/26/19 07:24 Oxygen Delivery Method Nasal Cannula 01/26/19 07:24 Oxygen Flow Rate 4 01/26/19 07:24 Fraction of Inspired Oxygen (FIO2) 44 01/25/19 15:34 Pain Level 0 01/26/19 07:24 Comment 01/25/19 07:26 Intake & Output 01/25/19 01/25/19 01/26/19 11:59 23:59 11:59 Intake Total 360 / 820 460 / 820 460 / 460 Output Total 400 / 2000 1600 / 2000 1400 / 1400 Balance -40 / -1180 -1140 / -1180 -940 / -940 Weight 102 kg 100.9 kg Intake: IV 100 / 100 10 / 10 Oral 360 / 720 360 / 720 450 / 450 Output: Urine 400 / 2000 1600 / 2000 1400 / 1400 Other: Urine Color Yellow Yellow Yellow Urine Appearance Clear Clear Clear Urine Odor Normal Comment urine mixed wtih stool Stool Size Small Small Stool Characteristics Soft Mucoid Voiding Methods Bedside Commode Toilet Toilet Completed studies during hospitalization [Text1]: Exam(s) a RAD:XR portable chest AP SYMPTOM/DIAGNOSIS: WORSENING SOB WITH KNOWN PNEUMONIA PORTABLE AP CHEST: Comparison is made with 01/21/19. The heart size and pulmonary vasculature are stable and within normal limits. The lungs show no focal consolidating infiltrates or effusions. No pneumothorax is identified. No acute osseous abnormality is identified. IMPRESSION: No definite acute pulmonary process. Labs on day of discharge: Labs from last 24 hours 01/26/19 01/26/19 06:48 06:48 WBC 8.33 RBC 3.57 L Hgb 11.1 L Hct 34.2 L MCV 95.8 H MCH 31.1 MCHC 32.5 RDW 14.3 Plt Count 218 MPV 10.3 Immature Gran % 1.2 Neutrophils % 83.5 Lymphocytes % 10.0 Monocytes % 5.2 Eosinophils % 0.0 Basophils % 0.1 Absolute Neutrophils 6.96 H Absolute Lymphocytes 0.83 L Absolute Monocytes 0.43 Absolute Eosinophils 0.00 Absolute Basophils 0.01 Sodium 138 Potassium 3.8 Chloride 100 Carbon Dioxide 28.2 Anion Gap 9.8 BUN 30 H Creatinine 1.33 H Estimated GFR/1.73 m2 39.22 Glucose 229 H D Calcium 8.9 Magnesium 2.1 Rapid Influenza A & B Final 01/21/19 RESULT NEGATIVE FOR FLU A AND B ANTIGENS. [facility] Medical History CHF (congestive heart failure) (Chronic) COPD (chronic obstructive pulmonary disease) (Chronic) Palliative care patient (Chronic) Dependence on continuous supplemental oxygen (Chronic) Chronic anxiety (Chronic) Counseling regarding advance directives and goals of care (Chronic) Acute and chronic respiratory failure with hypoxia (Acute) Insulin dependent diabetes mellitus (Chronic) Acute on chronic systolic (congestive) heart failure (Chronic) COPD exacerbation (Acute) Hypertension (Chronic) History of EKG (Chronic) Angina pectoris (Chronic) History of COPD (Chronic) History of asthma (Chronic) Gastroesophageal reflux disease (Chronic) Lower extremity edema (Chronic) Hyperlipidemia (Chronic) History of diabetes mellitus (Chronic) Osteoarthritis of right hip (Chronic) Surgical History H/O cardiac catheterization (Chronic) 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) History of Surgical Procedure (Chronic) Family History Mother Diabetes Father Myocardial infarction Brother Cancer Social History Smoking/Tobacco Use Status: Former Tobacco Use Tobacco: How many years used: 50 Alcohol Intake: current Alcohol Intake frequency: holidays/special occasions only Drug use: Never Substance use type: does not use Adopted: No Caregiver/Support person: No Foster care: No Household members: none Housing: apartment Number of Children: 0 number of grandchildren: 0 Pets and animals: Yes Pets and animals: dog(s) Sexually active: No What type of physical activity do you participate in: walking and occasional ex ercise Duration: < 15 minutes/day Do you feel safe at home: Yes Do you feel safe in your relationship?: Yes
--- NOTE | 2019-01-26 10:41 | PDOC.HHF2F ---
1. Encounter Date and Reason I certify that JONNY MUNGUIA was seen by Erik Linares on 01/26/19 and that I had a [id number] encounter with this patient that meets the physician face to face encounter requirements. 2. Clinical Findings Supporting Skilled Need and Homebound Status I certify that home health services are medically necessary, include either intermittent jail and/or physical/speech therapy, and that this patient is homebound in that absences from the home require considerable and taxing effort and are infrequent or of short duration, or are attributable to the need to receive medical care. [X] (a) Attached documentation from encounter provides clinical findings supporting skilled need and homebound status (including what assistance patient requires to leave the home). The encounter with the patient was in whole, or in part, for the following medical condition, which is the primary reason for home health care: COPD EXCERBATION Prison: New Medication check, Vitals, Pulmonary Exam. Physical Therapy: Speech Therapy: Homebound: 3. Certification and Authentication I certify that I composed the above information based on my clinical judgement relating to this patient's medical condition and, if applicable, clinical findings communicated to me by the NPP or inpatient physician who performed the Home Health Referral. All further orders will be obtained through (Community Based Physician - PCP)
--- NOTE | 2019-01-26 13:54 | PDOC.CMDIS ---
LACE Index Scoring Tool - Questions: Length of Stay (in days): 2 Acuity (Admit via E.D.?): Yes Comorbidities: Congestive Heart Failure, Chronic Pulmonary Disease E.D. Visits: 4 - Answers: Total Score: 14 Risk of Readmission: High Risk Care Management Discharge Reason for Hospitalization: COPD Exacerbation Discharge Plan: Stacey will continue to be closely monitored and treated per MD. CM will continue to follow. She will resume community based services and follow up with her PCP, and see Dr. Mejias of Palliative Care prior to discharge. Stacey will have new orders for [facility]/RN upon discharge as well. Transportation via private vehicle with her caregiver. Patient/Family Education Needs: Review of discharge instructions; discuss Ask Me Three. Services Needed at Discharge: Home Health Care Services (New RN), Homemaking Services ([facility] Mod with CM: Britt ), Oxygen Therapy (Resumption)
--- NOTE | 2019-01-26 14:26 | CMDISCH_ITS ---
LACE Index Scoring Tool - Questions: Length of Stay (in days): 2 Acuity (Admit via E.D.?): Yes Comorbidities: Congestive Heart Failure, Chronic Pulmonary Disease E.D. Visits: 4 - Answers: Total Score: 14 Risk of Readmission: High Risk Care Management Discharge Reason for Hospitalization: COPD Exacerbation Discharge Plan: Stacey will continue to be closely monitored and treated per MD. CM will continue to follow. She will resume community based services and follow up with her PCP, and see Dr. Mejias of Palliative Care prior to discharge. Stacey will have new orders for [facility]/RN upon discharge as well. Transportation via private vehicle with her caregiver. Patient/Family Education Needs: Review of discharge instructions; discuss Ask Me Three. Services Needed at Discharge: Home Health Care Services (New RN), Homemaking Services ([facility] Mod with CM: Britt ), Oxygen Therapy (Resumption)
--- NOTE | 2019-01-26 14:49 | W.PALLCONSUL ---
Date of service: 01/26/19 History of Present Illness Chief Complaint: copd exacerbation Narrative: Was seen in Er the weekend previous to admission. At that visit, Stacey was prescribed azithromycin. Her friend/caregiver Madison did not give Stacey the medication as prescribed by the ER physician. Instead, she spaced it out to make it last because they didn't give her the right amount of pills. I had gone to see Stacey at her house on 01/25 and found Madison was there. She explained to me that Stacey was hospitalized, etc. Stacey was asleep on 01/25 when I first went to see her, immediately upon leaving Stacey's apartment. I did not do an exam on 01/25 as Madison explained Stacey had not slept much of the previous few days. I saw her today in addition to the unsuccessful visits x 2 yesterday. (Home and inpt). Today, Stacey was sitting up at the side of her bed. She was animated, breathing comfortably, not coughing. She looked to be already back at baseline. She was hoping to go home after my visit. Consults Consult date: 01/26/19 Assessment and Plan (1) CHF (congestive heart failure): Current visit: No Status: Chronic right-sided heart failure advised she stay active return to some regular exercise, perhaps by walking dog, perhaps by PT program she will let me know (2) COPD (chronic obstructive pulmonary disease): Current visit: No Status: Chronic didn't take zpack as directed due to misunderstanding by friend Madison who doles out her medication to her she uses her oxygen 24/ avoids inhalants stopped smoking long ago. uses her inhalers MOST of the time as directed might benefit from pulm rehab (3) Palliative care patient: Current visit: No Status: Chronic now has Madison officically living with her approved [facility] will continue to see her q 3 months overall doing ok note that I saw Stacey 2 days in a row in the hospital (first went to her home on Day #1 where I met with Madison). I did not do exam the first day as she was soundly sleeping. I did spend 45 minutes going to her house, meeting with caregiver, going to hospital, discussing her care with nurse, etc. but did not document as she was asleep. Review of Systems Constitutional Reports fatigue and Reports weakness Eyes Reports requires corrective lenses ENT Reports dental pain and Reports dry mouth Cardiovascular Reports palpitations, Reports dyspnea and Reports dyspnea on exertion Respiratory Reports chest congestion, Reports cough, Reports excessive phlegm production, Reports dyspnea and Reports dyspnea on exertion Gastrointestinal Reports constipation and Reports early satiety Genitourinary Reports urinary incontinence Musculoskeletal Reports back pain and Reports muscle weakness Integumentary/Breasts Reports dry skin Neurologic Reports weakness Psychiatric Reports anxiety, Reports difficulty concentrating, Reports hopelessness and Reports panic attacks Endocrine Reports fatigue and Reports palpitations REPLACED BY [facility] Medical History CHF (congestive heart failure) (Chronic) COPD (chronic obstructive pulmonary disease) (Chronic) Palliative care patient (Chronic) Dependence on continuous supplemental oxygen (Chronic) Chronic anxiety (Chronic) Counseling regarding advance directives and goals of care (Chronic) Acute and chronic respiratory failure with hypoxia (Acute) Insulin dependent diabetes mellitus (Chronic) Acute on chronic systolic (congestive) heart failure (Chronic) COPD exacerbation (Acute) Hypertension (Chronic) History of EKG (Chronic) Angina pectoris (Chronic) History of COPD (Chronic) History of asthma (Chronic) Gastroesophageal reflux disease (Chronic) Lower extremity edema (Chronic) Hyperlipidemia (Chronic) History of diabetes mellitus (Chronic) Osteoarthritis of right hip (Chronic) Surgical History H/O cardiac catheterization (Chronic) 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) History of Surgical Procedure (Chronic) Family History Mother Diabetes Father Myocardial infarction Brother Cancer Social History Smoking/Tobacco Use Status: Former Tobacco Use Tobacco: How many years used: 50 Alcohol Intake: current Alcohol Intake frequency: holidays/special occasions only Drug use: Never Substance use type: does not use Adopted: No Caregiver/Support person: No Foster care: No Household members: none Housing: apartment Number of Children: 0 number of grandchildren: 0 Pets and animals: Yes Pets and animals: dog(s) Sexually active: No What type of physical activity do you participate in: walking and occasional exercise Duration: < 15 minutes/day Do you feel safe at home: Yes Do you feel safe in your relationship?: Yes Exam Const General: cooperative, no acute distress and ill appearing Nutritional Appearance: obese Orientation: alert, awake and oriented x3 HENMT Head: normal to inspection, normocephalic and atraumatic Ears: hearing grossly normal bilaterally General nose exam: external nose normal Face and sinus: dry mucous membranes Teeth and gingiva: abnormal tooth or associated gingiva, caries and poor dentition Eyes Conjunctivae: conjunctivae normal Sclera: sclerae normal Neck Neck: no lymphadenopathy and no JVD Resp Effort & Inspection: normal respiratory effort and able to speak in complete sentences Auscultation: clear to auscultation bilaterally and diminished lung sounds Cardio Jugular venous pressure: no JVD Rate: regular rate Rhythm: regular rhythm Heart Sounds: S1 normal and S2 normal GI Inspection: obesity Palpation: soft Auscultation: normal bowel sounds Skin General skin exam: dry skin and pallor Wounds: no wounds Nails: clubbing Neuro General: alert, awake and oriented x3 Cognition: normal cognition Speech: speech normal Sensory Exam: no sensory deficits noted Extrem General: clubbing and muscle atrophy Psych Appearance: disheveled Mental Status: mental status grossly normal Speech and Movement: speech and movement normal Mood: anxious mood Affect: anxious affect Attitude: cooperative Thought Process: impoverished Insight: fair Judgment: fair Results Last Vital Signs Temp 97.5 F L 01/26/19 07:24 Pulse 64 01/26/19 07:24 Resp 20 01/26/19 07:24 BP 161/68 H 01/26/19 07:24 Pulse Ox 92 L 01/26/19 07:24 Labs : 01/26/19 06:48 01/26/19 06:48 Laboratory Results - last 24 hr 01/26/19 01/26/19 06:48 06:48 WBC 8.33 RBC 3.57 L Hgb 11.1 L Hct 34.2 L MCV 95.8 H MCH 31.1 MCHC 32.5 RDW 14.3 Plt Count 218 MPV 10.3 Immature Gran % 1.2 Neutrophils % 83.5 Lymphocytes % 10.0 Monocytes % 5.2 Eosinophils % 0.0 Basophils % 0.1 Absolute Neutrophils 6.96 H Absolute Lymphocytes 0.83 L Absolute Monocytes 0.43 Absolute Eosinophils 0.00 Absolute Basophils 0.01 Sodium 138 Potassium 3.8 Chloride 100 Carbon Dioxide 28.2 Anion Gap 9.8 BUN 30 H Creatinine 1.33 H Estimated GFR/1.73 m2 39.22 Glucose 229 H D Calcium 8.9 Magnesium 2.1
--- NOTE | 2019-01-26 15:44 | CHAPLAIN ---
Stacey said she is feeling better and her friend Madison will be in to pick her up because she expects to be discharged today.
[2019-01-26 15:49] VITALS: BP 137/71; PULSE 56; RESP 18; TEMP 36.2; O2SAT 94
== END 2019-01-26 16:35 | disposition home or self-care (01) | DRG 192 ==
LOC: ER 17:48 → MS 17:56
PROVIDERS: Admitting Provider General Practice; Emergency Provider Student in an Organized Health Care Education/Training Program; PCP Nurse Practitioner Family; Visit Provider Internal Medicine
DX: J44.1 Chronic obstructive pulmonary disease with (acute) exacerbation (principal); J44.0 Chronic obstructive pulmonary disease with (acute) lower respiratory infection; J20.9 Acute bronchitis, unspecified; Z99.81 Dependence on supplemental oxygen; E11.65 Type 2 diabetes mellitus with hyperglycemia; Z79.4 Long term (current) use of insulin; R06.00 Dyspnea, unspecified; Z51.5 Encounter for palliative care; Z71.3 Dietary counseling and surveillance
CPT/HCPCS: 36415; 80048; 80053; 82805; 82947; 93005; 94640; 96365; 96367; 96375; 99222; 99233; 99239; 99255; 99285; 36600; 71045; 83735; 83880; 84484; 85025; 93010; J0696; J1644; J1815; J2930; J3490; J7620; J7626

== ENCOUNTER 2019-03-09 15:21 | Outpatient (CLI) | payer MEDICARE, SELFPAY ==
--- NOTE | 2019-03-09 16:15 | DI.RAD_ITS ---
SYMPTOM/DIAGNOSIS: SOB, R06.02 CHEST X-RAY: PA and lateral. Comparison 01/24/19 and 01/21/19 Heart size and pulmonary vasculature are within normal limits The lungs are free of infiltrates, effusions or pneumothoraces. Stable degenerative changes are seen in the spine. IMPRESSION: No acute pulmonary process.
== END 2019-03-09 15:41 ==
PROVIDERS: PCP Nurse Practitioner Family; Visit Provider Nurse Practitioner Family
DX: R06.02 Shortness of breath (principal)
CPT/HCPCS: 71046

== ENCOUNTER 2019-04-14 15:53 | Outpatient (REF) | payer MEDICARE, SELFPAY ==
[2019-04-14 19:19] LABS: Anion Gap 13.6 mmol/L (3-11); BUN 36 mg/dL (7-18); CO2 24.4 mmol/L (21.0-32.0); CREATININE 1.47 mg/dL (0.55-1.02); Calcium 9.1 mg/dL (8.5-10.1); Chloride 100 mmol/L (98-107); Estimated GFR 34.84 (mL/min/1.73m2); Glucose 238 mg/dL (70-100); Potassium 4.4 mmol/L (3.5-5.1); Sodium 138 mmol/L (136-145)
== END 2019-04-14 16:13 ==
LOC: NCHCN 15:53
PROVIDERS: PCP Nurse Practitioner Family; Visit Provider Nurse Practitioner Family
DX: N18.3 Chronic kidney disease, stage 3 (moderate) (principal)
CPT/HCPCS: 80048

== ENCOUNTER → 2019-05-03 11:04 | Outpatient (BNVA) | payer MEDICARE, SELFPAY | PROVIDERS: PCP Nurse Practitioner Family; Visit Provider Student in an Organized Health Care Education/Training Program | DX: I42.0 Dilated cardiomyopathy (principal); I25.10 Atherosclerotic heart disease of native coronary artery without angina pectoris; I11.0 Hypertensive heart disease with heart failure; I27.20 Pulmonary hypertension, unspecified; I50.9 Heart failure, unspecified; J44.9 Chronic obstructive pulmonary disease, unspecified; Z87.891 Personal history of nicotine dependence; E11.9 Type 2 diabetes mellitus without complications; Z79.4 Long term (current) use of insulin; Z99.81 Dependence on supplemental oxygen | CPT/HCPCS: 99215 ==

== ENCOUNTER → 2019-05-10 14:09 | Outpatient (BNVA) | payer MEDICARE, SELFPAY | PROVIDERS: PCP Nurse Practitioner Family; Visit Provider Student in an Organized Health Care Education/Training Program | DX: I42.0 Dilated cardiomyopathy (principal); I25.10 Atherosclerotic heart disease of native coronary artery without angina pectoris; I10 Essential (primary) hypertension; I27.20 Pulmonary hypertension, unspecified; J44.9 Chronic obstructive pulmonary disease, unspecified; Z99.81 Dependence on supplemental oxygen; Z87.891 Personal history of nicotine dependence | CPT/HCPCS: 99214 ==

== ENCOUNTER 2019-05-10 15:03 | Outpatient (CLI) | payer MEDICARE, SELFPAY ==
[2019-05-10 15:56] LABS: Abs Immature Grans 0.01 k/cumm (0.0-0.09); Absolute Basophil Count 0.04 k/cumm (0.0-0.2); Absolute Eosinophil Count 0.18 k/cumm (0.0-0.7); Absolute Monocyte Count 0.76 k/cumm (0.11-0.7); Absolute Neutrophil Count 6.08 k/cumm (1.2-6.7); Basophils % 0.4; Eosinophils % 1.9; HCT 39.1 % (36.0-46.0); HGB 12.9 g/dL (12.0-15.5); Immature Grans % 0.1; Lymphocytes % 23.7; Mean Corpuscular Hemoglobin 31.4 pg (27.0-33.0); Mean Corpuscular Volume 95.1 fL (80-95); Mean Platelet Volume 10.8 fL (8.0-11.0); Monocytes % 8.2; Neutrophils % 65.7; Platelet Count 259 x1000/uL (130-400); RBC 4.11 m/cumm (4.00-5.20); RBC Distribution Width 15.2 % (11.7-14.6); White Blood Cell Count 9.27 k/cumm (4.4-10.8)
[2019-05-10 16:50] LABS: ALT 20 U/L (12-78); AST 9 U/L (15-37); Albumin 4.1 g/dL (3.4-5.0); Alkaline Phosphatase 99 U/L (46-116); Anion Gap 12.2 mmol/L (3-11); BUN 34 mg/dL (7-18); Bilirubin, Direct 0.15 mg/dL (0.00-0.20); Bilirubin, Total 0.5 mg/dL (0.2-1.0); CO2 26.8 mmol/L (21.0-32.0); CREATININE 1.68 mg/dL (0.55-1.02); Calcium 9.3 mg/dL (8.5-10.1); Chloride 102 mmol/L (98-107); Estimated GFR 29.87 (mL/min/1.73m2); Glucose 192 mg/dL (70-100); Magnesium 1.6 mg/dL (1.8-2.4); Potassium 3.9 mmol/L (3.5-5.1); Sodium 141 mmol/L (136-145); TSH (W/Ref FT4) 1.86 uIU/mL (0.36-3.74); Total Protein 7.8 g/dL (6.4-8.2)
== END 2019-05-10 15:23 ==
PROVIDERS: PCP Nurse Practitioner Family; Visit Provider Student in an Organized Health Care Education/Training Program
DX: I50.9 Heart failure, unspecified (principal); I42.0 Dilated cardiomyopathy; I25.10 Atherosclerotic heart disease of native coronary artery without angina pectoris; I10 Essential (primary) hypertension; I27.20 Pulmonary hypertension, unspecified; J44.9 Chronic obstructive pulmonary disease, unspecified; Z99.81 Dependence on supplemental oxygen; Z87.891 Personal history of nicotine dependence
CPT/HCPCS: 36415; 80053; 80076; 99214; 83735; 84443; 85025

== ENCOUNTER → 2019-05-17 14:08 | Outpatient (BNVA) | payer MEDICARE, SELFPAY | PROVIDERS: PCP Nurse Practitioner Family; Visit Provider Student in an Organized Health Care Education/Training Program | DX: I42.0 Dilated cardiomyopathy (principal); I25.10 Atherosclerotic heart disease of native coronary artery without angina pectoris; I11.0 Hypertensive heart disease with heart failure; I27.20 Pulmonary hypertension, unspecified; I50.9 Heart failure, unspecified; J44.9 Chronic obstructive pulmonary disease, unspecified; Z87.891 Personal history of nicotine dependence; E11.9 Type 2 diabetes mellitus without complications; Z79.4 Long term (current) use of insulin | CPT/HCPCS: 99214 ==